=== PATIENT | male | born 1960 ===

== ENCOUNTER 2016-10-17 14:33 | Inpatient (IN) | payer MEDICAID, OTHER ==
--- NOTE | 2016-10-17 15:23 | C.PDOC ---
History Of Present Illness 56 y/o male with Hx of ETOH abuse and kidney stones presents to ED with complaints of x5 day of dizziness and bilateral flank pain that radiates to abdomen. Patient also reports x1 episode of vomit today. Patient denies urinary symptoms, Chest pain or Shortness of breath. Patient did not take any medications for symptoms. No other complaints at this time. Time Seen by Provider: 10/17/16 14:49 Chief Complaint (Nursing): Male Genitourinary History Per: Patient History/Exam Limitations: no limitations Onset/Duration Of Symptoms: Days Current Symptoms Are (Timing): Still Present Past Medical History Reviewed: Historical Data, Nursing Documentation, Vital Signs Vital Signs: Last Vital Signs Temp 97.7 F 10/17/16 14:38 Pulse 90 10/17/16 18:36 Resp 16 10/17/16 18:36 BP 141/90 10/17/16 18:36 Pulse Ox 100 10/17/16 18:36 - Medical History PMH: Arthritis, Asthma, Back Problems, HTN, Kidney Stones, Chronic Kidney Disease, Rheumatoid Arthritis Surgical History: Back Surgery Family History: States: Unknown Family Hx - Social History Hx Tobacco Use: Yes Hx Alcohol Use: Yes Hx Substance Use: No - Immunization History Hx Tetanus Toxoid Vaccination: No Hx Influenza Vaccination: Yes (04/11/2016) Hx Pneumococcal Vaccination: Yes (04/11/2016) Review Of Systems Constitutional: Negative for: Fever, Chills Cardiovascular: Negative for: Chest Pain Respiratory: Negative for: Shortness of Breath Gastrointestinal: Positive for: Vomiting. Negative for: Nausea, Diarrhea Musculoskeletal: Positive for: Back Pain Neurological: Negative for: Headache, Dizziness Physical Exam - Physical Exam Appears: Non-toxic, No Acute Distress Skin: Normal Color, Warm Head: Atraumatic, Normacephalic Eye(s): bilateral: Normal Inspection, PERRL, EOMI, Other (mild rotary nystagmus) Oral Mucosa: Dry (Slight dry mucosa) Cardiovascular: Rhythm Regular Respiratory: Normal Breath Sounds, No Rales, No Rhonchi, No Wheezing Gastrointestinal/Abdominal: Soft, No Tenderness, No Guarding, No Rebound Back: CVA Tenderness (Bilat CVA tenderness ), Other (Flank Tenderness) Neurological/Psych: Oriented x3, Normal Speech, Normal Cognition Gait: Other (Upper Gait Nystagmus) ED Course And Treatment - Laboratory Results Result Diagrams: 10/17/16 16:06 10/17/16 16:06 ECG Rhythm: Sinus Rhythm ECG Interpretation: Normal Rate From EC O2 Sat by Pulse Oximetry: 99 (Room air) Pulse Ox Interpretation: Normal - CT Scan/US Abd/pelvic CT/US Interpretation: FINDINGS: LOWER THORAX: 5 mm nodule in right middle lobe. No followup required as per Fleischner society criteria. Stable pleural- based scar in left lower. LIVER: Normal size and contour. Diffusely diminished attenuation consistent with fatty infiltration. No mass. No biliary ductal dilatation. GALLBLADDER AND BILE DUCTS: Unremarkable. PANCREAS: Unremarkable. No gross lesion or ductal dilatation. SPLEEN: Unremarkable. ADRENALS: Unremarkable. No mass. KIDNEYS AND URETERS: Unremarkable. No hydronephrosis. No solid mass. No renal or ureteral calculus. VASCULATURE: Unremarkable. No aortic aneurysm. BOWEL: Unremarkable. No obstruction. No gross mural thickening. APPENDIX: Unremarkable. Normal appendix. PERITONEUM: Unremarkable. No free fluid. No free air. LYMPH NODES: Unremarkable. No enlarged lymph nodes. BLADDER: Unremarkable. REPRODUCTIVE: Normal prostate. BONES: Stable asymmetric right lateral wedge compression deformity of T11 vertebral body. OTHER FINDINGS: None. IMPRESSION: No evidence of urinary calculus or urinary tract obstruction. Fatty infiltration of the liver. Minor findings as above. Stable wedge compression deformity T11 vertebral body. CT head CT/US Interpretation: FINDINGS: HEMORRHAGE: No intracranial hemorrhage. BRAIN : No mass effect or edema. Scattered periventricular and subcortical white matter hypodensities, which are nonspecific, but often seen with chronic microvascular ischemic disease. VENTRICLES: No hydrocephalus. CALVARIUM: Unremarkable. PARANASAL SINUSES: Unremarkable as visualized. No significant inflammatory changes. MASTOID AIR CELLS: Unremarkable as visualized. No inflammatory changes. OTHER FINDINGS: Mild opacification of the right external auditory canal, likely cerumen. IMPRESSION: Scattered nonspecific white matter changes as above. Please note that MRI with diffusion imaging is more sensitive in the detection of acute ischemic event. Medical Decision Making Medical Decision Making: discussed with Dr Lopez, requests admit to Dr Bui Disposition Discussed With : Clay Lopez Doctor Will See Patient In The: ED - Disposition Disposition Time: 18:17 Condition: STABLE - Clinical Impression Clinical Impression: Acute hyponatremia, Dizziness, Back pain - PA / GIS SPECIALIST / Resident Statement MD/DO has reviewed & agrees with the documentation as recorded. - Scribe Statement The provider has reviewed the documentation as recorded by the Scribe Santi Mccoy All medical record entries made by the Scribe were at my direction and personally dictated by me. I have reviewed the chart and agree that the record accurately reflects my personal performance of the history, physical exam, medical decision making, and the department course for this patient. I have also personally directed, reviewed, and agree with the discharge instructions and disposition. Decision To Admit - Pt Status Changed To: Hospital Disposition Of: Inpatient - Admit Certification Admit to Inpatient:: After my assessment, the patient will require hospitalization for at least two midnights. This is because of the severity of symptoms shown, intensity of services needed, and/or the medical risk in this patient being treated as an outpatient. - InPatient: Physician Admission Certification: I certify that this patient requires 2 or more midnights of care for the following reason:: for treatment of hyponatremia - . Bed Request Type: Regular Admitting Physician: Harjit Bui Patient Diagnosis: Acute hyponatremia, Dizziness, Back pain
[2016-10-17 16:14] LABS: BASO % 0.8 % (0.0-2.0); EOS % 1.3 % (0.0-4.0); HEMATOCRIT 40.3 % (35.0-51.0); LYMPH # 0.5 K/uL (1.0-4.3); LYMPH % 16.3 % (20.0-40.0); MEAN CORPUSCULAR HEMOGLOBIN 33.8 pg (27.0-31.0); MEAN CORPUSCULAR HGB CONC 34.1 g/dL (33.0-37.0); MEAN PLATELET VOLUME 9.2 fL (7.2-11.7); MONO # 0.3 K/uL (0.0-0.8); MONO % 11.2 % (0.0-10.0); NRBC % 0.1 % (0.0-2.0); RED CELL DISTRIBUTION WIDTH 14.7 % (11.5-14.5); WHITE BLOOD COUNT 3.1 K/uL (4.8-10.8)
[2016-10-17 16:20] LABS: CHLORIDE 79 mmol/L (98-107)
[2016-10-17 16:21] LABS: POTASSIUM 3.5 mmol/L (3.6-5.2)
[2016-10-17 16:23] LABS: BILIRUBIN,TOTAL 1.8 mg/dL (0.2-1.3); CARBON DIOXIDE 26 mmol/L (22-30); GFR AFRICAN-AMERICAN > 60
[2016-10-17 16:24] LABS: ALB/GLOB RATIO 1.2 (1.0-2.1); ALKALINE PHOSPHATASE 100 U/L (38-126); ALT/SGPT 72 U/L (21-72); AST/SGOT 302 U/L (17-59); BLOOD UREA NITROGEN 8 mg/dL (9-20); CALCIUM 8.9 mg/dl (8.6-10.4); GLUCOSE,RANDOM 93 mg/dL (75-110)
[2016-10-17 16:28] LABS: SODIUM 119 mmol/L (132-148)
--- NOTE | 2016-10-17 16:40 | CT ---
PROCEDURE: CT HEAD WITHOUT CONTRAST. HISTORY: [place] and dizzy x 5 days COMPARISON: None available. TECHNIQUE: Axial computed tomography images were obtained through the head/brain without intravenous contrast. Radiation dose: Total exam DLP = 726.33 mGy-cm. This CT exam was performed using one or more of the following dose reduction techniques: Automated exposure control, adjustment of the mA and/or kV according to patient size, and/or use of iterative reconstruction technique. FINDINGS: HEMORRHAGE: No intracranial hemorrhage. BRAIN: No mass effect or edema. Scattered periventricular and subcortical white matter hypodensities, which are nonspecific, but often seen with chronic microvascular ischemic disease. VENTRICLES: No hydrocephalus. CALVARIUM: Unremarkable. PARANASAL SINUSES: Unremarkable as visualized. No significant inflammatory changes. MASTOID AIR CELLS: Unremarkable as visualized. No inflammatory changes. OTHER FINDINGS: Mild opacification of the right external auditory canal, likely cerumen. IMPRESSION: Scattered nonspecific white matter changes as above. Please note that MRI with diffusion imaging is more sensitive in the detection of acute ischemic event.
[2016-10-17 16:43] LABS: RBC URINE 5 /hpf (0-3); URINE BILIRUBIN NEGATIVE (NEGATIVE); URINE BLOOD 1+ (NEGATIVE); URINE COLOR Yellow (YELLOW); URINE GLUCOSE (UA) NORMAL (Normal); URINE KETONE 1+ mg/dL (NEGATIVE); URINE LEUKOCYTE ESTERASE NEG Leu/uL (Negative); URINE PROTEIN 2+ mg/dL (NEGATIVE); URINE UROBILINOGEN NORMAL mg/dL (0.2-1.0); WBC URINE 1 /hpf (0-5)
--- NOTE | 2016-10-17 16:47 | CT ---
PROCEDURE: CT Abdomen and Pelvis without intravenous contrast HISTORY: bilateral flank pain , hx stones COMPARISON: 08/09/2016 TECHNIQUE: With and without contrast. . Contrast Dose: 0 Radiation dose: Total exam DLP = 205.19 mGy-cm. This CT exam was performed using one or more of the following dose reduction techniques: Automated exposure control, adjustment of the mA and/or kV according to patient size, and/or use of iterative reconstruction technique. FINDINGS: LOWER THORAX: 5 mm nodule in right middle lobe. No followup required as per Fleischner society criteria. Stable pleural-based scar in left lower LIVER: Normal size and contour. Diffusely diminished attenuation consistent with fatty infiltration. No mass. No biliary ductal dilatation. GALLBLADDER AND BILE DUCTS: Unremarkable. PANCREAS: Unremarkable. No gross lesion or ductal dilatation. SPLEEN: Unremarkable. ADRENALS: Unremarkable. No mass. KIDNEYS AND URETERS: Unremarkable. No hydronephrosis. No solid mass. No renal or ureteral calculus. VASCULATURE: Unremarkable. No aortic aneurysm. BOWEL: Unremarkable. No obstruction. No gross mural thickening. APPENDIX: Unremarkable. Normal appendix. PERITONEUM: Unremarkable. No free fluid. No free air. LYMPH NODES: Unremarkable. No enlarged lymph nodes. BLADDER: Unremarkable. REPRODUCTIVE: Normal prostate BONES: Stable asymmetric right lateral wedge compression deformity of T11 vertebral body. OTHER FINDINGS: None. IMPRESSION: No evidence of urinary calculus or urinary tract obstruction. Fatty infiltration of the liver. Minor findings as above. Stable wedge compression deformity T11 vertebral body.
[2016-10-17] MEDS ORDERED: Sodium Chloride 0.9% 1,000 ML IV SCH (18:30)
[2016-10-17] MEDS: Sodium Chloride 0.9% 1,000 ML IV SCH (22:28)
--- NOTE | 2016-10-18 00:54 | CP.PCM.HP ---
<Ed Soares - Last Filed: 10/18/16 00:49> History of Present Illness - History of Present Illness History of Present Illness: C: "back pain" HPI: 56 year old male with history of asthma, HTN, kidney stones, and TB presents with complaint of back pain for 5 days, diarrhea, and one episode of vomiting today. He says he had a kidney stone in the past and that this feels similar. He reports that he has had loose stool for a few days which he described as watery and green/black but no gross blood. He has diffuse aches in his feet, shoulders, and back. On previous admission he had similar complaints. He has some lower abdominal pain. He denies any numbness or tingling but has general weakness. Otherwise he denies any chest pain, cough, SOB, palpitations, dizziness, or recent falls. He reports a history of alcohol use and recently bought a bottle of lorin but denies any withdrawal symptoms. PMD: None PMHx: Htn, asthma, hx of kidney stones, hx TB PSHx: surgery for kidney stones and leg surgery Allergies: NKDA Fam hx: Mother- kidney ca, father- [place] at age 50 Social: smokes 8-10 cigarettes daily for past 30 years.Drinks about 2 beers per week in social events, for past 10 years. Denies illegal drug use. Lives alone. Present on Admission - Present on Admission Any Indicators Present on Admission: No Review of Systems - Constitutional Constitutional: Weakness. absent: Chills, Fever - EENT Eyes: absent: Change in Vision, Spots in Vision Ears: absent: Decreased Hearing Nose/Mouth/Throat: absent: Dysphagia, Sore Throat - Cardiovascular Cardiovascular: absent: Chest Pain, Dyspnea, Leg Edema - Respiratory Respiratory: absent: Cough, Dyspnea, Wheezing - Gastrointestinal Gastrointestinal: Abdominal Pain, Nausea, Vomiting - Genitourinary Genitourinary: absent: Dysuria - Integumentary Integumentary: absent: Lesions, Wounds - Neurological Neurological: Weakness. absent: Dizziness, Headaches - Psychiatric Psychiatric: absent: Anxiety, Depression - Endocrine Endocrine: Fatigue Past Patient History - Infectious Disease Hx of Infectious Diseases: None - Tetanus Immunizations Tetanus Immunization: Unknown - Past Medical History & Family History Past Medical History?: Yes - Past Social History Smoking Status: Light Smoker < 10 Cigarettes Daily Alcohol: Social Drugs: Denies Home Situation {Lives}: Alone - CARDIAC Hx Hypertension: Yes - PULMONARY Hx Asthma: Yes - NEUROLOGICAL Hx Neurological Disorder: No - HEENT Hx HEENT Problems: No - RENAL Hx Chronic Kidney Disease: Yes Hx Kidney Stones: Yes - ENDOCRINE/METABOLIC Hx Endocrine Disorders: No - HEMATOLOGICAL/ONCOLOGICAL Hx Blood Disorders: No - INTEGUMENTARY Hx Dermatological Problems: No - MUSCULOSKELETAL/RHEUMATOLOGICAL Hx Arthritis: Yes Hx Rheumatoid Arthritis: Yes - GASTROINTESTINAL Hx Gastrointestinal Disorders: Yes Hx Constipation: Yes - GENITOURINARY/GYNECOLOGICAL Hx Genitourinary Disorders: No - PSYCHIATRIC Hx Substance Use: No - SURGICAL HISTORY Hx Surgeries: Yes - ANESTHESIA Hx Anesthesia: No Hx Anesthesia Reactions: No Hx Malignant Hyperthermia: No Meds Allergies/Adverse Reactions: Allergies Allergy/AdvReac Type Severity Reaction Status Date / Time No Known Allergies Allergy Verified 10/17/16 14:50 Physical Exam - Constitutional Appears: Non-toxic, No Acute Distress - Head Exam Head Exam: ATRAUMATIC, NORMOCEPHALIC - Eye Exam Eye Exam: Conjunctival injection, EOMI, PERRL Pupil Exam: NORMAL ACCOMODATION, PERRL - ENT Exam ENT Exam: Mucous Membranes Dry. absent: Normal Oropharynx (poor dentition) - Neck Exam Neck exam: Negative for: Tenderness - Respiratory Exam Respiratory Exam: Clear to Auscultation Bilateral, NORMAL BREATHING PATTERN. absent: Rales, Rhonchi, Wheezes - Cardiovascular Exam Cardiovascular Exam: REGULAR RHYTHM, +S1, +S2. absent: Gallop, Rubs, Systolic Murmur - GI/Abdominal Exam GI & Abdominal Exam: Normal Bowel Sounds, Soft, Tenderness (LLQ) Additional comments: scar on left upper abdomen - Rectal Exam Rectal Exam: NORMAL INSPECTION. absent: Black Stool, Bloody Stool - Exam Exam: NORMAL INSPECTION. absent: Circumcision - Extremities Exam Extremities exam: Positive for: normal capillary refill, normal inspection, pedal pulses present. Negative for: pedal edema, tenderness - Back Exam Back exam: CVA tenderness (L), CVA tenderness (R), tenderness (lumbar between T10-:2). absent: paraspinal tenderness - Neurological Exam Neurological exam: Alert, CN II-XII Intact, Oriented x3 - Psychiatric Exam Psychiatric exam: Normal Affect, Normal Mood - Skin Skin Exam: Dry, Intact, Normal Color, Warm Results - Vital Signs Recent Vital Signs: Last Vital Signs Temp 97.6 F 10/17/16 22:25 Pulse 102 H 10/17/16 22:25 Resp 20 10/17/16 22:25 BP 150/87 10/17/16 22:25 Pulse Ox 100 10/17/16 22:25 - Labs Result Diagrams: 10/17/16 16:06 10/17/16 16:06 Labs: Laboratory Results - last 24 hr 10/17/16 21:18 Stool Occult Blood Negative Assessment & Plan - Assessment and Plan (Free Text) Plan: Electrolyte Imbalance * Head CT showed scattered non specific white matter changes [see full report] * EKG showed NSR @90bpm no ST changes * replenish with NS@100 * f/u repeat BMP * f/u urine electrolytes, creatinine Flank pain * No evidence of urinary calculus or urinary tract obstruction, fatty liver, compression deformity of T11 vertebral body [see full report] * afebrile w/o leukocytosis * UA positive for protein, ketones, and blood * pain control w/ motrin and morphine Diarrhea * not active at this time * hemoccult negative * Hgb and hct stable HTN * BP wnl * Continue home norvasc Hx of asthma * Asymptomatic at this time * continue home Ventolin Hx of ETOH abuse * Head CT showed scattered non specific white matter changes [see full report] * Educated on importance of cessation * CIWAA protocol * Ativan 2mg Q4 prn withdrawals Hx of tobacco use * educated on need for cessation * pt refused nicoderm patch ppx * protonix 40mg IV Q12H * Zofran 4mg Q4H * SCD's Assesment and plan discussed with attending physician. <Harjit Bui P - Last Filed: 10/19/16 20:01> Results - Vital Signs Recent Vital Signs: Last Vital Signs Temp 98.4 F 10/19/16 17:01 Pulse 101 H 10/19/16 17:01 Resp 20 10/19/16 17:01 BP 161/91 H 10/19/16 17:01 Pulse Ox 100 10/19/16 17:01 - Labs Result Diagrams: 10/19/16 07:31 10/19/16 07:31 Labs: Laboratory Results - last 24 hr 10/18/16 10/19/16 10/19/16 20:00 00:03 07:31 WBC 4.5 L RBC 3.92 L Hgb 13.4 Hct 39.7 MCV 101.2 H MCH 34.2 H MCHC 33.8 RDW 15.0 H Plt Count 127 L MPV 9.0 Neut % (Auto) 53.7 Lymph % (Auto) 24.5 Mckinley % (Auto) 13.7 H Eos % (Auto) 6.6 H Baso % (Auto) 1.5 Neut # 2.4 Lymph # 1.1 Mckinley # 0.6 Eos # 0.3 Baso # 0.1 Sodium 130 L Potassium 4.3 Chloride 93 L Carbon Dioxide 28 Anion Gap 13 BUN 8 L Creatinine 0.6 L Est GFR ( Amer) > 60 Est GFR (Non-Af Amer) > 60 Random Glucose 87 Calcium 8.9 Total Bilirubin AST ALT Alkaline Phosphatase Total Protein Albumin Globulin Albumin/Globulin Ratio Urine Color Yellow Urine Clarity Clear Urine pH 7.0 Ur Specific Britton 1.008 Urine Protein 1+ H Urine Glucose (UA) 1+ H Urine Ketones Negative Urine Blood Negative Urine Nitrate Negative Urine Bilirubin Negative Urine Urobilinogen Normal Ur Leukocyte Esterase Neg Urine WBC (Auto) < 1 Urine RBC (Auto) 1 10/19/16 07:31 WBC RBC Hgb Hct MCV MCH MCHC RDW Plt Count MPV Neut % (Auto) Lymph % (Auto) Mckinley % (Auto) Eos % (Auto) Baso % (Auto) Neut # Lymph # Mckinley # Eos # Baso # Sodium 129 L Potassium 3.9 Chloride 92 L Carbon Dioxide 25 Anion Gap 16 BUN 6 L Creatinine 0.6 L Est GFR ( Amer) > 60 Est GFR (Non-Af Amer) > 60 Random Glucose 94 Calcium 9.0 Total Bilirubin 1.0 AST 280 H ALT 75 H Alkaline Phosphatase 91 Total Protein 7.5 Albumin 4.1 Globulin 3.4 Albumin/Globulin Ratio 1.2 Urine Color Urine Clarity Urine pH Ur Specific Britton Urine Protein Urine Glucose (UA) Urine Ketones Urine Blood Urine Nitrate Urine Bilirubin Urine Urobilinogen Ur Leukocyte Esterase Urine WBC (Auto) Urine RBC (Auto) Attending/Attestation - Attestation I have personally seen and examined this patient.: Yes I have fully participated in the care of the patient.: Yes I have reviewed all pertinent clinical information: Yes
[2016-10-18] MEDS ORDERED: Albuterol HFA 90 mcg/actuation (8 g) IH PRN (04:00)
[2016-10-18] MEDS: Sodium Chloride 0.9% 1,000 ML IV SCH (04:10)
[2016-10-18 04:51] LABS: BASO % 1.2 % (0.0-2.0); EOS # 0.2 K/uL (0.0-0.7); EOS % 4.8 % (0.0-4.0); HEMATOCRIT 39.3 % (35.0-51.0); LYMPH % 25.6 % (20.0-40.0); MEAN CELL VOLUME 99.3 fL (80.0-94.0); MEAN CORPUSCULAR HEMOGLOBIN 33.9 pg (27.0-31.0); MEAN CORPUSCULAR HGB CONC 34.1 g/dL (33.0-37.0); MEAN PLATELET VOLUME 9.1 fL (7.2-11.7); MONO # 0.5 K/uL (0.0-0.8); MONO % 12.6 % (0.0-10.0); NRBC % 0.1 % (0.0-2.0)
[2016-10-18 05:07] LABS: CHLORIDE 87 mmol/L (98-107)
[2016-10-18 05:08] LABS: POTASSIUM 3.5 mmol/L (3.6-5.2); SODIUM 125 mmol/L (132-148)
[2016-10-18 05:10] LABS: ALB/GLOB RATIO 1.2 (1.0-2.1); AST/SGOT 265 U/L (17-59); BILIRUBIN,TOTAL 1.5 mg/dL (0.2-1.3); BLOOD UREA NITROGEN 10 mg/dL (9-20); CARBON DIOXIDE 29 mmol/L (22-30); GFR AFRICAN-AMERICAN > 60; TOTAL PROTEIN 7.1 g/dL (6.3-8.3)
[2016-10-18 05:11] LABS: ALKALINE PHOSPHATASE 114 U/L (38-126); ALT/SGPT 69 U/L (21-72); CALCIUM 8.8 mg/dl (8.6-10.4); GLUCOSE,RANDOM 96 mg/dL (75-110)
[2016-10-18] MEDS ORDERED: Potassium Chloride 20 mEq ER Tab PO ONE (06:18)
[2016-10-18 06:24] LABS: CREATININE, RANDOM URINE 26.3 mg/dL
[2016-10-18] MEDS ORDERED: Tramadol 25 mg PO PRN (12:39)
--- NOTE | 2016-10-18 15:56 | CP.PCM.PN ---
<Charles Sheldon - Last Filed: 10/18/16 15:50> Subjective - Date & Time of Evaluation Date of Evaluation: 10/18/16 Time of Evaluation: 09:00 - Subjective Subjective: PGY2 on medicine Dr. Cutler service: Pt seen and examined at bedside this morning. Pt reports lower abdominal pain and bilateral flank pain, but later states pain medicine controlled with the pain. Pt also complains bilateral feet pain as well. Objective - Vital Signs/Intake and Output Vital Signs (last 24 hours): Temp Pulse Resp BP Pulse Ox 98.2 F 87 20 132/88 97 10/18/16 08:49 10/18/16 08:49 10/18/16 08:49 10/18/16 08:49 10/18/16 08:49 Intake and Output: 10/18/16 10/18/16 06:59 18:59 Intake Total 800 Output Total 1000 Balance -200 - Medications Medications: Current Medications Albuterol (Ventolin Hfa 90 Mcg/Actuation (8 G)) 1 puff IH RQ4 PRN PRN Reason: Shortness of Breath Amlodipine Besylate (Norvasc) 10 mg PO DAILY [facility] Last Admin: 10/18/16 09:54 Dose: 10 mg Heparin Sodium (Porcine) (Heparin) 5,000 units SC Q8 [facility] Last Admin: 10/18/16 13:47 Dose: 5,000 units Ibuprofen (Motrin Tab) 600 mg PO Q6H PRN PRN Reason: Pain, moderate (4-7) Last Admin: 10/18/16 09:54 Dose: 600 mg Morphine Sulfate (Morphine) 2 mg IVP Q4 PRN PRN Reason: Pain, severe (8-10) Last Admin: 10/18/16 08:54 Dose: 2 mg Ondansetron HCl (Zofran Inj) 4 mg IVP Q6 PRN PRN Reason: Nausea/Vomiting Pantoprazole Sodium (Protonix Inj) 40 mg IVP Q12H [facility] Last Admin: 10/18/16 09:55 Dose: 40 mg Pneumococcal Polyvalent Vaccine (Pneumovax 23 Vaccine) 0.5 ml IM .ONCE ONE Stop: 10/19/16 10:01 Tramadol HCl (Ultram) 25 mg PO TID PRN PRN Reason: moderate pain - Labs Labs: 10/18/16 04:47 10/18/16 04:47 - Constitutional Appears: Non-toxic, No Acute Distress - Head Exam Head Exam: NORMAL INSPECTION, NORMOCEPHALIC - Eye Exam Eye Exam: Normal appearance Pupil Exam: NORMAL ACCOMODATION - Respiratory Exam Respiratory Exam: Clear to Ausculation Bilateral, NORMAL BREATHING PATTERN. absent: Rhonchi, Wheezes - Cardiovascular Exam Cardiovascular Exam: REGULAR RHYTHM, +S1, +S2. absent: Gallop, Rubs - GI/Abdominal Exam GI & Abdominal Exam: Soft, Tenderness (lower abdomen ), Normal Bowel Sounds - Extremities Exam Extremities Exam: Normal Capillary Refill. absent: Calf Tenderness, Joint Swelling, Pedal Edema Additional comments: +pedal pulse bilaterally, negative straight leg - Back Exam Additional comments: questionable bilateral CVA tenderness, likely musculoskeletal origin. No spinal tenderness on palpation - Neurological Exam Neurological Exam: Alert, Awake, Oriented x3 - Psychiatric Exam Psychiatric exam: Normal Mood - Skin Skin Exam: Intact Assessment and Plan - Assessment and Plan (Free Text) Assessment: Electrolyte Imbalance * Head CT showed scattered non specific white matter changes [see full report] * EKG showed NSR @90bpm no ST changes * replenish with NS@100 * Repeat Na 125 * Urine osmo 146 * Nephro Dr. Chanel consulted, help appreciated. Elevated LFT * AST 302, ALT 72 on admission * AST 265, ALT 69 today, improved * T bili trending down * Negative HIV and hepatitis panel * Continue monitoring, likely secondary to fatty liver vs ETOH Flank pain * No evidence of urinary calculus or urinary tract obstruction, fatty liver, compression deformity of T11 vertebral body [see full report] * Pt had chronic T11 compression deformity since 04/16/16 CT * afebrile w/o leukocytosis * UA positive for protein, ketones, and blood * pain control w/ motrin and morphine * F/U MRI lumbar with T10-T12 levels, consult IR if needed Diarrhea * not active at this time * hemoccult negative * Hgb and hct stable HTN * BP wnl * Continue home norvasc Hx of asthma * Asymptomatic at this time * continue home Ventolin Hx of ETOH abuse * Head CT showed scattered non specific white matter changes [see full report] * Educated on importance of cessation * CIWAA protocol * Ativan 2mg Q4 prn withdrawals Hx of tobacco use * educated on need for cessation * pt refused nicoderm patch ppx * protonix 40mg IV Q12H * Zofran 4mg Q4H * SCD's <Kate Cutlert - Last Filed: 11/23/16 11:51> Objective - Vital Signs/Intake and Output Vital Signs (last 24 hours): Temp Pulse Resp BP Pulse Ox 98.1 F 101 H 20 121/82 99 10/21/16 08:16 10/21/16 08:16 10/21/16 08:16 10/21/16 08:16 10/30/16 14:49 - Labs Labs: 10/21/16 07:09 10/21/16 07:09 PT 10.0 SECONDS (9.7-12.2) 10/20/16 07:22 INR 0.9 10/20/16 07:22 APTT 71 SECONDS (21-34) H D 10/20/16 07:22 Attending/Attestation - Attestation I have personally seen and examined this patient.: Yes I have fully participated in the care of the patient.: Yes I have reviewed all pertinent clinical information, including history, physical exam and plan: Yes Notes (Text): Patient seen and examined with the resident. Agree with the resident's evaluation, assessment and plan. Electrolyte Imbalance - Hyponatremia Elevated LFT -fatty liver and ETOH
[2016-10-18 17:46] LABS: INR 0.9
[2016-10-18 20:23] LABS: CHLORIDE 93 mmol/L (98-107); POTASSIUM 4.3 mmol/L (3.6-5.2); SODIUM 130 mmol/L (132-148)
[2016-10-18 20:26] LABS: BLOOD UREA NITROGEN 8 mg/dL (9-20); CARBON DIOXIDE 28 mmol/L (22-30); GFR AFRICAN-AMERICAN > 60; GLUCOSE,RANDOM 87 mg/dL (75-110)
[2016-10-18 20:27] LABS: CALCIUM 8.9 mg/dl (8.6-10.4)
[2016-10-19 00:08] LABS: RBC URINE 1 /hpf (0-3); URINE BILIRUBIN NEGATIVE (NEGATIVE); URINE BLOOD NEGATIVE (NEGATIVE); URINE COLOR Yellow (YELLOW); URINE GLUCOSE (UA) 1+ mg/dL (Normal); URINE KETONE NEGATIVE (NEGATIVE); URINE LEUKOCYTE ESTERASE NEG Leu/uL (Negative); URINE PROTEIN 1+ mg/dL (NEGATIVE); URINE UROBILINOGEN NORMAL mg/dL (0.2-1.0); WBC URINE < 1 /hpf (0-5)
[2016-10-19 07:38] LABS: BASO # 0.1 K/uL (0.0-0.2); BASO % 1.5 % (0.0-2.0); EOS # 0.3 K/uL (0.0-0.7); EOS % 6.6 % (0.0-4.0); HEMATOCRIT 39.7 % (35.0-51.0); LYMPH # 1.1 K/uL (1.0-4.3); LYMPH % 24.5 % (20.0-40.0); MEAN CELL VOLUME 101.2 fL (80.0-94.0); MEAN CORPUSCULAR HEMOGLOBIN 34.2 pg (27.0-31.0); MEAN CORPUSCULAR HGB CONC 33.8 g/dL (33.0-37.0); MONO # 0.6 K/uL (0.0-0.8); MONO % 13.7 % (0.0-10.0); NRBC % 0.1 % (0.0-2.0); WHITE BLOOD COUNT 4.5 K/uL (4.8-10.8)
[2016-10-19 08:03] LABS: CHLORIDE 92 mmol/L (98-107); SODIUM 129 mmol/L (132-148)
[2016-10-19 08:04] LABS: POTASSIUM 3.9 mmol/L (3.6-5.2)
[2016-10-19 08:06] LABS: ALB/GLOB RATIO 1.2 (1.0-2.1); ALKALINE PHOSPHATASE 91 U/L (38-126); ALT/SGPT 75 U/L (21-72); AST/SGOT 280 U/L (17-59); BLOOD UREA NITROGEN 6 mg/dL (9-20); CARBON DIOXIDE 25 mmol/L (22-30); GFR AFRICAN-AMERICAN > 60; GLUCOSE,RANDOM 94 mg/dL (75-110); TOTAL PROTEIN 7.5 g/dL (6.3-8.3)
[2016-10-19] MEDS ORDERED: Pneumococcal 23-Valent Vaccine IM ONE (10:00)
--- NOTE | 2016-10-19 15:04 | CP.PCM.PN ---
<Charles Sheldon - Last Filed: 10/19/16 15:02> Subjective - Date & Time of Evaluation Date of Evaluation: 10/19/16 Time of Evaluation: 09:00 - Subjective Subjective: PGY2 on medicine Dr. Cutler service: Pt seen and examined at bedside this morning. Pt reports lower abdominal pain and bilateral flank pain still but controlled with medicine. Pt also complains bilateral feet pain again. Objective - Vital Signs/Intake and Output Vital Signs (last 24 hours): Temp Pulse Resp BP Pulse Ox 97.8 F 88 17 120/81 99 10/19/16 08:15 10/19/16 08:15 10/19/16 08:15 10/19/16 08:15 10/19/16 08:15 Intake and Output: 10/19/16 10/19/16 06:59 18:59 Intake Total 1050 Output Total 700 Balance 350 - Medications Medications: Current Medications Albuterol (Ventolin Hfa 90 Mcg/Actuation (8 G)) 1 puff IH RQ4 PRN PRN Reason: Shortness of Breath Amlodipine Besylate (Norvasc) 10 mg PO DAILY [facility] Last Admin: 10/19/16 09:36 Dose: 10 mg Heparin Sodium (Porcine) (Heparin) 5,000 units SC Q8 [facility] Last Admin: 10/19/16 13:09 Dose: 5,000 units Ibuprofen (Motrin Tab) 600 mg PO Q6H PRN PRN Reason: Pain, moderate (4-7) Last Admin: 10/18/16 18:10 Dose: 600 mg Morphine Sulfate (Morphine) 2 mg IVP Q4 PRN PRN Reason: Pain, severe (8-10) Last Admin: 10/19/16 08:36 Dose: 2 mg Ondansetron HCl (Zofran Inj) 4 mg IVP Q6 PRN PRN Reason: Nausea/Vomiting Pantoprazole Sodium (Protonix Inj) 40 mg IVP Q12H [facility] Last Admin: 10/19/16 09:36 Dose: 40 mg - Labs Labs: 10/19/16 07:31 10/19/16 07:31 PT 10.5 SECONDS (9.7-12.2) 10/18/16 17:16 INR 0.9 10/18/16 17:16 APTT 51 SECONDS (21-34) H 05/20/17 17:16 - Constitutional Appears: Non-toxic, No Acute Distress - Head Exam Head Exam: NORMOCEPHALIC - Eye Exam Eye Exam: Normal appearance Pupil Exam: NORMAL ACCOMODATION - ENT Exam ENT Exam: Mucous Membranes Moist - Respiratory Exam Respiratory Exam: Clear to Ausculation Bilateral, NORMAL BREATHING PATTERN. absent: Rhonchi, Wheezes - Cardiovascular Exam Cardiovascular Exam: REGULAR RHYTHM, +S1, +S2. absent: Gallop, Rubs - GI/Abdominal Exam GI & Abdominal Exam: Soft, Normal Bowel Sounds - Extremities Exam Extremities Exam: absent: Pedal Edema - Back Exam Back Exam: tenderness - Neurological Exam Neurological Exam: Alert, Awake, Oriented x3 - Psychiatric Exam Psychiatric exam: Normal Mood Assessment and Plan - Assessment and Plan (Free Text) Assessment: Flank pain * No evidence of urinary calculus or urinary tract obstruction, fatty liver, compression deformity of T11 vertebral body [see full report] * Pt had chronic T11 compression deformity since 04/16/16 CT * afebrile w/o leukocytosis * UA positive for protein, ketones, and blood * pain control w/ motrin and morphine * F/U MRI lumbar with T10-T12 levels, consult IR if needed Electrolyte Imbalance * Head CT showed scattered non specific white matter changes [see full report] * EKG showed NSR @90bpm no ST changes * replenish with NS@100 * Na improving * Urine osmo 146 * Nephro Dr. Chanel consulted, help appreciated. Elevated LFT * AST 302, ALT 72 on admission * AST 265, ALT 69 today, improved * T bili trending down * Negative HIV and hepatitis panel * Continue monitoring, likely secondary to fatty liver vs ETOH Diarrhea * not active at this time * hemoccult negative * Hgb and hct stable HTN * BP wnl * Continue home norvasc Hx of asthma * Asymptomatic at this time * continue home Ventolin Hx of ETOH abuse * Head CT showed scattered non specific white matter changes [see full report] * Educated on importance of cessation * CIWAA protocol * Ativan 2mg Q4 prn withdrawals Hx of tobacco use * educated on need for cessation * pt refused nicoderm patch ppx * protonix 40mg IV Q12H * Zofran 4mg Q4H * SCD's <Michael Cutler - Last Filed: 11/23/16 11:59> Objective - Vital Signs/Intake and Output Vital Signs (last 24 hours): Temp Pulse Resp BP Pulse Ox 98.1 F 101 H 20 121/82 99 10/21/16 08:16 10/21/16 08:16 10/21/16 08:16 10/21/16 08:16 10/30/16 14:49 - Labs Labs: 10/21/16 07:09 10/21/16 07:09 PT 10.0 SECONDS (9.7-12.2) 10/20/16 07:22 INR 0.9 10/20/16 07:22 APTT 71 SECONDS (21-34) H D 10/20/16 07:22 Attending/Attestation - Attestation I have personally seen and examined this patient.: Yes I have fully participated in the care of the patient.: Yes I have reviewed all pertinent clinical information, including history, physical exam and plan: Yes Notes (Text): Patient seen and examined with the resident. Agree with the resident's assessment, evaluation and plan. Flank pain Electrolyte Imbalance Elevated LFT Diarrhea HTN
[2016-10-19] MEDS ORDERED: Sodium Chloride 0.9% 1,000 ML IV ONE (21:37)
--- NOTE | 2016-10-19 22:36 | CP.PCM.PN ---
Subjective - Date & Time of Evaluation Date of Evaluation: 10/19/16 Time of Evaluation: 12:45 - Subjective Subjective: Patient reports back pain improved; Objective - Vital Signs/Intake and Output Vital Signs (last 24 hours): Temp Pulse Resp BP Pulse Ox 98.4 F 101 H 20 161/91 H 100 10/19/16 17:01 10/19/16 17:01 10/19/16 17:01 10/19/16 17:01 10/19/16 17:01 - Medications Medications: Current Medications Albuterol (Ventolin Hfa 90 Mcg/Actuation (8 G)) 1 puff IH RQ4 PRN PRN Reason: Shortness of Breath Amlodipine Besylate (Norvasc) 10 mg PO DAILY [facility] Last Admin: 10/19/16 09:36 Dose: 10 mg Heparin Sodium (Porcine) (Heparin) 5,000 units SC Q8 [facility] [place] Last Admin: 10/19/16 22:28 Dose: 5,000 units Ibuprofen (Motrin Tab) 600 mg PO Q6H PRN PRN Reason: Pain, moderate (4-7) Last Admin: 10/18/16 18:10 Dose: 600 mg Morphine Sulfate (Morphine) 2 mg IVP Q4 PRN PRN Reason: Pain, severe (8-10) Last Admin: 10/19/16 19:36 Dose: 2 mg Ondansetron HCl (Zofran Inj) 4 mg IVP Q6 PRN PRN Reason: Nausea/Vomiting Pantoprazole Sodium (Protonix Inj) 40 mg IVP Q12H [facility] [place] Last Admin: 10/19/16 22:28 Dose: 40 mg - Labs Labs: 10/19/16 07:31 10/19/16 07:31 PT 10.5 SECONDS (9.7-12.2) 10/18/16 17:16 INR 0.9 10/18/16 17:16 APTT 51 SECONDS (21-34) H 10/18/16 17:16 - Constitutional Appears: Well, No Acute Distress - Head Exam Head Exam: NORMAL INSPECTION - Eye Exam Eye Exam: Normal appearance - ENT Exam ENT Exam: Mucous Membranes Moist - Neck Exam Neck Exam: Normal Inspection - Respiratory Exam Respiratory Exam: Clear to Ausculation Bilateral, NORMAL BREATHING PATTERN. absent: Respiratory Distress - Cardiovascular Exam Cardiovascular Exam: REGULAR RHYTHM, +S1, +S2 - GI/Abdominal Exam GI & Abdominal Exam: Soft. absent: Distended, Tenderness - Extremities Exam Extremities Exam: Normal Inspection - Neurological Exam Neurological Exam: Alert, Awake - Psychiatric Exam Psychiatric exam: Normal Affect Additional comments: somewhat depressed mood - Skin Skin Exam: Warm. absent: Cyanosis Assessment and Plan (1) Acute hyponatremia Assessment & Plan: Resolving, likely secondary to volume depletion and possibly component of SIADH in the setting of pain; had to give 1L D5W over 4 hrs due to rapid correction of hyponatremia (goal was 6-8 meq/L over 24 hrs but dale by 11 meq/L); Na today of 129 acceptable; should improve further on its own as patient continues to have better PO intake; Status: Acute (2) HTN (hypertension), benign Assessment & Plan: Controlled, continue norvasc 10 mg daily; Status: Acute (3) Back pain Assessment & Plan: T11 compression deformity; for MRI; pain adequately controlled, ok to give NSAIDS; Status: Acute (4) Proteinuria Assessment & Plan: Etiology unclear; no overt renal insufficiency; still haven't gotten quantified value yet; will check C3, C4 and CARL; Status: Acute
[2016-10-20 07:35] LABS: BASO # 0.1 K/uL (0.0-0.2); BASO % 0.9 % (0.0-2.0); EOS # 0.2 K/uL (0.0-0.7); EOS % 3.8 % (0.0-4.0); HEMATOCRIT 37.8 % (35.0-51.0); LYMPH # 1.3 K/uL (1.0-4.3); LYMPH % 21.9 % (20.0-40.0); MEAN CELL VOLUME 101.5 fL (80.0-94.0); MEAN CORPUSCULAR HEMOGLOBIN 34.2 pg (27.0-31.0); MEAN CORPUSCULAR HGB CONC 33.7 g/dL (33.0-37.0); MEAN PLATELET VOLUME 8.8 fL (7.2-11.7); MONO # 0.7 K/uL (0.0-0.8); MONO % 11.5 % (0.0-10.0); RED CELL DISTRIBUTION WIDTH 15.2 % (11.5-14.5); WHITE BLOOD COUNT 6.1 K/uL (4.8-10.8)
[2016-10-20 07:39] LABS: CHLORIDE 89 mmol/L (98-107); INR 0.9; SODIUM 126 mmol/L (132-148)
[2016-10-20 07:40] LABS: POTASSIUM 3.8 mmol/L (3.6-5.2)
[2016-10-20 07:42] LABS: ALB/GLOB RATIO 1.3 (1.0-2.1); ALKALINE PHOSPHATASE 81 U/L (38-126); ALT/SGPT 72 U/L (21-72); AST/SGOT 200 U/L (17-59); BLOOD UREA NITROGEN 6 mg/dL (9-20); CALCIUM 9.4 mg/dl (8.6-10.4); CARBON DIOXIDE 25 mmol/L (22-30); GFR AFRICAN-AMERICAN > 60; GLUCOSE,RANDOM 127 mg/dL (75-110); TOTAL PROTEIN 7.5 g/dL (6.3-8.3)
--- NOTE | 2016-10-20 09:12 | CON ---
DATE: 10/18/2016 The patient is a 56-year-old male with a past medical history of hypertension, nephrolithiasis, asthm a and history of treated tuberculosis, presented with complaint of low back pain for the last 1 week, found to have severe hyponatremia. Nephrology, therefore, being consulted. The patient reports developing this back pain over the past 1 week to 10 days, which progressively go t worse, located bilaterally lower back. Was taking Advil twice a day with incomplete relief. The p atkarmen has had decreased p.o. fluid intake during this time period and reports that he started drinki ng more milk, up to 3 glasses a day, and was drinking about 3 glasses a day of water. On the day of presentation, the patient reports having vomited and feeling dizzy, which is why he called an ambulan ce to come here. PAST MEDICAL HISTORY: As mentioned above, reports some sort of procedure done for bilateral kidney s tones about [address] [facility], cannot say exactly what type of procedure, but does indicate that tub es were placed to drain fluid, possibly nephrostomy tubes. SOCIAL HISTORY: Smokes 8-10 cigarettes per day, reports not having smoked for the last few days. Dr singh only at parties. FAMILY HISTORY: Mother with kidney cancer. Father with LA at age 50. REVIEW OF SYSTEMS: CONSTITUTIONAL: Reports associated fevers with his pain recently. Otherwise, his appetite had previ ously been very good. HEENT: Reports some blurry vision yesterday, but has improved today. Denies any sore throat or diff iculty swallowing. Denies any decreased hearing. RESPIRATORY: Reports some cough. CARDIOVASCULAR: Denies any leg swelling or shortness of breath. GASTROINTESTINAL: As mentioned in HPI. Also, reporting lower abdominal pain over the past several d ays. GENITOURINARY: Denies any dysuria or difficulty urinating, no hematuria. SKIN: Denies itching or rashes. NEUROLOGIC: Reports some dizziness yesterday; otherwise, no headaches. PSYCHIATRIC: Denies any depression. PHYSICAL EXAMINATION: VITAL SIGNS: This morning, blood pressure 132/88, heart rate 87, respirations 20, temperature 98.2, O2 sat 97% on room air. GENERAL: No distress, lying flat comfortably, able to converse coherently in full sentences. HEENT: Moist mucous membranes, nonicteric. NECK: No elevated JVD. RESPIRATORY: Lungs are clear to auscultation bilaterally, no rales, no rhonchi, no wheezes. CARDIOVASCULAR: S1, S2, heart sounds normal, no murmurs, no gallops, no rubs. GASTROINTESTINAL: Abdomen tender in lower quadrants, nondistended, soft. GENITOURINARY: No bladder distention. EXTREMITIES: No leg edema. SKIN: Warm, no cyanosis. Normal capillary refill. NEUROLOGIC: Alert and oriented, following commands. PSYCHIATRIC: Normal mood, normal affect. LABORATORY DATA: Labs this morning CBC: WBC 4.0, hemoglobin 13.4, hematocrit 39.3, platelets 110. Chemistry panel: Sodium 125, increased from 119; potassium 3.5, chloride 87, bicarbonate 29, BUN 10, creatinine 0.6. T-bili 1.5, AST 265, ALT 69. UA from yesterday on presentation: Specific gravity 1.010, protein 2+, ketones 1+, blood 1+, urine osmolality this morning 146, urine sodium 22. Abdomin al and pelvis CT done on admission, no evidence of nephrolithiasis currently. ASSESSMENT: 1. Hyponatremia, improving, may be multifactorial. The patient gives a history of decreased p.o. fl uid intake and just consuming milk and water, which would indicate a decreased intake with incr eased free water intake. At the same time, the patient may have gotten volume depleted as well and i n that setting would have had elevated ADH levels that would further cause hyponatremia to worsen. T hirdly, the patient reports being in pain and so cannot rule out a component of syndrome of inappropr iate antidiuretic hormone. Urine osmolality and urine sodium checked about 10 hours after presentati on after the patient had already received a significant amount of volume repletion and it is quite po ssible that urine osmolality on presentation, if checked, may have been very high and decreased drama tically after the patient was volume replenishment. The patient's rise in serum sodium also correlat es with volume replenishment as well as pain control, which would also diminish the stimulus for SIAD H. Nevertheless, the goal right now should be to ensure that serum sodium does not increase further today in order to avoid osmotic demyelination from rapid increase in serum sodium as the patient has risk factors including serum sodium less than 120 and possible liver disease as evidenced by elevated transaminases. Obtaining a stat BMP. If serum sodium is further increased, will give D5W in order to lower it as our goal for correction over 24 hours should be no more than 8 mEq per liter. 2. Electrolyte abnormalities on presentation. The patient with increased anion gap indicative of an underlying gap acidosis, which with a normal bicarbonate is indicative of a superimposed metabolic a lkalosis. Gap acidosis likely from ketosis as seen with urinalysis showing 1+ ketones and metabolic alkalosis may be due to volume contraction or possibly as compensation for respiratory acidosis. Nev ertheless, this gap acidosis has resolved. Monitor electrolytes. Replenish potassium as needed. 3. Proteinuria/hematuria. May just be a sporadic finding. Will repeat UA and obtain urine protein and creatinine to assess for degree of proteinuria. 4. Low back pain secondary to T11 vertebral body compression deformity. The patient is on ibuprofen p.r.n. and morphine p.r.n. for pain. No contraindications from renal point of view. 5. Hypertension. The patient is on Norvasc 10 mg daily. Continue the same. Currently is normotens ana maria. Seferino Chanel MD cc: [id number] TT: 10/18/2016 19:52:08 Confirmation # [id number] Dictation # [id number] veronica
--- NOTE | 2016-10-20 10:27 | CARD ---
APPROVED REPORT EKG Measurement Heart [id number] MD [id number] <Conclusion> Normal sinus rhythm Normal ECG
--- NOTE | 2016-10-20 14:29 | CARD ---
APPROVED REPORT EKG Measurement Heart [id number] ME [id number] <Conclusion> Sinus tachycardia Otherwise normal ECG
--- NOTE | 2016-10-20 16:43 | CP.PCM.PN ---
<LexaCintia - Last Filed: 10/20/16 16:41> Subjective - Date & Time of Evaluation Date of Evaluation: 10/20/16 Time of Evaluation: 07:50 - Subjective Subjective: Pt seen and examined at bedside this morning. Pt reports lower abdominal pain and bilateral flank pain still but controlled with medicine. Pt also complains bilateral feet pain again. He states the pain is improving, however. He has no other complaints, He is tolerating diet, having BMs, and is ambulating. Objective - Vital Signs/Intake and Output Vital Signs (last 24 hours): Temp Pulse Resp BP Pulse Ox 97.4 F L 82 18 151/89 H 99 10/20/16 07:35 10/20/16 15:30 10/20/16 07:35 10/20/16 07:35 10/20/16 07:35 Intake and Output: 10/20/16 10/20/16 06:59 18:59 Output Total 350 Balance -350 - Medications Medications: Current Medications Albuterol (Ventolin Hfa 90 Mcg/Actuation (8 G)) 1 puff IH RQ4 PRN PRN Reason: Shortness of Breath Amlodipine Besylate (Norvasc) 10 mg PO DAILY [facility] Last Admin: 10/20/16 09:47 Dose: 10 mg Heparin Sodium (Porcine) (Heparin) 5,000 units SC Q8 [facility] Last Admin: 10/20/16 14:47 Dose: 5,000 units Ibuprofen (Motrin Tab) 600 mg PO Q6H PRN PRN Reason: Pain, moderate (4-7) Last Admin: 10/20/16 13:42 Dose: 600 mg Morphine Sulfate (Morphine) 2 mg IVP Q4 PRN PRN Reason: Pain, severe (8-10) Last Admin: 10/20/16 05:22 Dose: 2 mg Ondansetron HCl (Zofran Inj) 4 mg IVP Q6 PRN PRN Reason: Nausea/Vomiting Pantoprazole Sodium (Protonix Inj) 40 mg IVP Q12H [facility] Last Admin: 10/20/16 09:47 Dose: 40 mg - Labs Labs: 10/20/16 07:22 10/20/16 07:22 PT 10.0 SECONDS (9.7-12.2) 10/20/16 07:22 INR 0.9 10/20/16 07:22 APTT 71 SECONDS (21-34) H D 10/20/16 07:22 - Constitutional Appears: Non-toxic, No Acute Distress - Head Exam Head Exam: ATRAUMATIC, NORMAL INSPECTION - Eye Exam Eye Exam: EOMI, Normal appearance, PERRL Pupil Exam: NORMAL ACCOMODATION - ENT Exam ENT Exam: Mucous Membranes Moist - Respiratory Exam Respiratory Exam: Clear to Ausculation Bilateral, NORMAL BREATHING PATTERN. absent: Accessory Muscle Use, Respiratory Distress - Cardiovascular Exam Cardiovascular Exam: REGULAR RHYTHM, +S1, +S2 - GI/Abdominal Exam GI & Abdominal Exam: Soft, Normal Bowel Sounds. absent: Distended, Firm, Guarding, Tenderness - Extremities Exam Extremities Exam: Normal Inspection. absent: Calf Tenderness - Back Exam Back Exam: NORMAL INSPECTION, paraspinal tenderness. absent: CVA tenderness (L) , CVA tenderness (R) - Neurological Exam Neurological Exam: Alert, Awake, CN II-XII Intact, Oriented x3 - Psychiatric Exam Psychiatric exam: Normal Affect, Normal Mood - Skin Skin Exam: Dry, Intact, Normal Color, Warm Assessment and Plan - Assessment and Plan (Free Text) Assessment: Flank pain * Resolving * F/U MRI lumbar with T10-T12 levels, consult IR if needed * No evidence of urinary calculus or urinary tract obstruction, fatty liver, compression deformity of T11 vertebral body [see full report] * Pt had chronic T11 compression deformity since 04/16/16 CT * afebrile w/o leukocytosis * UA positive for protein, ketones, and blood * pain control w/ motrin and morphine Electrolyte Imbalance * Head CT showed scattered non specific white matter changes [see full report] * EKG showed NSR @90bpm no ST changes * replenish with NS@100 * Na 126 * Urine osmo 146 * Nephro Dr. Chanel consulted, help appreciated. Elevated LFT * AST 302, ALT 72 on admission * AST 265, ALT 69 today, improved * T bili trending down * Negative HIV and hepatitis panel * Continue monitoring, likely secondary to fatty liver vs ETOH Diarrhea * not active at this time * hemoccult negative * Hgb and hct stable HTN * BP wnl * Continue home norvasc Hx of asthma * Asymptomatic at this time * continue home Ventolin Hx of ETOH abuse * Head CT showed scattered non specific white matter changes [see full report] * Educated on importance of cessation * NIKKI protocol * Ativan 2mg Q4 prn withdrawals Hx of tobacco use * educated on need for cessation * pt refused nicoderm patch ppx * protonix 40mg IV Q12H * Zofran 4mg Q4H * SCD's <Sohan Richards M - Last Filed: 10/20/16 17:20> Objective - Vital Signs/Intake and Output Vital Signs (last 24 hours): Temp Pulse Resp BP Pulse Ox 97.7 F 110 H 20 132/87 100 10/20/16 16:46 10/20/16 16:46 10/20/16 16:46 10/20/16 16:46 10/20/16 16:46 Intake and Output: 10/20/16 10/20/16 06:59 18:59 Output Total 350 Balance -350 - Medications Medications: Current Medications Albuterol (Ventolin Hfa 90 Mcg/Actuation (8 G)) 1 puff IH RQ4 PRN PRN Reason: Shortness of Breath Amlodipine Besylate (Norvasc) 10 mg PO DAILY [facility] Last Admin: 10/20/16 09:47 Dose: 10 mg Heparin Sodium (Porcine) (Heparin) 5,000 units SC Q8 [facility] Last Admin: 10/20/16 14:47 Dose: 5,000 units Ibuprofen (Motrin Tab) 600 mg PO Q6H PRN PRN Reason: Pain, moderate (4-7) Last Admin: 10/20/16 13:42 Dose: 600 mg Morphine Sulfate (Morphine) 2 mg IVP Q4 PRN PRN Reason: Pain, severe (8-10) Last Admin: 10/20/16 05:22 Dose: 2 mg Ondansetron HCl (Zofran Inj) 4 mg IVP Q6 PRN PRN Reason: Nausea/Vomiting Pantoprazole Sodium (Protonix Inj) 40 mg IVP Q12H [facility] Last Admin: 10/20/16 09:47 Dose: 40 mg - Labs Labs: 10/20/16 07:22 10/20/16 07:22 PT 10.0 SECONDS (9.7-12.2) 10/20/16 07:22 INR 0.9 10/20/16 07:22 APTT 71 SECONDS (21-34) H D 10/20/16 07:22 Attending/Attestation - Attestation I have personally seen and examined this patient.: Yes I have fully participated in the care of the patient.: Yes I have reviewed all pertinent clinical information, including history, physical exam and plan: Yes Notes (Text): 10/20/16 17:19 Patient was seen and examined at bedside with the resident today. Doesn't complain of back pain at this time. Patient is ambulating. Follow-up remote of the MRI of the lumbar spine. Hyponatremia noted. Management as per nephrology. Discharge planning after the result of the MRI report is available. I discussed the plan of care with the resident and agree with the above history and physical and assessment/plan by the resident
[2016-10-20 16:47] VITALS: RESP 20
--- NOTE | 2016-10-20 18:00 | MRI ---
PROCEDURE: MR LUMBAR SPINE WITHOUT CONTRAST HISTORY: T11 compression fracture COMPARISON: Comparison is made to the previous CT study dated 04/16/2016 TECHNIQUE: Multiecho multiplanar sequences were performed through the lumbar spine without the use of intravenous contrast. FINDINGS: Again seen is moderate compression deformity of T11 vertebral body. There is severe narrowing of the intervertebral disc is space and almost complete fusion of the T10-T11. No evidence of bone marrow edema to suggest acute pathology. No evidence of destructive bony lesion. No evidence of spinal or neural foraminal narrowing at T11 level. Normal lumbar lordosis. Vertebral body heights are preserved. Marrow signal unremarkable. Conus medullaris unremarkable at the level of T12-L1 Paraspinal soft tissues are unremarkable. T12-L1: No disc herniation, spinal canal stenosis or neural foraminal narrowing. L1-2: No disc herniation, spinal canal stenosis or neural foraminal narrowing. L2-3: No disc herniation, spinal canal stenosis or neural foraminal narrowing. L3-4: No disc herniation, spinal canal stenosis or neural foraminal narrowing. L4-5: No disc herniation, spinal canal stenosis or neural foraminal narrowing. L5-S1: No disc herniation, spinal canal stenosis or neural foraminal narrowing. OTHER FINDINGS: None. IMPRESSION: Moderate compression deformity of T11 likely old without evidence of bone marrow edema or destructive bony lesion. Severe narrowing of the T10-T11 disc space. Findings have not significantly change comparing to the previous CT dated 04/16/2016. No evidence of acute pathology at the lumbar spine. No evidence of spinal or neural foraminal narrowing.
--- NOTE | 2016-10-20 23:42 | CP.PCM.PN ---
Subjective - Date & Time of Evaluation Date of Evaluation: 10/20/16 Time of Evaluation: 18:00 - Subjective Subjective: Patient reports feeling well, awaiting result of MRI of spine done today; Objective - Vital Signs/Intake and Output Vital Signs (last 24 hours): Temp Pulse Resp BP Pulse Ox 97.7 F 110 H 20 132/87 100 10/20/16 16:46 10/20/16 16:46 10/20/16 16:46 10/20/16 16:46 10/20/16 16:46 - Medications Medications: Current Medications Albuterol (Ventolin Hfa 90 Mcg/Actuation (8 G)) 1 puff IH RQ4 PRN PRN Reason: Shortness of Breath Amlodipine Besylate (Norvasc) 10 mg PO DAILY [facility] Last Admin: 10/20/16 09:47 Dose: 10 mg Heparin Sodium (Porcine) (Heparin) 5,000 units SC Q8 [facility] Last Admin: 10/20/16 21:35 Dose: 5,000 units Ibuprofen (Motrin Tab) 600 mg PO Q6H PRN PRN Reason: Pain, moderate (4-7) Last Admin: 10/20/16 13:42 Dose: 600 mg Morphine Sulfate (Morphine) 2 mg IVP Q4 PRN PRN Reason: Pain, severe (8-10) Last Admin: 10/20/16 05:22 Dose: 2 mg Ondansetron HCl (Zofran Inj) 4 mg IVP Q6 PRN PRN Reason: Nausea/Vomiting Pantoprazole Sodium (Protonix Inj) 40 mg IVP Q12H [facility] Last Admin: 10/20/16 21:36 Dose: 40 mg - Labs Labs: 10/20/16 07:22 10/20/16 07:22 PT 10.0 SECONDS (9.7-12.2) 10/20/16 07:22 INR 0.9 10/20/16 07:22 APTT 71 SECONDS (21-34) H D 10/20/16 07:22 - Constitutional Appears: Well, No Acute Distress - Head Exam Head Exam: NORMAL INSPECTION - Eye Exam Eye Exam: Normal appearance. absent: Scleral icterus - ENT Exam ENT Exam: Mucous Membranes Moist - Respiratory Exam Respiratory Exam: Clear to Ausculation Bilateral, NORMAL BREATHING PATTERN - Cardiovascular Exam Cardiovascular Exam: REGULAR RHYTHM, +S1, +S2 - GI/Abdominal Exam GI & Abdominal Exam: Soft. absent: Distended - Extremities Exam Additional comments: no leg edema; - Neurological Exam Neurological Exam: Alert, Awake - Psychiatric Exam Psychiatric exam: Normal Affect, Normal Mood - Skin Skin Exam: Warm. absent: Cyanosis Assessment and Plan (1) Acute hyponatremia Assessment & Plan: Initially due to volume depletion and inadequate solute intake; overall improved ; urine osm from today is relatively low (although should ideally be under 100 in a state of hyponatremia) and so serum Na should increase further as long as patient is fluid restricted (to < 1500 cc/day); Status: Acute (2) HTN (hypertension), benign Assessment & Plan: Controlled, continue norvasc 10 mg daily; Status: Acute (3) Back pain Assessment & Plan: On morphine and ibuprofen prn, no contraindication from renal perspective; Status: Acute (4) Proteinuria Assessment & Plan: ~1g per urine protein/creat ratio; etiology unclear; sending [facility] for further evaluation; Status: Acute
[2016-10-21 07:36] LABS: BASO % 0.8 % (0.0-2.0); EOS # 0.4 K/uL (0.0-0.7); EOS % 7.4 % (0.0-4.0); HEMATOCRIT 35.7 % (35.0-51.0); LYMPH # 1.5 K/uL (1.0-4.3); MEAN CORPUSCULAR HEMOGLOBIN 34.7 pg (27.0-31.0); MEAN CORPUSCULAR HGB CONC 34.3 g/dL (33.0-37.0); MEAN PLATELET VOLUME 8.7 fL (7.2-11.7); MONO # 0.8 K/uL (0.0-0.8); MONO % 15.2 % (0.0-10.0); NRBC % 0.1 % (0.0-2.0); RED CELL DISTRIBUTION WIDTH 15.2 % (11.5-14.5); WHITE BLOOD COUNT 5.1 K/uL (4.8-10.8)
[2016-10-21 07:43] LABS: CHLORIDE 91 mmol/L (98-107)
[2016-10-21 07:44] LABS: POTASSIUM 3.5 mmol/L (3.6-5.2); SODIUM 127 mmol/L (132-148)
[2016-10-21 07:46] LABS: ALB/GLOB RATIO 1.2 (1.0-2.1); ALKALINE PHOSPHATASE 82 U/L (38-126); AST/SGOT 159 U/L (17-59); CARBON DIOXIDE 26 mmol/L (22-30); GFR AFRICAN-AMERICAN > 60
[2016-10-21 07:47] LABS: ALT/SGPT 64 U/L (21-72); BLOOD UREA NITROGEN 7 mg/dL (9-20); GLUCOSE,RANDOM 131 mg/dL (75-110)
[2016-10-21] MEDS ORDERED: Potassium Chloride 20 mEq ER Tab PO STA (07:52)
[2016-10-21 08:17] VITALS: BP 121/82; PULSE 101; TEMP 98.1
[2016-10-21 10:24] LABS: CHLORIDE URINE 41 mmol/L (32-290)
--- NOTE | 2016-10-21 17:34 | CP.PCM.DIS ---
<LexaCintia - Last Filed: 10/27/16 15:38> Provider - Provider Date of Admission: 10/17/16 18:15 Attending physician: Harjit Bui MD Primary care physician: none. Patient would like to follow up with Dr. Janell Solomon Consults: Dr. Chanel - Nephrology Time Spent in preparation of Discharge (in minutes): 35 Diagnosis - Discharge Diagnosis (1) Compression fracture Status: Acute Comment: f/u primary care within one week of discharge. Tylenol OTC prn pain (2) Hyponatremia Status: Acute Comment: f/u Dr. Chanel within one week of discharge (3) HTN (hypertension), benign Status: Acute Comment: Norvasc 10 mg PO daily Hospital Course - Lab Results Lab Results: Micro Results 10/17/16 Unknown Urine Urine Culture - Final No Growth (<1,000 CFU/ML) Most Recent Lab Values WBC 5.1 K/uL (4.8-10.8) 10/21/16 07:09 RBC 3.53 Mil/uL (4.40-5.90) L 10/21/16 07:09 Hgb 12.3 g/dL (12.0-18.0) 10/21/16 07:09 Hct 35.7 % (35.0-51.0) 10/21/16 07:09 MCV 101.0 fL (80.0-94.0) H 10/21/16 07:09 MCH 34.7 pg (27.0-31.0) H 10/21/16 07:09 MCHC 34.3 g/dL (33.0-37.0) 10/21/16 07:09 RDW 15.2 % (11.5-14.5) H 10/21/16 07:09 Plt Count 166 K/uL (130-400) 10/21/16 07:09 MPV 8.7 fL (7.2-11.7) 10/21/16 07:09 Neut % (Auto) 46.6 % (50.0-75.0) L 10/21/16 07:09 Lymph % (Auto) 30.0 % (20.0-40.0) 10/21/16 07:09 [place] % (Auto) 15.2 % (0.0-10.0) H 10/21/16 07:09 Eos % (Auto) 7.4 % (0.0-4.0) H 10/21/16 07:09 Baso % (Auto) 0.8 % (0.0-2.0) 10/21/16 07:09 Neut # 2.4 K/uL (1.8-7.0) 10/21/16 07:09 Lymph # 1.5 K/uL (1.0-4.3) 10/21/16 07:09 [place] # 0.8 K/uL (0.0-0.8) 10/21/16 07:09 Eos # 0.4 K/uL (0.0-0.7) 10/21/16 07:09 Baso # 0.0 K/uL (0.0-0.2) 10/21/16 07:09 Differential Comment 10/17/16 16:06 PT 10.0 SECONDS (9.7-12.2) 10/20/16 07:22 INR 0.9 10/20/16 07:22 APTT 71 SECONDS (21-34) H D 10/20/16 07:22 Sodium 127 mmol/L (132-148) L 10/21/16 07:09 Potassium 3.5 mmol/L (3.6-5.2) L 10/21/16 07:09 Chloride 91 mmol/L (98-107) L 10/21/16 07:09 Carbon Dioxide 26 mmol/L (22-30) 10/21/16 07:09 Anion Gap 14 (10-20) 10/21/16 07:09 BUN 7 mg/dL (9-20) L 10/21/16 07:09 Creatinine 0.7 MG/DL (0.8-1.5) L 10/21/16 07:09 Est GFR ( Amer) > 60 10/21/16 07:09 Est GFR (Non-Af Amer) > 60 10/21/16 07:09 Random Glucose 131 mg/dL (75-110) H 10/21/16 07:09 Hemoglobin A1c 5.4 % (4.2-6.5) 10/19/16 07:31 Calcium 9.0 mg/dl (8.6-10.4) 10/21/16 07:09 Total Bilirubin 1.0 mg/dL (0.2-1.3) 10/21/16 07:09 AST 159 U/L (17-59) H D 10/21/16 07:09 ALT 64 U/L (21-72) 10/21/16 07:09 Alkaline Phosphatase 82 U/L (38-126) 10/21/16 07:09 Total Creatine Kinase 66 U/L (55-170) 10/19/16 22:18 CK-MB (Mass) 0.56 ng/mL (0.0-3.38) 10/19/16 22:18 Troponin I, Quant < 0.0120 ng/mL (0.00-0.120) 10/19/16 22:18 Total Protein 7.0 g/dL (6.3-8.3) 10/21/16 07:09 Albumin 3.8 g/dL (3.5-5.0) 10/21/16 07:09 Globulin 3.2 gm/dL (2.2-3.9) 10/21/16 07:09 Albumin/Globulin Ratio 1.2 (1.0-2.1) 10/21/16 07:09 Lipase 143 U/L (23-300) 10/17/16 16:06 Urine Color Yellow (YELLOW) 10/19/16 00:03 Urine Clarity Clear (Clear) 10/19/16 00:03 Urine pH 7.0 (5.0-8.0) 10/19/16 00:03 Ur Specific [place] 1.008 (1.003-1.030) 10/19/16 00:03 Urine Protein 1+ mg/dL (NEGATIVE) H 10/19/16 00:03 Urine Glucose (UA) 1+ mg/dL (Normal) H 10/19/16 00:03 Urine Ketones Negative mg/dL (NEGATIVE) 10/19/16 00:03 Urine Blood Negative (NEGATIVE) 10/19/16 00:03 Urine Nitrate Negative (NEGATIVE) 10/19/16 00:03 Urine Bilirubin Negative (NEGATIVE) 10/19/16 00:03 Urine Urobilinogen Normal mg/dL (0.2-1.0) 10/19/16 00:03 Ur Leukocyte Esterase Neg Kandi/uL (Negative) 10/19/16 00:03 Urine WBC (Auto) < 1 /hpf (0-5) 10/19/16 00:03 Urine RBC (Auto) 1 /hpf (0-3) 10/19/16 00:03 Ur Squamous Epith Cells < 1 /hpf (0-5) 10/17/16 16:06 Urine Osmolality 166 mosm/kg (300-1000) L 10/20/16 11:55 Ur Random Creatinine 37.7 mg/dL 10/20/16 11:31 U Random Total Protein Cancelled 10/20/16 11:31 Ur Random Sodium 39 mmol/L 10/20/16 11:55 Urine Chloride 41 mmol/L (32-290) 10/20/16 11:31 Stool Occult Blood Negative (NEGATIVE) 10/17/16 21:18 Complement C3 87.0 mg/dL (88.0-165.0) L 10/20/16 07:22 Complement C4 25.8 mg/dL (14.0-44.0) 10/20/16 07:22 Hepatitis A IgM Ab Negative (NEGATIVE) 10/18/16 11:23 Hep Bs Antigen Negative (NEGATIVE) 10/18/16 11:23 Hep B Core IgM Ab Negative (NEGATIVE) 10/18/16 11:23 Hepatitis C Antibody Negative (NEGATIVE) 10/18/16 11:23 HIV 1&2 Antibody Screen Negative (NEGATIVE) 10/18/16 11:23 - Hospital Course Hospital Course: On admission: 56 year old male with history of asthma, HTN, kidney stones, and TB presents with complaint of back pain for 5 days, diarrhea, and one episode of vomiting today. He says he had a kidney stone in the past and that this feels similar. He reports that he has had loose stool for a few days which he described as watery and green/black but no gross blood. He has diffuse aches in his feet, shoulders, and back. On previous admission he had similar complaints. He has some lower abdominal pain. He denies any numbness or tingling but has general weakness. Otherwise he denies any chest pain, cough, SOB, palpitations, dizziness, or recent falls. He reports a history of alcohol use and recently bought a bottle of lorin but denies any withdrawal symptoms. During hospital Stay: CT scan showed No evidence of urinary calculus or urinary tract obstruction, fatty liver, compression deformity of T11 vertebral body [ see full report]. MRI revealed old compression fx T11, no acute pathology. Pt had chronic T11 compression deformity since 04/16/16 CT. His pain was controlled with medication. Patient was found to be hyponatremic. Nephrology was consulted. He was given fluids. Head CT was normal. Patient was noted to have elevated liver enzymes which trended down. Hepatits and HIV were negative. This is likely due to alcohol use vs. fatty liver. Patient was counselled to stop drinking alcohol and stop smoking. Patient is stable for discharge home. Patient is to follow up with a primary care doctor of his choice within 1-2 weeks of discharge. He is to follow up in the [facility] at [facility] [place] and apply for [facility] care if he can't find a primary doctor. He is also to follow up with Dr. Chanel ( nephrology) within one week of discharge. He is to take Amlodipine 10mg once by mouth daily to control his blood pressure. Patient is to return to the emergency room if symptoms return. All instructions explained to the patient and he agrees. This is a summary of the hospital stay.Please refer to the EMR for full details. Discharge Exam - Head Exam Head Exam: NORMAL INSPECTION - Eye Exam Eye Exam: EOMI, Normal appearance, PERRL Pupil Exam: NORMAL ACCOMODATION - Respiratory Exam Respiratory Exam: Clear to PA & Lateral, NORMAL BREATHING PATTERN. absent: Accessory Muscle Use, Respiratory Distress - Cardiovascular Exam Cardiovascular Exam: REGULAR RHYTHM, +S1, +S2 - GI/Abdominal Exam GI & Abdominal Exam: Normal Bowel Sounds, Soft. absent: Distended, Firm, Guarding, Tenderness - Extremities Exam Extremities exam: normal inspection - Back Exam Back exam: NORMAL INSPECTION, paraspinal tenderness (mild). absent: CVA tenderness (L), CVA tenderness (R) - Neurological Exam Neurological exam: Alert, CN II-XII Intact, Normal Gait, Oriented x3, Reflexes Normal - Psychiatric Exam Psychiatric exam: Normal Affect, Normal Mood - Skin Skin Exam: Dry, Intact, Normal Color, Warm Discharge Plan - Discharge Medications Prescriptions: amLODIPine [Norvasc] 10 mg PO DAILY #30 - Follow Up Plan Condition: STABLE Disposition: HOME/ ROUTINE Instructions: Amlodipine (By mouth), Heart Healthy Diet (DC), Hyponatremia (DC) , Hypertension (DC) Additional Instructions: Patient is stable for discharge home. Patient is to follow up with a primary care doctor of his choice within 1-2 weeks of discharge. He is to follow up in the [facility] at [facility] [place] and apply for [facility] care if he can't find a primary doctor. He is also to follow up with Dr. Chanel ( nephrology) within one week of discharge. He is to take Amlodipine 10mg once by mouth daily to control his blood pressure. Patient is to return to the emergency room if symptoms return. All instructions explained to the patient and he agrees. Referrals: [facility] at [facility] [Outside] Seferino Chanel MD [Staff Provider] - Mónica Solomon MD [Staff Provider] - <MauriceSohan M - Last Filed: 11/03/16 16:12> Provider - Provider Date of Admission: 10/17/16 18:15 Attending physician: Harjit Bui MD Hospital Course - Lab Results Lab Results: Micro Results 10/17/16 Unknown Urine Urine Culture - Final No Growth (<1,000 CFU/ML) Most Recent Lab Values WBC 5.1 K/uL (4.8-10.8) 10/21/16 07:09 RBC 3.53 Mil/uL (4.40-5.90) L 10/21/16 07:09 Hgb 12.3 g/dL (12.0-18.0) 10/21/16 07:09 Hct 35.7 % (35.0-51.0) 10/21/16 07:09 MCV 101.0 fL (80.0-94.0) H 10/21/16 07:09 MCH 34.7 pg (27.0-31.0) H 10/21/16 07:09 MCHC 34.3 g/dL (33.0-37.0) 10/21/16 07:09 RDW 15.2 % (11.5-14.5) H 10/21/16 07:09 Plt Count 166 K/uL (130-400) 10/21/16 07:09 MPV 8.7 fL (7.2-11.7) 10/21/16 07:09 Neut % (Auto) 46.6 % (50.0-75.0) L 10/21/16 07:09 Lymph % (Auto) 30.0 % (20.0-40.0) 10/21/16 07:09 [place] % (Auto) 15.2 % (0.0-10.0) H 10/21/16 07:09 Eos % (Auto) 7.4 % (0.0-4.0) H 10/21/16 07:09 Baso % (Auto) 0.8 % (0.0-2.0) 10/21/16 07:09 Neut # 2.4 K/uL (1.8-7.0) 10/21/16 07:09 Lymph # 1.5 K/uL (1.0-4.3) 10/21/16 07:09 [place] # 0.8 K/uL (0.0-0.8) 10/21/16 07:09 Eos # 0.4 K/uL (0.0-0.7) 10/21/16 07:09 Baso # 0.0 K/uL (0.0-0.2) 10/21/16 07:09 Differential Comment 10/17/16 16:06 PT 10.0 SECONDS (9.7-12.2) 10/20/16 07:22 INR 0.9 10/20/16 07:22 APTT 71 SECONDS (21-34) H D 10/20/16 07:22 Sodium 127 mmol/L (132-148) L 10/21/16 07:09 Potassium 3.5 mmol/L (3.6-5.2) L 10/21/16 07:09 Chloride 91 mmol/L (98-107) L 10/21/16 07:09 Carbon Dioxide 26 mmol/L (22-30) 10/21/16 07:09 Anion Gap 14 (10-20) 10/21/16 07:09 BUN 7 mg/dL (9-20) L 10/21/16 07:09 Creatinine 0.7 MG/DL (0.8-1.5) L 10/21/16 07:09 Est GFR ( Amer) > 60 10/21/16 07:09 Est GFR (Non-Af Amer) > 60 10/21/16 07:09 Random Glucose 131 mg/dL (75-110) H 10/21/16 07:09 Hemoglobin A1c 5.4 % (4.2-6.5) 10/19/16 07:31 Calcium 9.0 mg/dl (8.6-10.4) 10/21/16 07:09 Total Bilirubin 1.0 mg/dL (0.2-1.3) 10/21/16 07:09 AST 159 U/L (17-59) H D 10/21/16 07:09 ALT 64 U/L (21-72) 10/21/16 07:09 Alkaline Phosphatase 82 U/L (38-126) 10/21/16 07:09 Total Creatine Kinase 66 U/L (55-170) 10/19/16 22:18 CK-MB (Mass) 0.56 ng/mL (0.0-3.38) 10/19/16 22:18 Troponin I, Quant < 0.0120 ng/mL (0.00-0.120) 10/19/16 22:18 Total Protein 7.0 g/dL (6.3-8.3) 10/21/16 07:09 Albumin 3.8 g/dL (3.5-5.0) 10/21/16 07:09 Globulin 3.2 gm/dL (2.2-3.9) 10/21/16 07:09 Albumin/Globulin Ratio 1.2 (1.0-2.1) 10/21/16 07:09 Lipase 143 U/L (23-300) 10/17/16 16:06 Urine Color Yellow (YELLOW) 10/19/16 00:03 Urine Clarity Clear (Clear) 10/19/16 00:03 Urine pH 7.0 (5.0-8.0) 10/19/16 00:03 Ur Specific [place] 1.008 (1.003-1.030) 10/19/16 00:03 Urine Protein 1+ mg/dL (NEGATIVE) H 10/19/16 00:03 Urine Glucose (UA) 1+ mg/dL (Normal) H 10/19/16 00:03 Urine Ketones Negative mg/dL (NEGATIVE) 10/19/16 00:03 Urine Blood Negative (NEGATIVE) 10/19/16 00:03 Urine Nitrate Negative (NEGATIVE) 10/19/16 00:03 Urine Bilirubin Negative (NEGATIVE) 10/19/16 00:03 Urine Urobilinogen Normal mg/dL (0.2-1.0) 10/19/16 00:03 Ur Leukocyte Esterase Neg Kandi/uL (Negative) 10/19/16 00:03 Urine WBC (Auto) < 1 /hpf (0-5) 10/19/16 00:03 Urine RBC (Auto) 1 /hpf (0-3) 10/19/16 00:03 Ur Squamous Epith Cells < 1 /hpf (0-5) 10/17/16 16:06 Urine Osmolality 166 mosm/kg (300-1000) L 10/20/16 11:55 Ur Random Creatinine 37.7 mg/dL 10/20/16 11:31 U Random Total Protein Cancelled 10/20/16 11:31 Ur Random Sodium 39 mmol/L 10/20/16 11:55 Urine Chloride 41 mmol/L (32-290) 10/20/16 11:31 Stool Occult Blood Negative (NEGATIVE) 10/17/16 21:18 CARL 6 Profile Positive (NEGATIVE) H 10/20/16 07:22 CARL Titer 1:80 H 10/20/16 07:22 CARL Pattern Nucleolar H 10/20/16 07:22 Complement C3 87.0 mg/dL (88.0-165.0) L 10/20/16 07:22 Complement C4 25.8 mg/dL (14.0-44.0) 10/20/16 07:22 Hepatitis A IgM Ab Negative (NEGATIVE) 10/18/16 11:23 Hep Bs Antigen Negative (NEGATIVE) 10/18/16 11:23 Hep B Core IgM Ab Negative (NEGATIVE) 10/18/16 11:23 Hepatitis C Antibody Negative (NEGATIVE) 10/18/16 11:23 HIV 1&2 Antibody Screen Negative (NEGATIVE) 10/18/16 11:23 Attending/Attestation - Attestation I have personally seen and examined this patient.: Yes I have fully participated in the care of the patient.: Yes I have reviewed all pertinent clinical information, including history, physical exam and plan: Yes Notes (Text): 11/03/16 16:11 Patient was seen and examined at bedside with the resident Patient is ambulating in the hallway without any pain This a late computer entry. I agree with the above discharge note by the resident.
--- NOTE | 2016-10-22 18:32 | CARD ---
APPROVED REPORT EKG Measurement Heart [id number] <Conclusion> Normal sinus rhythm Normal ECG
[2016-10-30 14:50] VITALS: O2SAT 99
== END 2016-10-21 14:41 | disposition home or self-care (01) | DRG 300 ==
LOC: C.ER 14:33 → C.9E 18:15 → C.3T 19:59 → C.9E 21:01 → C.6T 21:25
PROVIDERS: ADMIT Internal Medicine; ATTEND Internal Medicine
DX: E22.2 Syndrome of inappropriate secretion of antidiuretic hormone (principal); E87.8 Other disorders of electrolyte and fluid balance, not elsewhere classified; E87.4 Mixed disorder of acid-base balance; I10 Essential (primary) hypertension; F17.210 Nicotine dependence, cigarettes, uncomplicated; R19.7 Diarrhea, unspecified; R31.9 Hematuria, unspecified; J45.909 Unspecified asthma, uncomplicated; M54.5 Low back pain; F10.10 Alcohol abuse, uncomplicated; Z87.442 Personal history of urinary calculi; Z86.11 Personal history of tuberculosis; Z80.51 Family history of malignant neoplasm of kidney; Z82.49 Family history of ischemic heart disease and other diseases of the circulatory system

== ENCOUNTER 2016-12-08 22:09 | Observation (INO) | payer SELFPAY ==
[2016-12-08 22:28] VITALS: O2SAT 100
[2016-12-08 23:09] LABS: BASO % 0.4 % (0.0-2.0); EOS % 0.9 % (0.0-4.0); HEMOGLOBIN 13.6 g/dL (12.0-18.0); LYMPH # 1.6 K/uL (1.0-4.3); MEAN CORPUSCULAR HEMOGLOBIN 33.8 pg (27.0-31.0); MEAN CORPUSCULAR HGB CONC 34.3 g/dL (33.0-37.0); MEAN PLATELET VOLUME 8.4 fL (7.2-11.7); MONO # 0.7 K/uL (0.0-0.8); MONO % 11.4 % (0.0-10.0); NEUT # 3.4 K/uL (1.8-7.0); NEUT % 59.3 % (50.0-75.0); NRBC % 0.1 % (0.0-2.0); RBC 4.02 Mil/uL (4.40-5.90); RED CELL DISTRIBUTION WIDTH 14.2 % (11.5-14.5); WHITE BLOOD COUNT 5.7 K/uL (4.8-10.8)
[2016-12-08 23:13] LABS: MEAN CELL VOLUME 98.7 fL (80.0-94.0)
[2016-12-08 23:17] LABS: ALBUMIN 4.2 g/dL (3.5-5.0)
[2016-12-08 23:19] LABS: GFR AFRICAN-AMERICAN > 60; GFR NON-AFRICAN AMERICAN > 60
[2016-12-08 23:20] LABS: ALB/GLOB RATIO 1.1 (1.0-2.1); ALT/SGPT 26 U/L (21-72); AST/SGOT 72 U/L (17-59); BLOOD UREA NITROGEN 10 mg/dL (9-20); CALCIUM 9.8 mg/dl (8.6-10.4); LIPASE 195 U/L (23-300)
[2016-12-08] MEDS ORDERED: Sodium Chloride 0.9% 1,000 ML IV ONE (23:27)
--- NOTE | 2016-12-08 23:27 | C.PDOC ---
History Of Present Illness The patient presents to the ED for evaluation of abdominal pain and vomiting which began earlier today. He indicates his pain is located around his mid- epigastric region. Patient states he is trying to detox from alcohol and admits his last drink was this morning. He denies fever, chills, back pain. Time Seen by Provider: 12/08/16 23:25 Chief Complaint (Nursing): Abdominal Pain History Per: Patient History/Exam Limitations: no limitations Onset/Duration Of Symptoms: Hrs Current Symptoms Are (Timing): Still Present Severity: Mild Pain Scale Rating Of: 3 Location Of Pain/Discomfort: Epigastric (mid ) Radiation Of Pain To:: None Quality Of Discomfort: "Pain" Associated Symptoms: Vomiting. denies: Fever, Chills, Back Pain Exacerbating Factors: None Alleviating Factors: None Last Bowel Movement: Today Recent travel outside of the [place]: No Additional History Per: Patient Past Medical History Reviewed: Historical Data, Nursing Documentation, Vital Signs Vital Signs: Last Vital Signs Temp 97.4 F L 12/08/16 22:26 Pulse 100 H 12/08/16 22:26 Resp 16 12/08/16 22:26 BP 153/93 H 12/08/16 22:26 Pulse Ox 100 12/09/16 03:14 - Medical History PMH: Arthritis, Asthma, Back Problems, HTN, Kidney Stones, Chronic Kidney Disease, Rheumatoid Arthritis Surgical History: Back Surgery Family History: States: Unknown Family Hx - Social History Hx Tobacco Use: Yes Hx Alcohol Use: Yes Hx Substance Use: No - Immunization History Hx Tetanus Toxoid Vaccination: No Hx Influenza Vaccination: Yes (04/11/2016) Hx Pneumococcal Vaccination: Yes (04/11/2016) Review Of Systems Constitutional: Negative for: Fever, Chills Cardiovascular: Negative for: Chest Pain Respiratory: Negative for: Cough, Shortness of Breath Gastrointestinal: Positive for: Vomiting, Abdominal Pain (mid-epigastric ). Negative for: Diarrhea, Constipation Genitourinary: Negative for: Dysuria, Hematuria Musculoskeletal: Negative for: Back Pain Skin: Negative for: Rash, Lesions, Jaundice, Bruising Neurological: Negative for: Weakness, Numbness Psych: Positive for: Withdrawal (alcohol ) Physical Exam - Physical Exam Appears: Non-toxic, No Acute Distress Skin: Warm, Dry Head: Normacephalic Eye(s): bilateral: Normal Inspection Oral Mucosa: Dry Neck: Supple Chest: Symmetrical, No Deformity, No Tenderness Cardiovascular: Rhythm Regular, No Murmur Respiratory: No Rales, No Rhonchi, No Wheezing Gastrointestinal/Abdominal: Soft, Tenderness (to mid-epigastric region on palpation ), No Guarding, No Rebound Back: No Vertebral Tenderness Extremity: Normal ROM, Capillary Refill (less than 2 seconds ) Neurological/Psych: Oriented x3 Gait: Steady ED Course And Treatment - Laboratory Results Result Diagrams: 12/08/16 23:06 12/08/16 23:06 O2 Sat by Pulse Oximetry: 100 (on RA) Pulse Ox Interpretation: Normal Progress Note: labs ordered and reviewed. Patient received Pepcid IV, Toradol IV , Zofran IV, and IV Fluids. Reevaluation Time: 05:24 Reassessment Condition: Improved Disposition Counseled Patient/Family Regarding: Studies Performed, Diagnosis, Need For Followup - Disposition Disposition: HOME/ ROUTINE Disposition Time: 23:27 Condition: FAIR - Clinical Impression Clinical Impression: Chronic back pain, Alcohol abuse - Scribe Statement The provider has reviewed the documentation as recorded by the Scribe (Macie Solomon) Provider Attestation: All medical record entries made by the Scribe were at my direction and personally dictated by me. I have reviewed the chart and agree that the record accurately reflects my personal performance of the history, physical exam, medical decision making, and the department course for this patient. I have also personally directed, reviewed, and agree with the discharge instructions and disposition.
[2016-12-08] MEDS ORDERED: Sodium Chloride 0.9% 1,000 ML ONE (23:35)
[2016-12-08 23:49] LABS: LIPASE 201 U/L (23-300)
[2016-12-09 01:44] LABS: URINE BILIRUBIN NEGATIVE (NEGATIVE); URINE BLOOD NEGATIVE (NEGATIVE); URINE CLARITY Clear (Clear); URINE COLOR Straw (YELLOW); URINE GLUCOSE (UA) NORMAL (Normal); URINE LEUKOCYTE ESTERASE NEG Leu/uL (Negative); URINE NITRATE NEGATIVE (NEGATIVE); URINE PROTEIN NEGATIVE (NEGATIVE); URINE UROBILINOGEN NORMAL mg/dL (0.2-1.0)
[2016-12-09 05:35] VITALS: BP 130/80; PULSE 70; RESP 14; TEMP 97.5
== END 2016-12-09 05:31 | disposition home or self-care (01) ==
LOC: C.ER 22:09 → C.9OBSV 12-09 03:13
PROVIDERS: ADMIT Emergency Medicine; ATTEND Emergency Medicine
DX: G89.29 Other chronic pain (principal); F10.10 Alcohol abuse, uncomplicated; Z87.891 Personal history of nicotine dependence; Z87.442 Personal history of urinary calculi
CPT/HCPCS: 80053; 83690; 85025; G0480

== ENCOUNTER 2017-03-05 13:20 | Inpatient (IN) | payer OTHER, SELFPAY ==
[2017-03-05 14:07] LABS: BASO % 0.9 % (0.0-2.0); EOS % 0.5 % (0.0-4.0); HEMATOCRIT 39.2 % (35.0-51.0); LYMPH # 0.6 K/uL (1.0-4.3); MEAN CORPUSCULAR HEMOGLOBIN 35.4 pg (27.0-31.0); MEAN CORPUSCULAR HGB CONC 35.1 g/dL (33.0-37.0); MEAN PLATELET VOLUME 7.7 fL (7.2-11.7); MONO # 0.4 K/uL (0.0-0.8); MONO % 8.8 % (0.0-10.0); RED CELL DISTRIBUTION WIDTH 14.3 % (11.5-14.5); WHITE BLOOD COUNT 4.8 K/uL (4.8-10.8)
[2017-03-05 14:15] LABS: CHLORIDE 91 mmol/L (98-107); INR 0.9; MEAN CELL VOLUME 100.8 fL (80.0-94.0)
[2017-03-05 14:16] LABS: POTASSIUM 3.9 mmol/L (3.6-5.2); SODIUM 126 mmol/L (132-148)
[2017-03-05 14:18] LABS: AST/SGOT 185 U/L (17-59); CARBON DIOXIDE 24 mmol/L (22-30); GFR AFRICAN-AMERICAN > 60; TOTAL PROTEIN 8.6 g/dL (6.3-8.3)
[2017-03-05 14:19] LABS: ALKALINE PHOSPHATASE 77 U/L (38-126); ALT/SGPT 61 U/L (21-72); BLOOD UREA NITROGEN 5 mg/dL (9-20); CALCIUM 9.5 mg/dl (8.6-10.4); GLUCOSE,RANDOM 134 mg/dL (75-110)
[2017-03-05 14:20] LABS: ALCOHOL SERUM < 10 mg/dl (0-10)
--- NOTE | 2017-03-05 15:01 | C.PDOC ---
History Of Present Illness 56 yo male w/PMHx of alcohol abuse, hx of kidney stone, BIBA come in for evaluation of periumbilical pain intermittent for past 3 days. Pt also c/o diffuse lower back pain. Patient appears slightly confused to time. Last alcohol intake few days ago. Pt poor historian. AT the time of evaluation, awake , comfortable, not in any apparent distress. Time Seen by Provider: 03/05/17 13:34 Chief Complaint (Nursing): Abdominal Pain History Per: Patient History/Exam Limitations: no limitations Onset/Duration Of Symptoms: Days, Intermittent Episodes Current Symptoms Are (Timing): Still Present Location Of Pain/Discomfort: Epigastric Radiation Of Pain To:: None, Back Quality Of Discomfort: "Pain" Associated Symptoms: Back Pain. denies: Fever, Chills, Nausea, Vomiting, Diarrhea, Urinary Symptoms Recent travel outside of the [place]: No Past Medical History Reviewed: Historical Data, Nursing Documentation, Vital Signs Vital Signs: Last Vital Signs Temp 97.7 F 03/05/17 13:47 Pulse 123 H 03/05/17 13:47 Resp 20 03/05/17 13:47 BP 145/97 H 03/05/17 13:47 Pulse Ox 99 03/05/17 17:44 - Medical History PMH: Arthritis, Asthma, Back Problems, HTN, Kidney Stones, Chronic Kidney Disease, Rheumatoid Arthritis Surgical History: Back Surgery Family History: States: Unknown Family Hx - Social History Hx Tobacco Use: Yes Hx Alcohol Use: Yes Hx Substance Use: No - Immunization History Hx Tetanus Toxoid Vaccination: No Hx Influenza Vaccination: Yes (04/11/2016) Hx Pneumococcal Vaccination: Yes (04/11/2016) Review Of Systems Except As Marked, All Systems Reviewed And Found Negative. Constitutional: Negative for: Fever, Chills Cardiovascular: Negative for: Chest Pain Respiratory: Negative for: Cough, Shortness of Breath, Wheezing Gastrointestinal: Positive for: Abdominal Pain. Negative for: Nausea, Vomiting , Diarrhea Genitourinary: Negative for: Dysuria Musculoskeletal: Positive for: Back Pain Skin: Negative for: Rash Neurological: Positive for: Confusion. Negative for: Weakness, Numbness, Headache, Dizziness Physical Exam - Physical Exam Appears: Well, Non-toxic, No Acute Distress Skin: Normal Color, Warm, Dry, No Rash, No Ecchymosis Head: Normacephalic Eye(s): bilateral: PERRL Nose: No Discharge Oral Mucosa: Moist, No Drooling Tongue: Normal Appearing Lips: Normal Appearing Throat: No Drooling Neck: Supple Cardiovascular: Rhythm Regular Respiratory: No Decreased Breath Sounds, No Accessory Muscle Use, No Stridor, No Wheezing Gastrointestinal/Abdominal: Soft, Tenderness (mild epigastric tenderness), No Distention, No Guarding, No Rebound Back: No CVA Tenderness, No Vertebral Tenderness, Paraspinal Tenderness ( diffuse lumbar, no midline tenderness, no skin changes.) Extremity: Normal ROM, No Pedal Edema, No Deformity Neurological/Psych: No Oriented x3 (confused to time), Normal Motor, Normal Sensation, Normal Reflexes ED Course And Treatment - Laboratory Results Result Diagrams: 03/05/17 14:04 03/05/17 14:04 Lab Interpretation: Abnormal ECG: Interpreted By Me, Viewed By Me ECG Rhythm: Sinus Tachycardia Interpretation Of ECG: Sinus tachy@118/min, NAD, no acute T wave or ST-T changes. O2 Sat by Pulse Oximetry: 99 Pulse Ox Interpretation: Normal - Other Rad CXR X-Ray: Read By Radiologist Interpretation: IMPRESSION: Mild venous congestion. Right hilar prominence. Biapical pleural thickening with upper lobe granulomatous changes. Small nodular density at the left costophrenic angle may represent confluence of shadows with ribs and vessels. Two small nodular densities in the lateral aspect of the right midlung zone which may represent nodules and or granulomas. Correlation with chest CT may be helpful if clinically indicated. - CT Scan/US CT head Other Rad Studies (CT/US): Radiology Report Reviewed CT/US Interpretation: IMPRESSION: Generalized atrophy. Chronic appearing bilateral basal ganglia lacunar infarcts. Nonspecific white matter changes. CT abd/pelvis Other Rad Studies (CT/US): Radiology Report Reviewed CT/US Interpretation: IMPRESSION: 1. Potential segmental acute enteritis involving the proximal small bowel. Lack oral contrast limits evaluation the true thickness of the suspected segment of small bowel. No ascites or mesenteric reaction. No free intraperitoneal gas or abscess. 2. Marked diffuse fatty infiltration liver is chronic or recurrent. 3. Enlarged prostate gland. 4. Stable right middle lobe nodule. Follow-up chest is advised in a year distended demonstrate stability. Lung rads 2. 5. Nodular fibrosis or atelectasis again noted at the left lower lobe base. Progress Note: On re-evaluation, pt remained unchanged, still c/o abdominal pain. Blood work review and appears abnormal: hyponatremia, hyperglycemia, high amylase. Pt has clinical findings c/w epigastric pain, vomiting, hyponatremia, AMS. Case discussed with hospitalist and admission to s/ o recommend. Disposition - Disposition Disposition Time: 16:10 Condition: STABLE Forms: [facility] (Croatian) - Clinical Impression Clinical Impression: Hyponatremia, Confusion, Alcohol abuse
[2017-03-05] MEDS ORDERED: Sodium Chloride 0.9% 1,000 ML IV ONE (15:02)
--- NOTE | 2017-03-05 15:15 | RAD ---
PROCEDURE: CHEST RADIOGRAPH, 1 VIEW HISTORY: Abdominal pain COMPARISON: 05/26/2016 FINDINGS: LUNGS: Mild venous congestion. Right hilar prominence. Biapical pleural thickening with upper lobe granulomatous changes. Small nodular density at the left costophrenic angle may represent confluence of shadows with ribs and vessels. Two small nodular densities in the lateral aspect of the right midlung zone which may represent nodules and or granulomas. Correlation with chest CT may be helpful if clinically indicated. PLEURA: No pneumothorax or pleural fluid seen. CARDIOVASCULAR: Tortuous aorta. OSSEOUS STRUCTURES: No significant abnormalities. VISUALIZED UPPER ABDOMEN: Normal. OTHER FINDINGS: None. IMPRESSION: Mild venous congestion. Right hilar prominence. Biapical pleural thickening with upper lobe granulomatous changes. Small nodular density at the left costophrenic angle may represent confluence of shadows with ribs and vessels. Two small nodular densities in the lateral aspect of the right midlung zone which may represent nodules and or granulomas. Correlation with chest CT may be helpful if clinically indicated.
[2017-03-05 15:19] LABS: RBC URINE 3 /hpf (0-3); URINE BILIRUBIN NEGATIVE (NEGATIVE); URINE BLOOD NEGATIVE (NEGATIVE); URINE COLOR Yellow (YELLOW); URINE GLUCOSE (UA) 1+ mg/dL (Normal); URINE KETONE NEGATIVE (NEGATIVE); URINE LEUKOCYTE ESTERASE NEG Leu/uL (Negative); URINE PROTEIN 2+ mg/dL (NEGATIVE); URINE UROBILINOGEN NORMAL mg/dL (0.2-1.0); WBC URINE 2 /hpf (0-5)
[2017-03-05] MEDS ORDERED: Sodium Chloride 0.9% 1,000 ML ONE (15:40)
[2017-03-05] MEDS ORDERED: Iodixanol 320 MG/ML 100 ML BOTTLE IV ONE (16:12)
--- NOTE | 2017-03-05 16:36 | CT ---
PROCEDURE: CT HEAD WITHOUT CONTRAST. HISTORY: AMS COMPARISON: Noncontrast head CT performed 10/17/16 TECHNIQUE: Axial computed tomography images were obtained through the head/brain without intravenous contrast. Radiation dose: Total exam DLP = 814.13 mGy-cm. This CT exam was performed using one or more of the following dose reduction techniques: Automated exposure control, adjustment of the mA and/or kV according to patient size, and/or use of iterative reconstruction technique. FINDINGS: HEMORRHAGE: No intracranial hemorrhage. BRAIN: Diffuse atrophy with prominence of the ventricles and sulci noted. No mass effect or edema. Scattered bilateral probable chronic basal ganglia lacunar infarcts. Scattered periventricular and subcortical white matter hypodensities, which are nonspecific, but often seen with chronic microvascular ischemic disease. Please note that MRI with diffusion imaging is more sensitive in the detection of acute ischemic event. VENTRICLES: Unremarkable. CALVARIUM: Unremarkable. PARANASAL SINUSES: Unremarkable as visualized. No significant inflammatory changes. MASTOID AIR CELLS: Unremarkable as visualized. No inflammatory changes. OTHER FINDINGS: None. IMPRESSION: Generalized atrophy. Chronic appearing bilateral basal ganglia lacunar infarcts. Nonspecific white matter changes.
--- NOTE | 2017-03-05 16:50 | CT ---
PROCEDURE: CT Abdomen and Pelvis with contrast HISTORY: abd pain COMPARISON: Unenhanced and pelvis CT examination of 10/17/2016. TECHNIQUE: Following the intravenous administration of iodinated contrast material, a CT examination of the abdomen and pelvis performed from the domes of the diaphragms to the symphysis pubis with reformatted datasets provided not only axial but also sagittal and coronal planes. Oral contrast was not administered as per referring physician request. Contrast dose: Visipaque 320, 100 cc Radiation dose: Total exam DLP = 284.16 mGy-cm. This CT exam was performed using one or more of the following dose reduction techniques: Automated exposure control, adjustment of the mA and/or kV according to patient size, and/or use of iterative reconstruction technique. FINDINGS: LOWER THORAX: A 10 mm nodule or pleural-based scar is appreciated at the left lower lobe posteriorly once again which has not changed in overall size dating back to prior chest CT 04/12/2016. Additional smaller nodules also noncalcified measuring 5mm at the right middle lobe and image 4 series 3. Trace bilateral basilar dependent atelectasis appreciate bilaterally. LIVER: Diffuse fatty infiltration of the liver is again appreciated without focal mass. GALLBLADDER AND BILE DUCTS: Unremarkable. PANCREAS: Unremarkable. No gross lesion or ductal dilatation. SPLEEN: Unremarkable. ADRENALS: Unremarkable. No mass. KIDNEYS AND URETERS: Unremarkable. No hydronephrosis. No solid mass. VASCULATURE: Unremarkable. No aortic aneurysm. BOWEL: There is prominent fecal loading throughout the ascending and proximal to mid transverse colon as well as rectosigmoid segment. No definite bowel obstruction identified this time. Mural thickening of proximal left sided small-bowel loops is not excluded and although there is no mesenteric reaction, segmental enteritis is not completely excluded. APPENDIX: Normal appendix. PERITONEUM: Unremarkable. No free fluid. No free air. LYMPH NODES: Unremarkable. No enlarged lymph nodes. BLADDER: Unremarkable. REPRODUCTIVE: Enlarged prostate gland noted. BONES: Stable wedge chronic compression fracture T11 again evident. OTHER FINDINGS: None. IMPRESSION: 1. Potential segmental acute enteritis involving the proximal small bowel. Lack oral contrast limits evaluation the true thickness of the suspected segment of small bowel. No ascites or mesenteric reaction. No free intraperitoneal gas or abscess. 2. Marked diffuse fatty infiltration liver is chronic or recurrent. 3. Enlarged prostate gland. 4. Stable right middle lobe nodule. Follow-up chest is advised in a year distended demonstrate stability. Lung rads 2. 5. Nodular fibrosis or atelectasis again noted at the left lower lobe base.
[2017-03-05] MEDS ORDERED: Morphine 4 MG/ML VIAL ONE (18:32)
--- NOTE | 2017-03-05 20:47 | CP.PCM.HP ---
History of Present Illness - History of Present Illness History of Present Illness: 56 yo M with a PMHx of HTN, hx of kidney stones, hx of tuberculosis, compression deformity of T11 vertebral body, presented to the ED c/o of worsening intermittent periumbilical abdominal pain rated 10/10 that started 5 days ago. He describes it as a stabbing quality with radiation to his lumbar back. He took miralax and advil without relief. Associated symptoms include loss of appetite for past 2 weeks, 1 episode of non-bloody diarrhea yesterday, 1 episode of non-bloody non-bilious emesis today, and headache. He also complains of chronic body aches in his legs, feet, and shoulders ongoing for the past 2 years. He denied all other prompts on review of systems. 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 absent: Chills, Fever, Night Sweats - EENT Eyes: absent: Change in Vision Ears: absent: Ear Pain Nose/Mouth/Throat: absent: Nasal Discharge - Cardiovascular Cardiovascular: absent: Chest Pain, Diaphoresis, Irregular Heart Rhythm, Leg Edema - Respiratory Respiratory: absent: Cough, Dyspnea, Dyspnea on Exertion, Wheezing - Gastrointestinal Gastrointestinal: Abdominal Pain, Diarrhea, Nausea, Vomiting. absent: Constipation, Hematemesis, Hematochezia - Genitourinary Genitourinary: absent: Dysuria - Musculoskeletal Musculoskeletal: Back Pain, Muscle Cramps, Myalgias - Integumentary Integumentary: absent: Dry Skin, Lesions - Neurological Neurological: absent: Confusion, Convulsions, Disequilibrium, Dizziness Past Patient History - Infectious Disease Hx of Infectious Diseases: None - Tetanus Immunizations Tetanus Immunization: Unknown - Past Medical History & Family History Past Medical History?: Yes - Past Social History Smoking Status: Light Smoker < 10 Cigarettes Daily - CARDIAC Hx Hypertension: Yes - PULMONARY Hx Asthma: Yes - NEUROLOGICAL Hx Neurological Disorder: No - HEENT Hx HEENT Problems: No - RENAL Hx Chronic Kidney Disease: Yes Hx Kidney Stones: Yes - ENDOCRINE/METABOLIC Hx Endocrine Disorders: No - HEMATOLOGICAL/ONCOLOGICAL Hx Blood Disorders: No - INTEGUMENTARY Hx Dermatological Problems: No - MUSCULOSKELETAL/RHEUMATOLOGICAL Hx Arthritis: Yes Hx Rheumatoid Arthritis: Yes - GASTROINTESTINAL Hx Gastrointestinal Disorders: Yes Hx Constipation: Yes - GENITOURINARY/GYNECOLOGICAL Hx Genitourinary Disorders: No - PSYCHIATRIC Hx Substance Use: No - SURGICAL HISTORY Hx Surgeries: Yes - ANESTHESIA Hx Anesthesia: No Hx Anesthesia Reactions: No Hx Malignant Hyperthermia: No Meds Allergies/Adverse Reactions: Allergies Allergy/AdvReac Type Severity Reaction Status Date / Time No Known Allergies Allergy Verified 03/05/17 13:52 Physical Exam - Constitutional Appears: Well, No Acute Distress - Head Exam Head Exam: ATRAUMATIC, NORMAL INSPECTION - Eye Exam Eye Exam: EOMI Pupil Exam: PERRL - ENT Exam ENT Exam: Mucous Membranes Moist Additional comments: teeth severely discolored, yellow, due to extensive history of eating Paan made of betel leaf, areca nut, and tobacco - Neck Exam Neck exam: Positive for: Normal Inspection. Negative for: Lymphadenopathy, Tenderness - Respiratory Exam Respiratory Exam: Rales Additional comments: inspiratory bibasalar rales - Cardiovascular Exam Cardiovascular Exam: Tachycardia, REGULAR RHYTHM, RRR, +S1, +S2. absent: Irregular Rhythm, Systolic Murmur - GI/Abdominal Exam GI & Abdominal Exam: Normal Bowel Sounds, Soft, Tenderness. absent: Distended, Guarding, Rebound, Rigid Additional comments: tender to palpation in periumbilical area - Rectal Exam Rectal Exam: Deferred - Extremities Exam Extremities exam: Positive for: normal capillary refill, normal inspection, pedal pulses present. Negative for: pedal edema - Neurological Exam Neurological exam: Alert, CN II-XII Intact, Normal Gait, Oriented x3 - Psychiatric Exam Psychiatric exam: Normal Affect, Normal Mood - Skin Skin Exam: Dry, Intact, Normal Color, Warm Results - Vital Signs Recent Vital Signs: Last Vital Signs Temp 97.7 F 03/05/17 19:44 Pulse 88 03/05/17 19:44 Resp 18 03/05/17 19:44 BP 153/93 H 03/05/17 19:44 Pulse Ox 99 03/05/17 19:44 - Labs Result Diagrams: 03/05/17 14:04 03/05/17 14:04 Labs: Laboratory Results - last 24 hr 03/05/17 03/05/17 03/05/17 14:04 14:04 14:04 WBC 4.8 RBC 3.89 L Hgb 13.8 Hct 39.2 MCV 100.8 H D MCH 35.4 H MCHC 35.1 RDW 14.3 Plt Count 169 MPV 7.7 Neut % (Auto) 77.8 H Lymph % (Auto) 12.0 L Swift % (Auto) 8.8 Eos % (Auto) 0.5 Baso % (Auto) 0.9 Neut # 3.7 Lymph # 0.6 L Swift # 0.4 Eos # 0.0 Baso # 0.0 PT 10.0 INR 0.9 APTT 29 Sodium 126 L Potassium 3.9 Chloride 91 L Carbon Dioxide 24 Anion Gap 15 BUN 5 L Creatinine 0.4 L Est GFR ( Amer) > 60 Est GFR (Non-Af Amer) > 60 Random Glucose 134 H Calcium 9.5 Total Bilirubin 1.0 AST 185 H ALT 61 Alkaline Phosphatase 77 Ammonia Troponin I < 0.0120 Total Protein 8.6 H Albumin 4.3 Globulin 4.3 H Albumin/Globulin Ratio 1.0 Amylase Lipase 146 Urine Color Urine Clarity Urine pH Ur Specific [place] Urine Protein Urine Glucose (UA) Urine Ketones Urine Blood Urine Nitrate Urine Bilirubin Urine Urobilinogen Ur Leukocyte Esterase Urine WBC (Auto) Urine RBC (Auto) Ur Squamous Epith Cells Urine Opiates Screen Urine Methadone Screen Ur Barbiturates Screen Ur Phencyclidine Scrn Ur Amphetamines Screen U Benzodiazepines Scrn U Oth Cocaine Metabols U Cannabinoids Screen Alcohol, Quantitative < 10 03/05/17 03/05/17 03/05/17 14:04 15:00 15:00 WBC RBC Hgb Hct MCV MCH MCHC RDW Plt Count MPV Neut % (Auto) Lymph % (Auto) Swift % (Auto) Eos % (Auto) Baso % (Auto) Neut # Lymph # Swift # Eos # Baso # PT INR APTT Sodium Potassium Chloride Carbon Dioxide Anion Gap BUN Creatinine Est GFR ( Amer) Est GFR (Non-Af Amer) Random Glucose Calcium Total Bilirubin AST ALT Alkaline Phosphatase Ammonia 24 Troponin I Total Protein Albumin Globulin Albumin/Globulin Ratio Amylase Lipase Urine Color Yellow Urine Clarity Clear Urine pH 7.0 Ur Specific [place] 1.012 Urine Protein 2+ H Urine Glucose (UA) 1+ H Urine Ketones Negative Urine Blood Negative Urine Nitrate Negative Urine Bilirubin Negative Urine Urobilinogen Normal Ur Leukocyte Esterase Neg Urine WBC (Auto) 2 Urine RBC (Auto) 3 Ur Squamous Epith Cells < 1 Urine Opiates Screen Negative Urine Methadone Screen Negative Ur Barbiturates Screen Negative Ur Phencyclidine Scrn Negative Ur Amphetamines Screen Negative U Benzodiazepines Scrn Negative U Oth Cocaine Metabols Negative U Cannabinoids Screen Negative Alcohol, Quantitative 03/05/17 15:42 WBC RBC Hgb Hct MCV MCH MCHC RDW Plt Count MPV Neut % (Auto) Lymph % (Auto) Swift % (Auto) Eos % (Auto) Baso % (Auto) Neut # Lymph # Swift # Eos # Baso # PT INR APTT Sodium Potassium Chloride Carbon Dioxide Anion Gap BUN Creatinine Est GFR ( Amer) Est GFR (Non-Af Amer) Random Glucose Calcium Total Bilirubin AST ALT Alkaline Phosphatase Ammonia Troponin I Total Protein Albumin Globulin Albumin/Globulin Ratio Amylase 122 H Lipase Urine Color Urine Clarity Urine pH Ur Specific [place] Urine Protein Urine Glucose (UA) Urine Ketones Urine Blood Urine Nitrate Urine Bilirubin Urine Urobilinogen Ur Leukocyte Esterase Urine WBC (Auto) Urine RBC (Auto) Ur Squamous Epith Cells Urine Opiates Screen Urine Methadone Screen Ur Barbiturates Screen Ur Phencyclidine Scrn Ur Amphetamines Screen U Benzodiazepines Scrn U Oth Cocaine Metabols U Cannabinoids Screen Alcohol, Quantitative Assessment & Plan (1) Enteritis Assessment and Plan: On admission: afebrile, normal wbc, tender to palpation in lower abd quadrants; UA negative CT abd/pelvis w/ IV contrast shows potential segmental acute enteritis involving proximal small bowel Cipro 400 ivp q12h Flagyl 500mg ivp q8h NPO for bowel rest except meds Status: Acute (2) Acute hyponatremia Assessment and Plan: Na 126 on admission; possibly due to volume depletion and inadequate solute intake; hx of hyponatremia on prior 2 admissions; (+) for n/v, headache, loss of appetite EKG showed NSR, no ST changes Normal saline at 100 cc/hr Status: Acute (3) Alcohol withdrawal Assessment and Plan: On admission: alcohol quantitative negative; AST/ALT > 2; amylase 122H, lipase 146N; BP and HR elevated on admission Pt with resting tremor however pt says tremors chronic; Pt denies alcohol abuse , admits to drinking socially only w/ last drink 2 days ago; Was seen by psych in 06/2015 for alcohol use disorder CIWA score 10 (tremor, headache, vomiting) CT abd/pelvis w/ IV contrast shows diffuse fatty infiltration liver Librium 50 po bid Ativan 1mg ivp q6h prn for agitation Fall and seizure precautions on telemetry Status: Acute (4) Hypertension Assessment and Plan: BP and HR well controlled on latest vital check con't home med amlodopine 10mg po qd Status: Chronic (5) Prophylactic measure Assessment and Plan: GI: protonix 40mg ivp qd DVT: heparin 5000u sc q12 Diet: NPO for now Prior studies: from 04/2016 Quantiferon positive due to prior history of Tb exposure; Sputum for AFB negative x 3; evidence of granulomatous disease involving lungs Mycoplasma IgG positive (likely due to prior exposure); Mycoplasma IgM negative Hep panel negative CARL positive with speckled pattern ANCA negative Status: Acute
[2017-03-05] MEDS: metroNIDAZOLE IV 500 mg/100 ml 500 MG/100 ML BAG IVPB SCH (23:20)
[2017-03-06] MEDS: Ciprofloxacin 400mg/200ml D5W 400 MG/200 ML BAG IVPB SCH ×3 (00:41→20:09)
[2017-03-06 01:34] VITALS: RESP 20
[2017-03-06] MEDS: metroNIDAZOLE IV 500 mg/100 ml 500 MG/100 ML BAG IVPB SCH ×3 (06:16→21:48)
[2017-03-06 07:22] LABS: CHLORIDE 94 mmol/L (98-107); POTASSIUM 3.9 mmol/L (3.6-5.2); SODIUM 132 mmol/L (132-148)
[2017-03-06 07:24] LABS: BILIRUBIN,TOTAL 1.2 mg/dL (0.2-1.3); GFR AFRICAN-AMERICAN > 60
[2017-03-06 07:25] LABS: ALB/GLOB RATIO 1.1 (1.0-2.1); ALKALINE PHOSPHATASE 68 U/L (38-126); ALT/SGPT 64 U/L (21-72); AST/SGOT 185 U/L (17-59); BLOOD UREA NITROGEN 4 mg/dL (9-20); CALCIUM 9.3 mg/dl (8.6-10.4); CARBON DIOXIDE 26 mmol/L (22-30); GLUCOSE,RANDOM 81 mg/dL (75-110); PHOSPHOROUS 2.7 mg/dL (2.5-4.5); TOTAL PROTEIN 8.1 g/dL (6.3-8.3)
[2017-03-06 07:26] LABS: BASO % 0.7 % (0.0-2.0); EOS # 0.3 K/uL (0.0-0.7); EOS % 6.1 % (0.0-4.0); HEMATOCRIT 40.1 % (35.0-51.0); MAGNESIUM 1.3 mg/dL (1.6-2.3); MEAN CELL VOLUME 101.4 fL (80.0-94.0); MEAN CORPUSCULAR HEMOGLOBIN 34.6 pg (27.0-31.0); MEAN CORPUSCULAR HGB CONC 34.1 g/dL (33.0-37.0); MEAN PLATELET VOLUME 8.2 fL (7.2-11.7); MONO # 0.5 K/uL (0.0-0.8); NRBC % 0.2 % (0.0-2.0); RED CELL DISTRIBUTION WIDTH 14.5 % (11.5-14.5); WHITE BLOOD COUNT 4.6 K/uL (4.8-10.8)
[2017-03-06] MEDS: Sodium Chloride 0.9% 1,000 ML IV SCH (16:57)
--- NOTE | 2017-03-06 17:23 | CP.PCM.PN ---
<Marjan Rosales - Last Filed: 03/06/17 17:20> Subjective - Date & Time of Evaluation Date of Evaluation: 03/06/17 Time of Evaluation: 17:20 - Subjective Subjective: Internal Medicine Note for Dr. Lopez Patient seen and examined at bedside. Patient states he had one BM after CT scan with contrast. Patient states he has difficulty with bowel movement. waste baler used at bedside. Patient admits to abdominal pain. Patient denies nausea or vomiting. Patient told he was going to be given an oral stool softener and fleet enema today. Patient had a bowel movement after treatment. Patient was placed on clear liquid diet and tolerated the diet throughout the day. Objective - Vital Signs/Intake and Output Vital Signs (last 24 hours): Temp Pulse Resp BP Pulse Ox 97.7 F 100 H 20 133/77 97 03/06/17 07:00 03/06/17 07:30 03/06/17 07:00 03/06/17 07:00 03/06/17 07:00 Intake and Output: 03/06/17 03/06/17 06:59 18:59 Intake Total 740 Balance 740 - Medications Medications: Current Medications Chlordiazepoxide (Librium) 50 mg PO BID [facility] Last Admin: 03/06/17 16:58 Dose: 50 mg Heparin Sodium (Porcine) (Heparin) 5,000 units SC Q12 [facility] Last Admin: 03/06/17 10:51 Dose: 5,000 units Ciprofloxacin (Cipro 400mg/200ml Dsw) 400 mg in 200 mls @ 133 mls/hr IVPB Q12H [facility] Last Admin: 03/06/17 08:40 Dose: 133 mls/hr Metronidazole (Flagyl) 500 mg in 100 mls @ 100 mls/hr IVPB Q8 [facility] Last Admin: 03/06/17 14:55 Dose: 100 mls/hr Sodium Chloride (Sodium Chloride 0.9%) 1,000 mls @ 100 mls/hr IV .Q10H [facility] Last Admin: 03/06/17 16:57 Dose: 100 mls/hr Lorazepam (Ativan) 1 mg IVP Q6H PRN PRN Reason: Agitation Pantoprazole Sodium (Protonix Inj) 40 mg IVP DAILY [facility] Last Admin: 03/06/17 10:50 Dose: 40 mg - Labs Labs: 03/06/17 06:54 03/06/17 06:54 PT 10.0 SECONDS (9.7-12.2) 03/05/17 14:04 INR 0.9 03/05/17 14:04 APTT 29 SECONDS (21-34) 03/05/17 14:04 - Constitutional Appears: Non-toxic - Head Exam Head Exam: NORMAL INSPECTION - Eye Exam Eye Exam: EOMI, Normal appearance - Neck Exam Neck Exam: Full ROM - Respiratory Exam Respiratory Exam: NORMAL BREATHING PATTERN. absent: Accessory Muscle Use, Chest Wall Tenderness, Respiratory Distress - Cardiovascular Exam Cardiovascular Exam: REGULAR RHYTHM, +S1, +S2. absent: Bradycardia, Tachycardia - GI/Abdominal Exam GI & Abdominal Exam: Soft, Tenderness. absent: Distended, Guarding, Rigid - Extremities Exam Extremities Exam: Full ROM, Normal Inspection. absent: Pedal Edema - Neurological Exam Neurological Exam: Alert, Awake, Oriented x3 - Psychiatric Exam Psychiatric exam: Normal Affect, Normal Mood - Skin Skin Exam: Dry, Pallor Additional comments: linn hue to skin tone Assessment and Plan - Assessment and Plan (Free Text) Assessment: Enteritis On admission: afebrile, normal wbc, tender to palpation in lower abd quadrants; UA negative CT abd/pelvis w/ IV contrast shows potential segmental acute enteritis involving proximal small bowel Cipro 400 IVP Q12H Flagyl 500mg IVP Q8H Diet advanced to Clear liquid diet today Status: Acute Constipation patient had BM after colace and fleet enema Acute hyponatremia Assessment and Plan: monitor BMP EKG showed NSR, no ST changes Normal saline at 100 cc/hr Status: Acute Alcohol withdrawal Assessment and Plan: On admission: alcohol quantitative negative; AST/ALT > 2; amylase 122H, lipase 146N; BP and HR elevated on admission Pt with resting tremor however pt says tremors chronic; Pt denies alcohol abuse , admits to drinking socially only w/ last drink 2 days ago; Was seen by psych in 06/2015 for alcohol use disorder CIWA score 10 (tremor, headache, vomiting) Patient is not having severe tremors at the time of visit 03/[address] abd/pelvis w/ IV contrast shows diffuse fatty infiltration liver Librium 50 POBID Ativan 1mg IVP A6H PRN for agitation Fall and seizure precautions follow telemetry Status: Acute Hypertension Assessment and Plan: BP and HR well controlled on latest vital check con't home med amlodopine 10mg POQD Status: Chronic Prophylactic measure Assessment and Plan: GI: protonix 40mg ivp qd DVT: heparin 5000u sc q12 Diet: clear liquid diet <Clay Lopez H - Last Filed: 03/07/17 07:10> Objective - Vital Signs/Intake and Output Vital Signs (last 24 hours): Temp Pulse Resp BP Pulse Ox 98 F 93 H 20 114/73 97 03/06/17 23:45 03/07/17 00:00 03/06/17 23:45 03/06/17 23:45 03/06/17 23:45 Intake and Output: 03/07/17 03/07/17 06:59 18:59 Intake Total 1650 Output Total 400 Balance 1250 - Medications Medications: Current Medications Chlordiazepoxide (Librium) 50 mg PO BID [facility] Last Admin: 03/06/17 16:58 Dose: 50 mg Heparin Sodium (Porcine) (Heparin) 5,000 units SC Q12 [facility] Last Admin: 03/06/17 21:55 Dose: 5,000 units Ciprofloxacin (Cipro 400mg/200ml Dsw) 400 mg in 200 mls @ 133 mls/hr IVPB Q12H [facility] Last Admin: 03/06/17 20:09 Dose: 133 mls/hr Metronidazole (Flagyl) 500 mg in 100 mls @ 100 mls/hr IVPB Q8 [facility] Last Admin: 03/07/17 05:21 Dose: 100 mls/hr Sodium Chloride (Sodium Chloride 0.9%) 1,000 mls @ 100 mls/hr IV .Q10H [facility] Last Admin: 03/07/17 05:22 Dose: 100 mls/hr Lorazepam (Ativan) 1 mg IVP Q6H PRN PRN Reason: Agitation Pantoprazole Sodium (Protonix Inj) 40 mg IVP DAILY [facility] Last Admin: 03/06/17 10:50 Dose: 40 mg - Labs Labs: 03/06/17 06:54 03/06/17 06:54 PT 10.0 SECONDS (9.7-12.2) 03/05/17 14:04 INR 0.9 03/05/17 14:04 APTT 29 SECONDS (21-34) 03/05/17 14:04 Attending/Attestation - Attestation I have personally seen and examined this patient.: Yes I have fully participated in the care of the patient.: Yes I have reviewed all pertinent clinical information, including history, physical exam and plan: Yes Notes (Text): 03/07/17 07:08 Medical Attending: Patient was seen and examined by me. agree with the above note by the resident. 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 We reviewed the CT imaging of the abdomen and there was a lot of constipation. Also there is a history of questionable alcohol. It is not clear via the translation if the patient is telling us the truth with reguards to how much he drinks thank you Clay Lopez
[2017-03-07] MEDS: Sodium Chloride 0.9% 1,000 ML IV SCH ×3 (02:45→12:45)
[2017-03-07] MEDS: metroNIDAZOLE IV 500 mg/100 ml 500 MG/100 ML BAG IVPB SCH ×2 (05:21→14:00)
[2017-03-07 08:11] LABS: BASO # 0.1 K/uL (0.0-0.2); BASO % 1.5 % (0.0-2.0); EOS # 0.5 K/uL (0.0-0.7); EOS % 11.4 % (0.0-4.0); HEMATOCRIT 38.8 % (35.0-51.0); LYMPH # 1.2 K/uL (1.0-4.3); LYMPH % 29.2 % (20.0-40.0); MEAN CELL VOLUME 102.8 fL (80.0-94.0); MEAN CORPUSCULAR HEMOGLOBIN 35.6 pg (27.0-31.0); MEAN CORPUSCULAR HGB CONC 34.6 g/dL (33.0-37.0); MONO # 0.6 K/uL (0.0-0.8); MONO % 13.2 % (0.0-10.0); NRBC % 0.3 % (0.0-2.0); RED CELL DISTRIBUTION WIDTH 14.1 % (11.5-14.5); WHITE BLOOD COUNT 4.2 K/uL (4.8-10.8)
[2017-03-07 08:28] LABS: CHLORIDE 101 mmol/L (98-107)
[2017-03-07 08:29] LABS: POTASSIUM 3.3 mmol/L (3.6-5.2); SODIUM 132 mmol/L (132-148)
[2017-03-07 08:31] LABS: ALB/GLOB RATIO 1.1 (1.0-2.1); ALKALINE PHOSPHATASE 78 U/L (38-126); AST/SGOT 175 U/L (17-59); BILIRUBIN,TOTAL 0.6 mg/dL (0.2-1.3); BLOOD UREA NITROGEN 6 mg/dL (9-20); CARBON DIOXIDE 21 mmol/L (22-30); GFR AFRICAN-AMERICAN > 60; GLUCOSE,RANDOM 91 mg/dL (75-110); TOTAL PROTEIN 7.1 g/dL (6.3-8.3)
[2017-03-07 08:32] LABS: ALT/SGPT 63 U/L (21-72); CALCIUM 8.7 mg/dl (8.6-10.4); MAGNESIUM 1.3 mg/dL (1.6-2.3); PHOSPHOROUS 2.8 mg/dL (2.5-4.5)
[2017-03-07 08:37] VITALS: BP 134/84; PULSE 72; TEMP 97.6; O2SAT 99
[2017-03-07] MEDS: Ciprofloxacin 400mg/200ml D5W 400 MG/200 ML BAG IVPB SCH (09:00)
[2017-03-07] MEDS ORDERED: Influenza Vaccine 60 mcg/0.5 mL SYR (4YR UP) IM ONE ×2 (10:00→16:45)
[2017-03-07] MEDS ORDERED: Potassium Chloride 20 mEq ER Tab PO ONE (10:20)
--- NOTE | 2017-03-07 10:50 | CARD ---
APPROVED REPORT EKG Measurement Heart [id number] SD [id number] <Conclusion> Sinus tachycardia Otherwise normal ECG
--- NOTE | 2017-03-07 11:19 | CP.PCM.DIS ---
<Marjan Rosales - Last Filed: 03/07/17 21:03> Provider - Provider Date of Admission: 03/05/17 18:08 Attending physician: Harjit Bui MD Primary care physician: Dr. Lopez Time Spent in preparation of Discharge (in minutes): 35 Diagnosis - Discharge Diagnosis (1) Constipation Status: Resolved Comment: resolved. patient is having bowel movements Hospital Course - Lab Results Lab Results: Most Recent Lab Values WBC 4.2 K/uL (4.8-10.8) L 03/07/17 07:55 RBC 3.77 Mil/uL (4.40-5.90) L 03/07/17 07:55 Hgb 13.4 g/dL (12.0-18.0) 03/07/17 07:55 Hct 38.8 % (35.0-51.0) 03/07/17 07:55 MCV 102.8 fL (80.0-94.0) H 03/07/17 07:55 MCH 35.6 pg (27.0-31.0) H 03/07/17 07:55 MCHC 34.6 g/dL (33.0-37.0) 03/07/17 07:55 RDW 14.1 % (11.5-14.5) 03/07/17 07:55 Plt Count 149 K/uL (130-400) 03/07/17 07:55 MPV 9.0 fL (7.2-11.7) 03/07/17 07:55 Neut % (Auto) 44.7 % (50.0-75.0) L 03/07/17 07:55 Lymph % (Auto) 29.2 % (20.0-40.0) 03/07/17 07:55 [place] % (Auto) 13.2 % (0.0-10.0) H 03/07/17 07:55 Eos % (Auto) 11.4 % (0.0-4.0) H 03/07/17 07:55 Baso % (Auto) 1.5 % (0.0-2.0) 03/07/17 07:55 Neut # 1.9 K/uL (1.8-7.0) 03/07/17 07:55 Lymph # 1.2 K/uL (1.0-4.3) 03/07/17 07:55 [place] # 0.6 K/uL (0.0-0.8) 03/07/17 07:55 Eos # 0.5 K/uL (0.0-0.7) 03/07/17 07:55 Baso # 0.1 K/uL (0.0-0.2) 03/07/17 07:55 PT 10.0 SECONDS (9.7-12.2) 03/05/17 14:04 INR 0.9 03/05/17 14:04 APTT 29 SECONDS (21-34) 03/05/17 14:04 Sodium 132 mmol/L (132-148) 03/07/17 07:55 Potassium 3.3 mmol/L (3.6-5.2) L 03/07/17 07:55 Chloride 101 mmol/L (98-107) 03/07/17 07:55 Carbon Dioxide 21 mmol/L (22-30) L 03/07/17 07:55 Anion Gap 13 (10-20) 03/07/17 07:55 BUN 6 mg/dL (9-20) L 03/07/17 07:55 Creatinine 0.6 mg/dL (0.8-1.5) L 03/07/17 07:55 Est GFR ( Amer) > 60 03/07/17 07:55 Est GFR (Non-Af Amer) > 60 03/07/17 07:55 POC Glucose (mg/dL) 135 mg/dL (65-110) H 03/06/17 21:41 Random Glucose 91 mg/dL (75-110) 03/07/17 07:55 Calcium 8.7 mg/dl (8.6-10.4) 03/07/17 07:55 Phosphorus 2.8 mg/dL (2.5-4.5) 03/07/17 07:55 Magnesium 1.3 mg/dL (1.6-2.3) L 03/07/17 07:55 Total Bilirubin 0.6 mg/dL (0.2-1.3) 03/07/17 07:55 AST 175 U/L (17-59) H 03/07/17 07:55 ALT 63 U/L (21-72) 03/07/17 07:55 Alkaline Phosphatase 78 U/L (38-126) 03/07/17 07:55 Ammonia 24 umol/L (9-33) 03/05/17 14:04 Troponin I < 0.0120 ng/mL (0.00-0.120) 03/05/17 14:04 Total Protein 7.1 g/dL (6.3-8.3) 03/07/17 07:55 Albumin 3.7 g/dL (3.5-5.0) 03/07/17 07:55 Globulin 3.3 gm/dL (2.2-3.9) 03/07/17 07:55 Albumin/Globulin Ratio 1.1 (1.0-2.1) 03/07/17 07:55 Amylase 122 U/L (30-110) H 03/05/17 15:42 Lipase 146 U/L (23-300) 03/05/17 14:04 Urine Color Yellow (YELLOW) 03/05/17 15:00 Urine Clarity Clear (Clear) 03/05/17 15:00 Urine pH 7.0 (5.0-8.0) 03/05/17 15:00 Ur Specific [place] 1.012 (1.003-1.030) 03/05/17 15:00 Urine Protein 2+ mg/dL (NEGATIVE) H 03/05/17 15:00 Urine Glucose (UA) 1+ mg/dL (Normal) H 03/05/17 15:00 Urine Ketones Negative mg/dL (NEGATIVE) 03/05/17 15:00 Urine Blood Negative (NEGATIVE) 03/05/17 15:00 Urine Nitrate Negative (NEGATIVE) 03/05/17 15:00 Urine Bilirubin Negative (NEGATIVE) 03/05/17 15:00 Urine Urobilinogen Normal mg/dL (0.2-1.0) 03/05/17 15:00 Ur Leukocyte Esterase Neg [place]/uL (Negative) 03/05/17 15:00 Urine WBC (Auto) 2 /hpf (0-5) 03/05/17 15:00 Urine RBC (Auto) 3 /hpf (0-3) 03/05/17 15:00 Ur Squamous Epith Cells < 1 /hpf (0-5) 03/05/17 15:00 Urine Opiates Screen Negative (NEGATIVE) 03/05/17 15:00 Urine Methadone Screen Negative (NEGATIVE) 03/05/17 15:00 Ur Barbiturates Screen Negative (NEGATIVE) 03/05/17 15:00 Ur Phencyclidine Scrn Negative (NEGATIVE) 03/05/17 15:00 Ur Amphetamines Screen Negative (NEGATIVE) 03/05/17 15:00 U Benzodiazepines Scrn Negative (NEGATIVE) 03/05/17 15:00 U Oth Cocaine Metabols Negative (NEGATIVE) 03/05/17 15:00 U Cannabinoids Screen Negative (NEGATIVE) 03/05/17 15:00 Alcohol, Quantitative < 10 mg/dl (0-10) 03/05/17 14:04 - Hospital Course Hospital Course: 56 yo M with a PMHx of HTN, hx of kidney stones, hx of tuberculosis, compression deformity of T11 vertebral body, presented to the ED c/o of worsening intermittent periumbilical abdominal pain rated 10/10 that started 5 days ago. He describes it as a stabbing quality with radiation to his lumbar back. He took miralax and advil without relief. Associated symptoms include loss of appetite for past 2 weeks, 1 episode of non-bloody diarrhea yesterday, 1 episode of non-bloody non-bilious emesis today, and headache. He also complains of chronic body aches in his legs, feet, and shoulders ongoing for the past 2 years. He denied all other prompts on review of systems. On admission: CT abd/pelvis w/ IV contrast shows potential segmental acute enteritis involving proximal small bowel Patient placed on Cipro 400 IVP Q12H and Flagyl 500mg IVP Q8H for possible enteritis Patient was put on librium 50mg POBID with a CIWA score of 10 03/[address] yesterday and had a small bowel movement after treatment. Patient was given colace, then fleet enema and had 2 large bowel movements after 03/07 Patient states he had 2 large bowel movements after the enema, feels fine and would like to go home. His cousin is getting on Thursday. Patient discharged on Colace, to continue home medication as directed Enteritis On admission: afebrile, normal wbc, tender to palpation in lower abd quadrants; UA negative CT abd/pelvis w/ IV contrast shows potential segmental acute enteritis involving proximal small bowel Cipro 400 IVP Q12H Flagyl 500mg IVP Q8H Diet advanced to Clear liquid diet today Patient dicharged on Cipro 250 mg PO BID for five days Constipation patient had 2 large BM after colace and fleet enema Patient dicharged on Colace and instructed to eat bananas and other food that encourages good bowel movement Acute hyponatremia, resolved Assessment and Plan: monitor BMP EKG showed NSR, no ST changes Normal saline at 100 cc/hr Alcohol withdrawal, patient does not have any tremors on visit 03/07, patient appears to be defensive when asked about it Assessment and Plan: On admission: alcohol quantitative negative; AST/ALT > 2; amylase 122H, lipase 146N; BP and HR elevated on admission Pt with resting tremor however pt says tremors chronic; Pt denies alcohol abuse , admits to drinking socially only w/ last drink 2 days ago; Was seen by psych in 06/2015 for alcohol use disorder CIWA score 10 (tremor, headache, vomiting) on admission, Patient not showing signs of alcohol withdrawal during stay, patient was put on librium 50mg POBID Patient is not having severe tremors at the time of visit 03/[address] abd/pelvis w/ IV contrast shows diffuse fatty infiltration liver Librium 50 POBID, discontinued with discharge Ativan 1mg IVP A6H PRN for agitation, discontinued with discharge Fall and seizure precautions and follow telemetry during hospital stay Hypertension, controlled on benito medication Assessment and Plan: BP and HR well controlled on latest vital check con't home med amlodopine 10mg POQD Prophylactic measure Assessment and Plan: GI: protonix 40mg ivp qd during hospital stay DVT: heparin 5000u sc q12 during hospital stay Diet: clear liquid diet, tolerated during hospital stay. can resume normal diet at home - Date & Time of H&P Date of H&P: 03/07/17 Time of H&P: 15:50 Discharge Exam - Head Exam Head Exam: NORMAL INSPECTION - Eye Exam Eye Exam: EOMI - ENT Exam ENT Exam: Mucous Membranes Moist - Neck Exam Neck exam: Full Rom, Tenderness - Respiratory Exam Respiratory Exam: NORMAL BREATHING PATTERN. absent: Accessory Muscle Use - Cardiovascular Exam Cardiovascular Exam: REGULAR RHYTHM, +S1, +S2 - GI/Abdominal Exam GI & Abdominal Exam: Soft. absent: Firm, Guarding, Tenderness - Extremities Exam Extremities exam: full ROM Additional comments: patient admits to left knee pain, which is chronic for him - Neurological Exam Neurological exam: Alert, Reflexes Normal - Psychiatric Exam Psychiatric exam: Normal Affect, Normal Mood - Skin Skin Exam: Dry, Intact, Normal Color, Warm Discharge Plan - Discharge Medications Prescriptions: Ciprofloxacin [Cipro] 250 mg PO BID #10 tab Docusate [Colace] 100 mg PO STAT 30 Days cap - Follow Up Plan Condition: STABLE Disposition: HOME/ ROUTINE Instructions: Ciprofloxacin (By mouth), Laxative, Stool Softeners (By mouth), Constipation (DC), Constipation (GEN) Additional Instructions: follow up with a primary care doctor in one week or establish care in clinic take colace, eat bananas as needed for bowel movements Ciprofloxacin 250 mg PO BID for 5 days return to Emergency department if symptoms worsen, no bowel movement, extreme abdominal pain, nausea and vomiting. <Clay Lopez - Last Filed: 03/08/17 07:18> Provider - Provider Date of Admission: 03/05/17 18:08 Attending physician: Harjit Bui MD Hospital Course - Lab Results Lab Results: Most Recent Lab Values WBC 4.2 K/uL (4.8-10.8) L 03/07/17 07:55 RBC 3.77 Mil/uL (4.40-5.90) L 03/07/17 07:55 Hgb 13.4 g/dL (12.0-18.0) 03/07/17 07:55 Hct 38.8 % (35.0-51.0) 03/07/17 07:55 MCV 102.8 fL (80.0-94.0) H 03/07/17 07:55 MCH 35.6 pg (27.0-31.0) H 03/07/17 07:55 MCHC 34.6 g/dL (33.0-37.0) 03/07/17 07:55 RDW 14.1 % (11.5-14.5) 03/07/17 07:55 Plt Count 149 K/uL (130-400) 03/07/17 07:55 MPV 9.0 fL (7.2-11.7) 03/07/17 07:55 Neut % (Auto) 44.7 % (50.0-75.0) L 03/07/17 07:55 Lymph % (Auto) 29.2 % (20.0-40.0) 03/07/17 07:55 [place] % (Auto) 13.2 % (0.0-10.0) H 03/07/17 07:55 Eos % (Auto) 11.4 % (0.0-4.0) H 03/07/17 07:55 Baso % (Auto) 1.5 % (0.0-2.0) 03/07/17 07:55 Neut # 1.9 K/uL (1.8-7.0) 03/07/17 07:55 Lymph # 1.2 K/uL (1.0-4.3) 03/07/17 07:55 [place] # 0.6 K/uL (0.0-0.8) 03/07/17 07:55 Eos # 0.5 K/uL (0.0-0.7) 03/07/17 07:55 Baso # 0.1 K/uL (0.0-0.2) 03/07/17 07:55 PT 10.0 SECONDS (9.7-12.2) 03/05/17 14:04 INR 0.9 03/05/17 14:04 APTT 29 SECONDS (21-34) 03/05/17 14:04 Sodium 132 mmol/L (132-148) 03/07/17 07:55 Potassium 3.3 mmol/L (3.6-5.2) L 03/07/17 07:55 Chloride 101 mmol/L (98-107) 03/07/17 07:55 Carbon Dioxide 21 mmol/L (22-30) L 03/07/17 07:55 Anion Gap 13 (10-20) 03/07/17 07:55 BUN 6 mg/dL (9-20) L 03/07/17 07:55 Creatinine 0.6 mg/dL (0.8-1.5) L 03/07/17 07:55 Est GFR ( Amer) > 60 03/07/17 07:55 Est GFR (Non-Af Amer) > 60 03/07/17 07:55 POC Glucose (mg/dL) 95 mg/dL (65-110) 03/07/17 17:00 Random Glucose 91 mg/dL (75-110) 03/07/17 07:55 Calcium 8.7 mg/dl (8.6-10.4) 03/07/17 07:55 Phosphorus 2.8 mg/dL (2.5-4.5) 03/07/17 07:55 Magnesium 1.3 mg/dL (1.6-2.3) L 03/07/17 07:55 Total Bilirubin 0.6 mg/dL (0.2-1.3) 03/07/17 07:55 AST 175 U/L (17-59) H 03/07/17 07:55 ALT 63 U/L (21-72) 03/07/17 07:55 Alkaline Phosphatase 78 U/L (38-126) 03/07/17 07:55 Ammonia 24 umol/L (9-33) 03/05/17 14:04 Troponin I < 0.0120 ng/mL (0.00-0.120) 03/05/17 14:04 Total Protein 7.1 g/dL (6.3-8.3) 03/07/17 07:55 Albumin 3.7 g/dL (3.5-5.0) 03/07/17 07:55 Globulin 3.3 gm/dL (2.2-3.9) 03/07/17 07:55 Albumin/Globulin Ratio 1.1 (1.0-2.1) 03/07/17 07:55 Amylase 122 U/L (30-110) H 03/05/17 15:42 Lipase 146 U/L (23-300) 03/05/17 14:04 Urine Color Yellow (YELLOW) 03/05/17 15:00 Urine Clarity Clear (Clear) 03/05/17 15:00 Urine pH 7.0 (5.0-8.0) 03/05/17 15:00 Ur Specific [place] 1.012 (1.003-1.030) 03/05/17 15:00 Urine Protein 2+ mg/dL (NEGATIVE) H 03/05/17 15:00 Urine Glucose (UA) 1+ mg/dL (Normal) H 03/05/17 15:00 Urine Ketones Negative mg/dL (NEGATIVE) 03/05/17 15:00 Urine Blood Negative (NEGATIVE) 03/05/17 15:00 Urine Nitrate Negative (NEGATIVE) 03/05/17 15:00 Urine Bilirubin Negative (NEGATIVE) 03/05/17 15:00 Urine Urobilinogen Normal mg/dL (0.2-1.0) 03/05/17 15:00 Ur Leukocyte Esterase Neg [place]/uL (Negative) 03/05/17 15:00 Urine WBC (Auto) 2 /hpf (0-5) 03/05/17 15:00 Urine RBC (Auto) 3 /hpf (0-3) 03/05/17 15:00 Ur Squamous Epith Cells < 1 /hpf (0-5) 03/05/17 15:00 Urine Opiates Screen Negative (NEGATIVE) 03/05/17 15:00 Urine Methadone Screen Negative (NEGATIVE) 03/05/17 15:00 Ur Barbiturates Screen Negative (NEGATIVE) 03/05/17 15:00 Ur Phencyclidine Scrn Negative (NEGATIVE) 03/05/17 15:00 Ur Amphetamines Screen Negative (NEGATIVE) 03/05/17 15:00 U Benzodiazepines Scrn Negative (NEGATIVE) 03/05/17 15:00 U Oth Cocaine Metabols Negative (NEGATIVE) 03/05/17 15:00 U Cannabinoids Screen Negative (NEGATIVE) 03/05/17 15:00 Alcohol, Quantitative < 10 mg/dl (0-10) 03/05/17 14:04 Attending/Attestation - Attestation I have personally seen and examined this patient.: Yes I have fully participated in the care of the patient.: Yes I have reviewed all pertinent clinical information, including history, physical exam and plan: Yes Notes (Text): Medical Attending: Patient was seen and examined by me. Agree with the above note by the resident The patient previous day had an enema and he then had two very large BMs after this. He reports feeling much better than before. He was able to tolerate diet without problems. Also he was not having any shaking or tremors on exam. We had to have a fuel cell battery technician computer service provide translation. His Na was better, lab work stable. We choose to send with small dose of oral cipro as well however this might not have been neccessary. Problely the main reason he came in was the large amount of constipation he was having - especially when looking at the CT scan thank you Clay Lopez
== END 2017-03-07 19:00 | disposition home or self-care (01) | DRG 813 ==
LOC: C.ER 13:20 → C.9E 18:08 → C.6T 19:23
PROVIDERS: ADMIT Internal Medicine; ATTEND Internal Medicine
DX: K52.9 Noninfective gastroenteritis and colitis, unspecified (principal); E87.1 Hypo-osmolality and hyponatremia; I12.9 Hypertensive chronic kidney disease with stage 1 through stage 4 chronic kidney disease, or unspecified chronic kidney disease; F10.239 Alcohol dependence with withdrawal, unspecified; N18.9 Chronic kidney disease, unspecified; K70.0 Alcoholic fatty liver; J45.909 Unspecified asthma, uncomplicated; K59.00 Constipation, unspecified; M06.9 Rheumatoid arthritis, unspecified; R76.8 Other specified abnormal immunological findings in serum; F17.210 Nicotine dependence, cigarettes, uncomplicated; Z80.51 Family history of malignant neoplasm of kidney; Z86.11 Personal history of tuberculosis; Z87.442 Personal history of urinary calculi

== ENCOUNTER 2017-04-16 20:01 | Inpatient (IN) | payer OTHER, SELFPAY ==
--- NOTE | 2017-04-16 20:03 | C.PDOC ---
History Of Present Illness Patient presents to ED with complaints of dull and aching abdominal pain 4/10 and difficulty urinating. Patient states he had similar episodes 10 days and was treated for bad Enteritis. Patient denies fever, chills, back pain, hematuria, blood in stool or any other complaints at this time. Time Seen by Provider: 04/16/17 20:03 History Per: Patient History/Exam Limitations: no limitations Onset/Duration Of Symptoms: Days Current Symptoms Are (Timing): Still Present Severity: Mild Pain Scale Rating Of: 2 Location Of Pain/Discomfort: Diffuse Radiation Of Pain To:: None Quality Of Discomfort: Dull, Aching Associated Symptoms: denies: Fever, Chills Exacerbating Factors: None Alleviating Factors: None Last Bowel Movement: Today Recent travel outside of the [place]: No Additional History Per: Patient Past Medical History Reviewed: Historical Data, Nursing Documentation, Vital Signs Vital Signs: Last Vital Signs Temp 98 F 04/16/17 20:20 Pulse 95 H 04/16/17 22:56 Resp 19 04/16/17 22:56 BP 137/87 04/16/17 22:56 Pulse Ox 100 04/16/17 22:56 - Medical History PMH: Arthritis, Asthma, Back Problems, HTN, Kidney Stones, Chronic Kidney Disease, Rheumatoid Arthritis Surgical History: Back Surgery Family History: States: No Known Family Hx - Social History Hx Tobacco Use: Yes Hx Alcohol Use: Yes Hx Substance Use: No - Immunization History Hx Tetanus Toxoid Vaccination: No Hx Influenza Vaccination: Yes (04/11/2016) Hx Pneumococcal Vaccination: Yes (04/11/2016) Review Of Systems Constitutional: Negative for: Fever, Chills ENT: Negative for: Throat Pain Cardiovascular: Negative for: Chest Pain Respiratory: Negative for: Shortness of Breath Gastrointestinal: Positive for: Abdominal Pain. Negative for: Nausea, Vomiting Genitourinary: Positive for: Other (difficulty urinating). Negative for: Hematuria Musculoskeletal: Negative for: Back Pain Skin: Negative for: Rash Neurological: Negative for: Weakness Psych: Negative for: Anxiety Physical Exam - Physical Exam Appears: Non-toxic, No Acute Distress Skin: Warm, Dry, No Rash Head: Normacephalic Eye(s): bilateral: Normal Inspection Oral Mucosa: Moist Neck: Supple Chest: Symmetrical Cardiovascular: Rhythm Regular Respiratory: No Rales, No Rhonchi, No Wheezing Gastrointestinal/Abdominal: Soft, Tenderness (Mild diffuse ), No Guarding, No Rebound Back: No CVA Tenderness Neurological/Psych: Oriented x3 ED Course And Treatment - Laboratory Results Result Diagrams: 04/16/17 20:25 04/16/17 20:25 O2 Sat by Pulse Oximetry: 100 (RA) Pulse Ox Interpretation: Normal Disposition Discussed With : Harjit Bui Comment: accepted the p ton his service and took over the care at 12:42 AM Doctor Will See Patient In The: ED Counseled Patient/Family Regarding: Studies Performed, Diagnosis - Disposition Referrals: Non [facility] Provider, [Primary Care Provider] - Disposition: HOSPITALIZED Disposition Time: 20:03 Condition: FAIR - POA Present On Arrival: None - Clinical Impression Clinical Impression: Abdominal pain, Pulmonary nodule, Hyponatremia - Scribe Statement The provider has reviewed the documentation as recorded by the Scribe Santi Mccoy All medical record entries made by the Scribe were at my direction and personally dictated by me. I have reviewed the chart and agree that the record accurately reflects my personal performance of the history, physical exam, medical decision making, and the department course for this patient. I have also personally directed, reviewed, and agree with the discharge instructions and disposition. Decision To Admit - Pt Status Changed To: Hospital Disposition Of: Inpatient - Admit Certification Admit to Inpatient:: After my assessment, the patient will require hospitalization for at least two midnights. This is because of the severity of symptoms shown, intensity of services needed, and/or the medical risk in this patient being treated as an outpatient. - InPatient: Physician Admission Certification:: After my assessment, the patient will require hospitalization for at least two midnights. This is because of the severity of symptoms shown, intensity of services needed, and/or the medical risk in this patient being treated as an outpatient. - . Bed Request Type: Regular Admitting Physician: Harjit Bui Patient Diagnosis: Abdominal pain, Pulmonary nodule, Hyponatremia
[2017-04-16 20:08] VITALS: BMI 23.8
[2017-04-16 20:34] LABS: BASO # 0.1 K/uL (0.0-0.2); BASO % 0.7 % (0.0-2.0); EOS # 0.1 K/uL (0.0-0.7); EOS % 1.4 % (0.0-4.0); HEMATOCRIT 42.6 % (35.0-51.0); LYMPH % 11.5 % (20.0-40.0); MEAN CELL VOLUME 99.7 fL (80.0-94.0); MEAN CORPUSCULAR HEMOGLOBIN 34.4 pg (27.0-31.0); MEAN CORPUSCULAR HGB CONC 34.5 g/dL (33.0-37.0); MEAN PLATELET VOLUME 7.9 fL (7.2-11.7); MONO % 11.4 % (0.0-10.0); RED CELL DISTRIBUTION WIDTH 15.1 % (11.5-14.5); WHITE BLOOD COUNT 8.6 K/uL (4.8-10.8)
[2017-04-16 20:42] LABS: INR 0.9
[2017-04-16 20:43] LABS: RBC URINE < 1 /hpf (0-3); URINE BACTERIA RARE (<OCC); URINE BILIRUBIN NEGATIVE (NEGATIVE); URINE BLOOD NEGATIVE (NEGATIVE); URINE COLOR Straw (YELLOW); URINE GLUCOSE (UA) 1+ mg/dL (Normal); URINE KETONE NEGATIVE (NEGATIVE); URINE LEUKOCYTE ESTERASE NEG Leu/uL (Negative); URINE PROTEIN 2+ mg/dL (NEGATIVE); URINE UROBILINOGEN NORMAL mg/dL (0.2-1.0); WBC URINE < 1 /hpf (0-5)
[2017-04-16 20:47] LABS: ALCOHOL SERUM < 10 mg/dl (0-10); ALKALINE PHOSPHATASE 85 U/L (38-126); ALT/SGPT 30 U/L (21-72); AST/SGOT 54 U/L (17-59); BILIRUBIN,TOTAL 1.3 mg/dL (0.2-1.3); BLOOD UREA NITROGEN 3 mg/dL (9-20); CALCIUM 9.2 mg/dl (8.6-10.4); CARBON DIOXIDE 25 mmol/L (22-30); CHLORIDE 91 mmol/L (98-107); GFR AFRICAN-AMERICAN > 60; GLUCOSE,RANDOM 107 mg/dL (75-110); POTASSIUM 3.6 mmol/L (3.6-5.2); SODIUM 129 mmol/L (132-148); TOTAL PROTEIN 9.3 g/dL (6.3-8.3)
[2017-04-16 20:49] LABS: ALB/GLOB RATIO 1.2 (1.0-2.1)
[2017-04-16] MEDS ORDERED: Iohexol 240 (50 ml) PO ONE (21:34)
[2017-04-16] MEDS ORDERED: Iohexol 240 (50 ml) ONE (21:56)
[2017-04-16] MEDS ORDERED: Iohexol 300 100 ML IJ ONE (22:13)
[2017-04-16] MEDS ORDERED: Sodium Chloride 0.9% 1,000 ML IV ONE (22:50)
--- NOTE | 2017-04-16 22:50 | CP.PCM.HP ---
<Aguilar Hodgson - Last Filed: 04/17/17 07:58> History of Present Illness - History of Present Illness History of Present Illness: CC: "My belly hurts" Patient is a 56 year old male, with a PMHx of HTN, nephrolithiasis, hx of tuberculosis, compression deformity of T11 vertebral body, and ETOH abuse, as well as recent admission to [facility], [place] in March 2017, for enteritis, presented to the ED c/o of worsening intermittent periumbilical abdominal pain rated 10/10 that started 2 days ago. Patient describes the pain as "aching and stabbing that radiates to his sides" bilaterally. The pain has been constant for 2 days and has not tried taking over the counter medications for the pain. Patient notes non-bloody diarrhea (5-6x per day) for the past 2 days and vomiting yesterday, and this morning. Patient also states he is constantly feeling cold and has been drinking 3 glasses of lorin each day for the past 2 days thinking it would alleviate his chills. He states he experienced a similar episode half a month ago which he admitted to the hospital for and given antibiotics. Patient admits decreased appetite, and states he does not feel hungry, and feels he has lost weight recently though he cannot quantify the amount. Patient denies fever, vision changes, chest pain, palpitations, shortness of breath, hematemsis, hematochezia, dysuria, recent travel, and sick contacts. 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 absent: Fever - EENT Eyes: absent: Change in Vision Ears: absent: Decreased Hearing Nose/Mouth/Throat: absent: Nasal Congestion, Nasal Discharge - Cardiovascular Cardiovascular: absent: Chest Pain, Chest Pain with Activity - Respiratory Respiratory: absent: Cough, Dyspnea, Wheezing - Gastrointestinal Gastrointestinal: Abdominal Pain (worst on left). absent: Change in Stool Character, Cramping, Hematemesis, Hematochezia, Nausea, Vomiting - Genitourinary Genitourinary: absent: Dysuria, Urinary Frequency - Musculoskeletal Musculoskeletal: Back Pain (flank pain). absent: Numbness, Tingling - Integumentary Integumentary: absent: Dry Skin, Wounds - Neurological Neurological: absent: Confusion, Weakness - Psychiatric Psychiatric: absent: Anxiety - Endocrine Endocrine: absent: Palpitations, Polydipsia, Polyphagia - Hematologic/Lymphatic Hematologic: absent: Easy Bleeding, Easy Bruising Past Patient History - Infectious Disease Hx of Infectious Diseases: None - Tetanus Immunizations Tetanus Immunization: Unknown - Past Medical History & Family History Past Medical History?: Yes - Past Social History Smoking Status: Light Smoker < 10 Cigarettes Daily - CARDIAC Hx Hypertension: Yes - PULMONARY Hx Asthma: Yes - NEUROLOGICAL Hx Neurological Disorder: No - HEENT Hx HEENT Problems: No - RENAL Hx Chronic Kidney Disease: Yes Hx Kidney Stones: Yes - ENDOCRINE/METABOLIC Hx Endocrine Disorders: No - HEMATOLOGICAL/ONCOLOGICAL Hx Blood Disorders: No - INTEGUMENTARY Hx Dermatological Problems: No - MUSCULOSKELETAL/RHEUMATOLOGICAL Hx Arthritis: Yes Hx Rheumatoid Arthritis: Yes - GASTROINTESTINAL Hx Gastrointestinal Disorders: Yes Hx Constipation: Yes - GENITOURINARY/GYNECOLOGICAL Hx Genitourinary Disorders: No - PSYCHIATRIC Hx Substance Use: No - SURGICAL HISTORY Hx Surgeries: Yes - ANESTHESIA Hx Anesthesia: Yes Hx Anesthesia Reactions: No Hx Malignant Hyperthermia: No Meds Allergies/Adverse Reactions: Allergies Allergy/AdvReac Type Severity Reaction Status Date / Time No Known Allergies Allergy Verified 04/16/17 20:19 Physical Exam - Constitutional Appears: Non-toxic, No Acute Distress - Head Exam Head Exam: ATRAUMATIC, NORMOCEPHALIC - Eye Exam Eye Exam: EOMI, Normal appearance - ENT Exam ENT Exam: Mucous Membranes Dry - Neck Exam Neck exam: Positive for: Normal Inspection - Respiratory Exam Respiratory Exam: Clear to Auscultation Bilateral, NORMAL BREATHING PATTERN. absent: Respiratory Distress - Cardiovascular Exam Cardiovascular Exam: Tachycardia, +S1, +S2 - GI/Abdominal Exam GI & Abdominal Exam: Soft, Tenderness (diffuse; worst epigastric). absent: Distended, Guarding, Rigid - Extremities Exam Extremities exam: Positive for: normal inspection. Negative for: pedal edema, tenderness Additional comments: Slight upper extremity tremor - Back Exam Back exam: absent: CVA tenderness (L), CVA tenderness (R) - Neurological Exam Neurological exam: Alert, Oriented x3 - Psychiatric Exam Psychiatric exam: Normal Affect, Normal Mood - Skin Skin Exam: Dry, Normal Color, Warm Results - Vital Signs Recent Vital Signs: Last Vital Signs Temp 98 F 04/16/17 20:20 Pulse 103 H 04/16/17 22:21 Resp 19 04/16/17 22:21 BP 145/98 H 04/16/17 20:20 Pulse Ox 100 04/16/17 22:21 - Labs Result Diagrams: 04/17/17 04:05 04/17/17 04:05 Labs: Laboratory Results - last 24 hr 04/16/17 04/16/17 04/16/17 20:25 20:25 20:25 WBC 8.6 D RBC 4.28 L Hgb 14.7 Hct 42.6 MCV 99.7 H D MCH 34.4 H MCHC 34.5 RDW 15.1 H Plt Count 260 D MPV 7.9 Neut % (Auto) 75.0 Lymph % (Auto) 11.5 L [place] % (Auto) 11.4 H Eos % (Auto) 1.4 Baso % (Auto) 0.7 Neut # 6.4 Lymph # 1.0 [place] # 1.0 H Eos # 0.1 Baso # 0.1 PT 10.0 INR 0.9 APTT 32 Sodium Potassium Chloride Carbon Dioxide Anion Gap BUN Creatinine Est GFR ( Amer) Est GFR (Non-Af Amer) Random Glucose Calcium Total Bilirubin AST ALT Alkaline Phosphatase Total Protein Albumin Globulin Albumin/Globulin Ratio Lipase Urine Color Straw Urine Clarity Clear Urine pH 7.0 Ur Specific Walker 1.004 Urine Protein 2+ H Urine Glucose (UA) 1+ H Urine Ketones Negative Urine Blood Negative Urine Nitrate Negative Urine Bilirubin Negative Urine Urobilinogen Normal Ur Leukocyte Esterase Neg Urine WBC (Auto) < 1 Urine RBC (Auto) < 1 Urine Bacteria Rare Alcohol, Quantitative 04/16/17 20:25 WBC RBC Hgb Hct MCV MCH MCHC RDW Plt Count MPV Neut % (Auto) Lymph % (Auto) [place] % (Auto) Eos % (Auto) Baso % (Auto) Neut # Lymph # [place] # Eos # Baso # PT INR APTT Sodium 129 L Potassium 3.6 Chloride 91 L Carbon Dioxide 25 Anion Gap 17 BUN 3 L Creatinine 0.5 L Est GFR ( Amer) > 60 Est GFR (Non-Af Amer) > 60 Random Glucose 107 Calcium 9.2 Total Bilirubin 1.3 AST 54 ALT 30 Alkaline Phosphatase 85 Total Protein 9.3 H Albumin 5.0 D Globulin 4.2 H Albumin/Globulin Ratio 1.2 Lipase 153 Urine Color Urine Clarity Urine pH Ur Specific Walker Urine Protein Urine Glucose (UA) Urine Ketones Urine Blood Urine Nitrate Urine Bilirubin Urine Urobilinogen Ur Leukocyte Esterase Urine WBC (Auto) Urine RBC (Auto) Urine Bacteria Alcohol, Quantitative < 10 Assessment & Plan - Assessment and Plan (Free Text) Plan: Chronic Small Bowel Wall Thickening Admit to med/surg Pt with admission in 03/2017 for similar symptoms - given PO antibiotics at discharge which patient completed On admission: afebrile, normal wbc, tender to palpation in lower abd quadrants; UA negative CT abd/pelvis w/ IV contrast (04/17/17): Small bowel wall thickening w/o surrounding inflammation or fluid to confirm enteritis. 10.5 mm noncalcified nodule increased in size from 05/17/2016. Consider follow up based on risk. ( see full report) - CT A/P from prior admission (03/17): Segmental acute enteritis involving proximal small bowel. No ascites or mesenteric reaction. No free air/abscess. Lipase 153 [employer] Consult: Dr. 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 - f/u reccs NS @ 100cc/hr - 1 liter given in ED f/u Tissue transamglutinase f/u b12/folate/vitamin D f/u TIBC/Iron studies Acute hyponatremia Na 129 on admission - pt admits diarrhea EKG: showed NSR, no ST changes NS @ 100 cc/hr monitor BMP Diarrhea Admits 5-6 episodes daily for last 2 days f/u stool studies Lung nodule CT abd/pelvis w/ IV contrast:10.5 mm noncalcified nodule within left lung base, increased in size from 05/17/2016, yet unchanged from most recent examination in 03/2017. Consider [address] Chest at 3 months (see full report) Hx of alcohol abuse Patient admits last drink yesterday On admission: alcohol quantitative negative; AST/ALT WNL, Lipase 153 WNL; BP and HR elevated on admission Fall precautions/Seizure precautions CIWA scoring Q4H Ativan 1mg PO Q4H PRN Thiamine 100mg IV Once in ED FA/Thiamine/MV PO Daily Hypertension BP and HR well controlled on latest vital check continue home med amlodopine 10mg PO QD Proteinuria UA 2+ protein - seen as well in last admission Consider repeat UA, if persistent add OLGA/ARB Macrocytic Anemia MCV ~100 believed secondary to chronic alcohol use f/u TIBC/Iron studies Prophylactic measure GI: protonix 40mg ivp qd DVT: heparin 5000u sc q8H SCDs Aguilar Hodgson PGY-2 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 Bui <Harjit Bui - Last Filed: 04/18/17 22:03> Results - Vital Signs Recent Vital Signs: Last Vital Signs Temp 98.2 F 04/18/17 16:39 Pulse 78 04/18/17 16:39 Resp 20 04/18/17 16:39 BP 132/85 04/18/17 16:39 Pulse Ox 99 04/18/17 16:39 - Labs Result Diagrams: 04/18/17 08:28 04/18/17 08:28 Labs: Laboratory Results - last 24 hr 04/18/17 04/18/17 04/18/17 08:28 08:28 08:28 WBC 6.6 RBC 3.82 L Hgb 13.3 Hct 39.1 MCV 102.5 H D MCH 34.8 H MCHC 33.9 RDW 14.8 H Plt Count 233 MPV 8.0 Neut % (Auto) 48.9 L Lymph % (Auto) 25.7 [place] % (Auto) 10.7 H Eos % (Auto) 13.5 H Baso % (Auto) 1.2 Neut # 3.2 Lymph # 1.7 [place] # 0.7 Eos # 0.9 H Baso # 0.1 ESR 25 H Sodium 131 L Potassium 4.2 Chloride 95 L Carbon Dioxide 28 Anion Gap 12 BUN 6 L Creatinine 0.6 L Est GFR ( Amer) > 60 Est GFR (Non-Af Amer) > 60 Random Glucose 154 H Calcium 8.7 Magnesium 1.5 L Total Bilirubin 0.7 AST 67 H D ALT 31 Alkaline Phosphatase 88 C-React Prot High Sens 10.43 H Total Protein 8.2 Albumin 4.0 Globulin 4.2 H Albumin/Globulin Ratio 1.0 Attending/Attestation - Attestation I have personally seen and examined this patient.: Yes I have fully participated in the care of the patient.: Yes I have reviewed all pertinent clinical information: Yes Notes (Text): See note on day of admission.
[2017-04-16] MEDS ORDERED: Thiamine 100 mg/ml Inj IV ONE (22:51)
[2017-04-16] MEDS ORDERED: Sodium Chloride 0.9% 1,000 ML ONE (23:10)
--- NOTE | 2017-04-16 23:13 | CT ---
EXAM: CT Abdomen and Pelvis With Intravenous Contrast CLINICAL HISTORY: 56 years old, male; Pain; Abdominal pain; Generalized; Additional info: Abd pain TECHNIQUE: Axial computed tomography images of the abdomen and pelvis with intravenous contrast. All CT scans at this facility use one or more dose reduction techniques, viz.: automated exposure control; ma/kV adjustment per patient size (including targeted exams where dose is matched to indication; i.e. head); or iterative reconstruction technique. Coronal and sagittal reformatted images were created and reviewed. CONTRAST: 100 mL of omnipaque 300 administered intravenously. COMPARISON: CT - ABD PELVIS IV CONTRAST ONLY 2017-03-05 16:19 FINDINGS: Lower thorax: 10.5 mm noncalcified nodule within the left lung base, unchanged from the most recent examination performed 03/05/2017 and enlarged (as described) from 05/17/2016. ABDOMEN: Liver: No acute findings. Gallbladder and bile ducts: The gallbladder is decompressed. No calcified stones. No significant intra- or extrahepatic biliary ductal dilation. Pancreas: Enhances homogeneously. No ductal dilation. No discrete mass. Spleen: No acute findings. Adrenals: No acute findings. Kidneys and ureters: No acute findings. No hydronephrosis or renal calculi. No discrete solid mass. PELVIS: Bladder: The bladder is distended, but otherwise unremarkable. Reproductive: No acute findings. Appendix: The appendix is not definitively visualized, however no pericecal inflammatory change is identified to suggest the presence of acute appendicitis. ABDOMEN and PELVIS: Stomach and bowel: No obstruction. Small bowel wall thickening but no surrounding inflammation or fluid to confirm an acute enteritis. Peritoneum: No significant fluid collection. No free air. Lymph nodes: No pathologically enlarged lymph nodes. Vasculature: Unremarkable. Bones: No acute fracture. IMPRESSION: Small bowel wall thickening without surrounding inflammation or fluid to confirm an acute enteritis. 10.5 mm noncalcified nodule increased in size from 05/17/2016. For low-risk or high-risk patients consider a follow-up chest CT at 3 months. If unchanged consider an additional follow-up CT at 18-24 months. Alternatively (or additionally) PET/CT or tissue sampling could be performed.
[2017-04-16] MEDS ORDERED: Thiamine 100 mg/ml Inj ONE (23:14)
[2017-04-17] MEDS: Sodium Chloride 0.9% 1,000 ML IV SCH ×3 (01:51→21:16)
[2017-04-17 04:40] LABS: IRON 92 ug/dL (49-181)
[2017-04-17 04:43] LABS: BASO % 0.6 % (0.0-2.0); EOS # 0.5 K/uL (0.0-0.7); HEMATOCRIT 37.3 % (35.0-51.0); LYMPH # 1.2 K/uL (1.0-4.3); MEAN CELL VOLUME 100.3 fL (80.0-94.0); MEAN CORPUSCULAR HEMOGLOBIN 34.4 pg (27.0-31.0); MEAN CORPUSCULAR HGB CONC 34.3 g/dL (33.0-37.0); MEAN PLATELET VOLUME 8.1 fL (7.2-11.7); MONO # 0.7 K/uL (0.0-0.8); MONO % 10.4 % (0.0-10.0); NRBC % 0.1 % (0.0-2.0); RED CELL DISTRIBUTION WIDTH 14.8 % (11.5-14.5); WHITE BLOOD COUNT 6.7 K/uL (4.8-10.8)
[2017-04-17 05:26] LABS: VITAMIN D 25 OH TOTAL < 12.8 NG/ML (30.0-100.0)
[2017-04-17 05:31] LABS: ALB/GLOB RATIO 0.9 (1.0-2.1); ALKALINE PHOSPHATASE 82 U/L (38-126); ALT/SGPT 31 U/L (21-72); AST/SGOT 41 U/L (17-59); BILIRUBIN,TOTAL 0.9 mg/dL (0.2-1.3); BLOOD UREA NITROGEN 5 mg/dL (9-20); CALCIUM 8.1 mg/dl (8.6-10.4); CARBON DIOXIDE 24 mmol/L (22-30); CHLORIDE 96 mmol/L (98-107); GFR AFRICAN-AMERICAN > 60; GLUCOSE,RANDOM 103 mg/dL (75-110); MAGNESIUM 1.3 mg/dL (1.6-2.3); PHOSPHOROUS 2.9 mg/dL (2.5-4.5); SODIUM 131 mmol/L (132-148); TOTAL PROTEIN 7.7 g/dL (6.3-8.3)
[2017-04-17 06:02] LABS: FOLATE 8.7 ng/mL
--- NOTE | 2017-04-17 06:48 | CP.PCM.PN ---
Subjective - Date & Time of Evaluation Date of Evaluation: 04/16/17 Time of Evaluation: 21:00 - Subjective Subjective: Assessment * Recurrent abd pain, intermittent vomiting, diarrhea, poor appettite, with CT findings of small bowel mucosal thickening * Clinical dehydration * Alcoholism says intermittent 1-2 drinks either beer or lorin, but could be higher amount, at time of assessment not in withdrawal * Symptoms of tremors, bodyaches, chills, diarrhea, decreased appetite dd of viral illness, systemic symptoms of automimmune disease, alcohol withdrawal Plan * Supportive symptomatic care * GI w/u with ova, parasites, giardiasis, celiac, flu, * levels of vitd, b12, fa, to check for poor absorption * GI consult possible endoscopy as out patient * Thiamine, fa, prn ativan, watch for DTs. * see orders for detail. Objective - Vital Signs/Intake and Output Vital Signs (last 24 hours): Temp Pulse Resp BP Pulse Ox 98 F 87 17 135/80 98 04/17/17 04:32 04/17/17 04:31 04/17/17 04:31 04/17/17 04:31 04/17/17 04:31 - Medications Medications: Current Medications Amlodipine Besylate (Norvasc) 10 mg PO DAILY [facility] Folic Acid (Folic Acid) 1 mg PO DAILY [facility] Heparin Sodium (Porcine) (Heparin) 5,000 units SC Q8 [facility] Last Admin: 04/17/17 05:53 Dose: 5,000 units Sodium Chloride (Sodium Chloride 0.9%) 1,000 mls @ 100 mls/hr IV .Q10H [facility] Last Admin: 04/17/17 01:51 Dose: 100 mls/hr Lorazepam (Ativan) 1 mg PO Q4H PRN PRN Reason: Symptoms of alcohol withdrawl Multivitamins (Hexavitamin) 1 tab PO DAILY [facility] Ondansetron HCl (Zofran Inj) 4 mg IVP Q6H [facility] Last Admin: 04/17/17 01:52 Dose: 4 mg Pantoprazole Sodium (Protonix Inj) 40 mg IVP DAILY [facility] Thiamine HCl (Vitamin B1 Tab) 100 mg PO DAILY [facility] - Labs Labs: 04/17/17 04:05 04/17/17 04:05 PT 10.0 SECONDS (9.7-12.2) 04/16/17 20:25 INR 0.9 04/16/17 20:25 APTT 32 SECONDS (21-34) 04/16/17 20:25
[2017-04-17] MEDS: Multiple Vitamins Tab PO SCH (10:39)
[2017-04-17] MEDS ORDERED: Magnesium Sulfate 1 gm in D5W 1 GM/100 ML BAG IVPB ONE ×2 (11:09→12:00)
[2017-04-17] MEDS: Magnesium Sulfate 1 gm in D5W 1 GM/100 ML BAG IVPB SCH ×2 (11:09→12:00)
[2017-04-17] MEDS ORDERED: Sodium Chloride 0.9% 1,000 ML ONE (12:00)
--- NOTE | 2017-04-17 16:33 | CP.PCM.PN ---
<Stefan Moraes - Last Filed: 04/17/17 16:34> Subjective - Date & Time of Evaluation Date of Evaluation: 04/17/17 Time of Evaluation: 11:30 - Subjective Subjective: PGY-[address] Dominguez. No acute events noted overnight. Patient was seen and examined in the ED. He complained of right shoulder pain. He complained of abdominal tenderness. He also stated he was still having diarrhea. He denied chest pain, vomiting, fever , shortness of breath, hemoptysis. Objective - Vital Signs/Intake and Output Vital Signs (last 24 hours): Temp Pulse Resp BP Pulse Ox 98 F 82 18 134/82 99 04/17/17 04:32 04/17/17 08:39 04/17/17 08:39 04/17/17 08:39 04/17/17 08:39 - Medications Medications: Current Medications Amlodipine Besylate (Norvasc) 10 mg PO DAILY [facility] Last Admin: 04/17/17 10:39 Dose: 10 mg Cyanocobalamin (Vitamin B12 1000 Mcg/Ml Inj) 1,000 mcg IM ONCE ONE Stop: 04/18/17 10:48 Folic Acid (Folic Acid) 1 mg PO DAILY [facility] Last Admin: 04/17/17 10:38 Dose: 1 mg Heparin Sodium (Porcine) (Heparin) 5,000 units SC Q8 [facility] Last Admin: 04/17/17 15:56 Dose: 5,000 units Sodium Chloride (Sodium Chloride 0.9%) 1,000 mls @ 100 mls/hr IV .Q10H [facility] Last Admin: 04/17/17 12:00 Dose: 100 mls/hr Lorazepam (Ativan) 1 mg PO Q4H PRN PRN Reason: Symptoms of alcohol withdrawl Multivitamins (Hexavitamin) 1 tab PO DAILY [facility] Last Admin: 04/17/17 10:39 Dose: 1 tab Ondansetron HCl (Zofran Inj) 4 mg IVP Q6H [facility] Last Admin: 04/17/17 15:48 Dose: Not Given Pantoprazole Sodium (Protonix Inj) 40 mg IVP DAILY [facility] Last Admin: 04/17/17 10:39 Dose: 40 mg Thiamine HCl (Vitamin B1 Tab) 100 mg PO DAILY [facility] Last Admin: 04/17/17 11:57 Dose: 100 mg - Labs Labs: 04/17/17 04:05 04/17/17 04:05 PT 10.0 SECONDS (9.7-12.2) 04/16/17 20:25 INR 0.9 04/16/17 20:25 APTT 32 SECONDS (21-34) 04/16/17 20:25 - Additional Findings Additional findings: - Constitutional Appears: Non-toxic, No Acute Distress - Head Exam Head Exam: ATRAUMATIC, NORMOCEPHALIC - Eye Exam Eye Exam: EOMI, Normal appearance - ENT Exam ENT Exam: Mucous Membranes Dry - Neck Exam Neck exam: Positive for: Normal Inspection - Respiratory Exam Respiratory Exam: Clear to Auscultation Bilateral, NORMAL BREATHING PATTERN. absent: Respiratory Distress - Cardiovascular Exam Cardiovascular Exam: Tachycardia, +S1, +S2 - GI/Abdominal Exam GI & Abdominal Exam: Soft, Tenderness (diffuse; worst epigastric). absent: Distended, Guarding, Rigid - Extremities Exam Extremities exam: Positive for: normal inspection. Negative for: pedal edema, tenderness Additional comments: Slight upper extremity tremor - Back Exam Back exam: absent: CVA tenderness (L), CVA tenderness (R) - Neurological Exam Neurological exam: Alert, Oriented x3 - Psychiatric Exam Psychiatric exam: Normal Affect, Normal Mood - Skin Skin Exam: Dry, Normal Color, Warm Assessment and Plan - Assessment and Plan (Free Text) Assessment: Chronic Small Bowel Wall Thickening Admit to med/surg Pt with admission in 03/2017 for similar symptoms - given PO antibiotics at discharge which patient completed On admission: afebrile, normal wbc, tender to palpation in lower abd quadrants; UA negative Lipase 153 Gasket Inspector Consult: Dr. 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 10.5 mm noncalcified nodule increased in size from 05/17/2016. Consider follow up based on risk. ( see full report) CT A/P from prior admission (03/17): Segmental acute enteritis involving proximal small bowel. No ascites or mesenteric reaction. No free air/abscess. Right Shoulder Pain F/U shoulder x-ray official report Acute hyponatremia Na 129 on admission - pt admits diarrhea EKG: showed NSR, no ST changes NS @ 100 cc/hr monitor BMP Diarrhea Admits 5-6 episodes daily for last 2 days Stool Leukocytes Negative Possibly 2/2 to alcohol withdrawal Lung nodule CT abd/pelvis w/ IV contrast:10.5 mm noncalcified nodule within left lung base, increased in size from 05/17/2016, yet unchanged from most recent examination in 03/2017. Consider [address] Chest at 3 months (see full report) Hx of alcohol abuse Patient admits last drink yesterday On admission: alcohol quantitative negative; AST/ALT WNL, Lipase 153 WNL; BP and HR elevated on admission Fall precautions/Seizure precautions CIWA scoring Q4H Ativan 1mg PO Q4H PRN Thiamine 100mg IV Once in ED FA/Thiamine/MV PO Daily Hypertension BP and HR well controlled on latest vital check continue home med amlodopine 10mg PO QD Proteinuria UA 2+ protein - seen as well in last admission Consider repeat UA, if persistent add OLGA/ARB Macrocytic Anemia MCV ~100 believed secondary to chronic alcohol use TIBC/Iron Studies WNL Prophylactic measure GI: protonix 40mg ivp qd DVT: heparin 5000u sc q8H SCDs Diet: Liquid Diet <Dotty Dominguez V - Last Filed: 04/19/17 21:48> Objective - Vital Signs/Intake and Output Vital Signs (last 24 hours): Temp Pulse Resp BP Pulse Ox 97.9 F 78 20 126/84 97 04/19/17 16:04 04/19/17 16:04 04/19/17 16:04 04/19/17 16:04 04/19/17 16:04 Intake and Output: 04/19/17 04/20/17 18:59 06:59 Intake Total 1400 Balance 1400 - Medications Medications: Current Medications Acetaminophen (Tylenol 325mg Tab) 650 mg PO Q6 PRN PRN Reason: Pain, moderate (4-7) Last Admin: 04/18/17 16:44 Dose: 650 mg Albuterol/Ipratropium (Duoneb 3 Mg/0.5 Mg (3 Ml) Ud) 3 ml INH RQ6 [facility] Last Admin: 04/19/17 19:31 Dose: 3 ml Amlodipine Besylate (Norvasc) 10 mg PO DAILY [facility] Last Admin: 04/19/17 09:35 Dose: 10 mg Ergocalciferol (Drisdol 50,000 Intl Units Cap) 1 cap PO Q7D [facility] Last Admin: 04/17/17 22:28 Dose: 1 cap Folic Acid (Folic Acid) 1 mg PO DAILY [facility] Last Admin: 04/19/17 09:34 Dose: 1 mg Heparin Sodium (Porcine) (Heparin) 5,000 units SC Q8 [facility] Last Admin: 04/19/17 21:30 Dose: 5,000 units Sodium Chloride (Sodium Chloride 0.9%) 1,000 mls @ 100 mls/hr IV .Q10H [facility] Last Admin: 04/19/17 13:25 Dose: 100 mls/hr Lisinopril (Zestril) 5 mg PO DAILY [facility] Lorazepam (Ativan) 1 mg PO Q4H PRN PRN Reason: Symptoms of alcohol withdrawl Multivitamins (Hexavitamin) 1 tab PO DAILY [facility] Last Admin: 04/19/17 09:34 Dose: 1 tab Nicotine (Nicoderm Cq) 1 patch TD DAILY [facility] Last Admin: 04/19/17 14:50 Dose: 1 patch Ondansetron HCl (Zofran Inj) 4 mg IVP Q6H [facility] Last Admin: 04/19/17 20:26 Dose: 4 mg Pantoprazole Sodium (Protonix Inj) 40 mg IVP DAILY [facility] Last Admin: 04/19/17 09:36 Dose: 40 mg Promethazine HCl/Codeine (Phenergan/Codeine Oral Syrup) 5 ml PO Q4 PRN PRN Reason: Cough Last Admin: 04/19/17 09:33 Dose: 5 ml Thiamine HCl (Vitamin B1 Tab) 100 mg PO DAILY [facility] Last Admin: 04/19/17 09:34 Dose: 100 mg - Labs Labs: 04/19/17 07:42 04/19/17 07:42 PT 10.0 SECONDS (9.7-12.2) 04/16/17 20:25 INR 0.9 04/16/17 20:25 APTT 32 SECONDS (21-34) 04/16/17 20:25 Attending/Attestation - Attestation I have personally seen and examined this patient.: Yes I have fully participated in the care of the patient.: Yes I have reviewed all pertinent clinical information, including history, physical exam and plan: Yes Notes (Text): This is late computer entry for 04/17/17. Patient seen, examined and case discussed with day-time resident. Patient seen in the Emergency Room awaiting a bed for the floors. Patient reports right shoulder pains, abdominal pains, and reports diarrhea. patient ordered for liquid diet. patient is not tremulous on exam. Patient ordered for B12 injection shot for low B12. Pending GI consult. Assessment/Plan 1) Gastroenteritis Chronic Small Bowel Wall Thickening On CT Scan * Admit to med/surg * Pt with admission in 03/2017 for similar symptoms * On admission: afebrile, normal wbc, tender to palpation in lower abd quadrants ; UA negative * CT abd/pelvis w/ IV contrast (04/17/17): Small bowel wall thickening w/o surrounding inflammation or fluid to confirm enteritis. 10.5 mm noncalcified nodule increased in size from 05/17/2016. Consider follow up based on risk. ( see full report) * CT A/P from prior admission (03/17): Segmental acute enteritis involving proximal small bowel. No ascites or mesenteric reaction. No free air/abscess. * Lipase 153 * Gasket Inspector Consult: Dr. 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 * F/u bowel movements * CARL: negative, stool leukocytes: negative, stool culture, stool ova and parasite * Blood alcohol <10 * f/u tissue transamglutinase, Giardia * iron studies are normal; note: patient is not anemic * vitamin D is Low 2) Hyponatremia * Mild * Monitor Na+ * on NS 100cc/hr * patient is having diarrhea 3) Diarrhea * Admits 5-6 episodes daily for last 2 days * Pending: stool culture, ova and parasite * Ova and Parasite: none identified 4) Lung nodule * CT abd/pelvis w/ IV contrast:10.5 mm noncalcified nodule within left lung base , increased in size from 05/17/2016, yet unchanged from most recent examination in 03/2017. Consider [address] Chest at 3 months (see full report) 5) Hx of alcohol use, chronic * Ativan 1mg PO Q4H PRN * Thiamine 100mg PO daily * MV1 1 tab PO daily * Folic acid 1mg PO daily 6) Hypertension * Norvasc 10mg PO daily * Monitor vital signs 7) Vitamin B12 Deficiency * B12 1000mcg IM 04/18/14 for the next 4 weeks * influencing etiology: vegetarian, alcohol use 8) Vitamin D Deficiency * Vitamin D <`2.8 * will need Vitamin D 50,000 ICU 1 cap PO Q 7 day for 8-12 weeks 9) Proteinuria * Repeat UA; possible may need olga/or arb 10) Shoulder Pain, Right * Order for right shoulder xray 11) Low Magnesium * replete and monitor 12) Prophylactic measure * GI: protonix 40mg ivp qd * DVT: heparin 5000u sc q8H * SCDs * PT eval * Start on Liquid diet
--- NOTE | 2017-04-17 16:52 | CP.PCM.CON ---
History of Present Illness - History of Present Illness History of Present Illness: CC: Service GI consult for abdominal pain and "enteritis" HPI: One of multiple admissions and ER presentations for this Gentleman with severe intermittent mid abdominal pain and diarrhea for past [address] scans have been done in the past year, usually without significant GI findings, but now with SB enteritis suggested. Patient is a frequent alcohol drinker. He denies blood in stool. feels cold and total body aches. Denies travel history. Labs are usually normal. No Lipases seen in computer. Review of Systems - Constitutional Constitutional: As Per HPI, Chills, Malaise, Weakness Past Patient History - Infectious Disease Hx of Infectious Diseases: None - Tetanus Immunizations Tetanus Immunization: Unknown - Past Medical History & Family History Past Medical History?: Yes - Past Social History Smoking Status: Light Smoker < 10 Cigarettes Daily - CARDIAC Hx Hypertension: Yes - PULMONARY Hx Asthma: Yes - NEUROLOGICAL Hx Neurological Disorder: No - HEENT Hx HEENT Problems: No - RENAL Hx Chronic Kidney Disease: Yes Hx Kidney Stones: Yes - ENDOCRINE/METABOLIC Hx Endocrine Disorders: No - HEMATOLOGICAL/ONCOLOGICAL Hx Blood Disorders: No - INTEGUMENTARY Hx Dermatological Problems: No - MUSCULOSKELETAL/RHEUMATOLOGICAL Hx Arthritis: Yes Hx Rheumatoid Arthritis: Yes - GASTROINTESTINAL Hx Gastrointestinal Disorders: Yes Hx Constipation: Yes - GENITOURINARY/GYNECOLOGICAL Hx Genitourinary Disorders: No - PSYCHIATRIC Hx Substance Use: No - SURGICAL HISTORY Hx Surgeries: Yes - ANESTHESIA Hx Anesthesia: Yes Hx Anesthesia Reactions: No Hx Malignant Hyperthermia: No Meds Allergies/Adverse Reactions: Allergies Allergy/AdvReac Type Severity Reaction Status Date / Time No Known Allergies Allergy Verified 04/16/17 20:19 - Medications Medications: Current Medications Amlodipine Besylate (Norvasc) 10 mg PO DAILY [facility] Last Admin: 04/17/17 10:39 Dose: 10 mg Cyanocobalamin (Vitamin B12 1000 Mcg/Ml Inj) 1,000 mcg IM ONCE ONE Stop: 04/18/17 10:48 Folic Acid (Folic Acid) 1 mg PO DAILY [facility] Last Admin: 04/17/17 10:38 Dose: 1 mg Heparin Sodium (Porcine) (Heparin) 5,000 units SC Q8 [facility] Last Admin: 04/17/17 15:56 Dose: 5,000 units Sodium Chloride (Sodium Chloride 0.9%) 1,000 mls @ 100 mls/hr IV .Q10H [facility] Last Admin: 04/17/17 12:00 Dose: 100 mls/hr Lorazepam (Ativan) 1 mg PO Q4H PRN PRN Reason: Symptoms of alcohol withdrawl Multivitamins (Hexavitamin) 1 tab PO DAILY [facility] Last Admin: 04/17/17 10:39 Dose: 1 tab Ondansetron HCl (Zofran Inj) 4 mg IVP Q6H [facility] Last Admin: 04/17/17 15:48 Dose: Not Given Pantoprazole Sodium (Protonix Inj) 40 mg IVP DAILY [facility] Last Admin: 04/17/17 10:39 Dose: 40 mg Thiamine HCl (Vitamin B1 Tab) 100 mg PO DAILY [facility] Last Admin: 04/17/17 11:57 Dose: 100 mg Physical Exam - Constitutional Appears: Chronically Ill - Head Exam Head Exam: NORMOCEPHALIC - Eye Exam Eye Exam: absent: Scleral icterus - ENT Exam ENT Exam: Normal Exam - Neck Exam Neck exam: Positive for: Normal Inspection - Respiratory Exam Respiratory Exam: NORMAL BREATHING PATTERN - Cardiovascular Exam Cardiovascular Exam: REGULAR RHYTHM - GI/Abdominal Exam GI & Abdominal Exam: Soft. absent: Distended, Guarding, Mass, Rebound, Tenderness Results - Vital Signs Recent Vital Signs: Last Vital Signs Temp 98 F 04/17/17 04:32 Pulse 82 04/17/17 08:39 Resp 18 04/17/17 08:39 BP 134/82 04/17/17 08:39 Pulse Ox 99 04/17/17 08:39 - Labs Result Diagrams: 04/17/17 04:05 04/17/17 04:05 Labs: Laboratory Results - last 24 hr 04/16/17 04/16/17 04/16/17 20:25 20:25 20:25 WBC 8.6 D RBC 4.28 L Hgb 14.7 Hct 42.6 MCV 99.7 H D MCH 34.4 H MCHC 34.5 RDW 15.1 H Plt Count 260 D MPV 7.9 Neut % (Auto) 75.0 Lymph % (Auto) 11.5 L Ashley % (Auto) 11.4 H Eos % (Auto) 1.4 Baso % (Auto) 0.7 Neut # 6.4 Lymph # 1.0 Ashley # 1.0 H Eos # 0.1 Baso # 0.1 ESR PT 10.0 INR 0.9 APTT 32 Sodium Potassium Chloride Carbon Dioxide Anion Gap BUN Creatinine Est GFR ( Amer) Est GFR (Non-Af Amer) Random Glucose Calcium Phosphorus Magnesium Iron TIBC % Saturation Total Bilirubin AST ALT Alkaline Phosphatase C-React Prot High Sens Total Protein Albumin Globulin Albumin/Globulin Ratio Lipase Vitamin B12 25-OH Vitamin D Total Folate Urine Color Straw Urine Clarity Clear Urine pH 7.0 Ur Specific [place] 1.004 Urine Protein 2+ H Urine Glucose (UA) 1+ H Urine Ketones Negative Urine Blood Negative Urine Nitrate Negative Urine Bilirubin Negative Urine Urobilinogen Normal Ur Leukocyte Esterase Neg Urine WBC (Auto) < 1 Urine RBC (Auto) < 1 Urine Bacteria Rare Stool Leukocytes, Qual Alcohol, Quantitative CARL 6 Profile Influenza Typ A,B (EIA) 04/16/17 04/17/17 04/17/17 20:25 04:05 04:05 WBC 6.7 RBC 3.71 L Hgb 12.8 Hct 37.3 MCV 100.3 H MCH 34.4 H MCHC 34.3 RDW 14.8 H Plt Count 199 MPV 8.1 Neut % (Auto) 63.0 Lymph % (Auto) 18.0 L Ashley % (Auto) 10.4 H Eos % (Auto) 8.0 H Baso % (Auto) 0.6 Neut # 4.2 Lymph # 1.2 Ashley # 0.7 Eos # 0.5 Baso # 0.0 ESR 30 H PT INR APTT Sodium 129 L 131 L Potassium 3.6 4.0 Chloride 91 L 96 L Carbon Dioxide 25 24 Anion Gap 17 14 BUN 3 L 5 L Creatinine 0.5 L 0.6 L Est GFR ( Amer) > 60 > 60 Est GFR (Non-Af Amer) > 60 > 60 Random Glucose 107 103 Calcium 9.2 8.1 L Phosphorus 2.9 Magnesium 1.3 L Iron TIBC % Saturation Total Bilirubin 1.3 0.9 AST 54 41 ALT 30 31 Alkaline Phosphatase 85 82 C-React Prot High Sens Total Protein 9.3 H 7.7 Albumin 5.0 D 3.8 Globulin 4.2 H 4.0 H Albumin/Globulin Ratio 1.2 0.9 L Lipase 153 Vitamin B12 206 L 25-OH Vitamin D Total Folate 8.7 Urine Color Urine Clarity Urine pH Ur Specific [place] Urine Protein Urine Glucose (UA) Urine Ketones Urine Blood Urine Nitrate Urine Bilirubin Urine Urobilinogen Ur Leukocyte Esterase Urine WBC (Auto) Urine RBC (Auto) Urine Bacteria Stool Leukocytes, Qual Alcohol, Quantitative < 10 CARL 6 Profile Influenza Typ A,B (EIA) 04/17/17 04/17/17 04/17/17 04:09 04:49 07:02 WBC RBC Hgb Hct MCV MCH MCHC RDW Plt Count MPV Neut % (Auto) Lymph % (Auto) Ashley % (Auto) Eos % (Auto) Baso % (Auto) Neut # Lymph # Ashley # Eos # Baso # ESR PT INR APTT Sodium Potassium Chloride Carbon Dioxide Anion Gap BUN Creatinine Est GFR ( Amer) Est GFR (Non-Af Amer) Random Glucose Calcium Phosphorus Magnesium Iron 92 TIBC 290 % Saturation 32 Total Bilirubin AST ALT Alkaline Phosphatase C-React Prot High Sens Total Protein Albumin Globulin Albumin/Globulin Ratio Lipase Vitamin B12 25-OH Vitamin D Total < 12.8 L Folate Urine Color Urine Clarity Urine pH Ur Specific [place] Urine Protein Urine Glucose (UA) Urine Ketones Urine Blood Urine Nitrate Urine Bilirubin Urine Urobilinogen Ur Leukocyte Esterase Urine WBC (Auto) Urine RBC (Auto) Urine Bacteria Stool Leukocytes, Qual Negative Alcohol, Quantitative CARL 6 Profile Influenza Typ A,B (EIA) Negative for flu a/b 04/17/17 04/17/17 09:02 09:03 WBC RBC Hgb Hct MCV MCH MCHC RDW Plt Count MPV Neut % (Auto) Lymph % (Auto) Ashley % (Auto) Eos % (Auto) Baso % (Auto) Neut # Lymph # Ashley # Eos # Baso # ESR PT INR APTT Sodium Potassium Chloride Carbon Dioxide Anion Gap BUN Creatinine Est GFR ( Amer) Est GFR (Non-Af Amer) Random Glucose Calcium Phosphorus Magnesium Iron TIBC % Saturation Total Bilirubin AST ALT Alkaline Phosphatase C-React Prot High Sens 12.45 H Total Protein Albumin Globulin Albumin/Globulin Ratio Lipase Vitamin B12 25-OH Vitamin D Total Folate Urine Color Urine Clarity Urine pH Ur Specific [place] Urine Protein Urine Glucose (UA) Urine Ketones Urine Blood Urine Nitrate Urine Bilirubin Urine Urobilinogen Ur Leukocyte Esterase Urine WBC (Auto) Urine RBC (Auto) Urine Bacteria Stool Leukocytes, Qual Alcohol, Quantitative CARL 6 Profile Negative Influenza Typ A,B (EIA) Assessment & Plan (1) Abdominal pain Assessment and Plan: R/o Chronic pancreatitis R/O Peptic pain R/O functional R/O ETOH related Rec: PPI, fecal Elastase and enteric pathogens, Lipase, consider trial of Panc enzyme supplementation Status: Acute
--- NOTE | 2017-04-17 16:56 | RAD ---
PROCEDURE: Radiographs of the Right Shoulder HISTORY: pain with abduction COMPARISON: No prior. FINDINGS: BONES: Examination limited due to patient motion. No evidence of fracture. No dislocation. JOINTS: Normal. Glenohumeral and acromioclavicular joints preserved. No osteoarthritis. SOFT TISSUES: Normal. OTHER FINDINGS: None. IMPRESSION: Unremarkable. Limited examination due to patient motion.
[2017-04-17] MEDS ORDERED: Ergocalciferol 50,000 Intl Units Cap PO SCH ×2 (20:00→22:00)
[2017-04-18] MEDS: Sodium Chloride 0.9% 1,000 ML IV SCH ×3 (05:39→17:49)
--- NOTE | 2017-04-18 05:54 | CP.PCM.PN ---
<DavischiloAmadeochamp - Last Filed: 04/18/17 05:52> Subjective - Date & Time of Evaluation Date of Evaluation: 04/18/17 Time of Evaluation: 05:52 - Subjective Subjective: No acute events noted overnight. Patient was seen and examined in the ED. He still complains of right shoulder pain. He also complained of abdominal tenderness. He also stated he was still having diarrhea. He denied chest pain, vomiting, fever, shortness of breath, hemoptysis. Objective - Vital Signs/Intake and Output Vital Signs (last 24 hours): Temp Pulse Resp BP Pulse Ox 98.6 F 72 20 137/79 99 04/18/17 00:00 04/18/17 00:00 04/18/17 00:00 04/18/17 00:00 04/18/17 00:00 Intake and Output: 04/17/17 04/18/17 18:59 06:59 Intake Total 800 Balance 800 - Medications Medications: Current Medications Amlodipine Besylate (Norvasc) 10 mg PO DAILY [facility] Last Admin: 04/17/17 10:39 Dose: 10 mg Cyanocobalamin (Vitamin B12 1000 Mcg/Ml Inj) 1,000 mcg IM ONCE ONE Stop: 04/18/17 10:48 Ergocalciferol (Drisdol 50,000 Intl Units Cap) 1 cap PO Q7D [facility] Last Admin: 04/17/17 22:28 Dose: 1 cap Folic Acid (Folic Acid) 1 mg PO DAILY [facility] Last Admin: 04/17/17 10:38 Dose: 1 mg Heparin Sodium (Porcine) (Heparin) 5,000 units SC Q8 [facility] Last Admin: 04/18/17 05:39 Dose: 5,000 units Sodium Chloride (Sodium Chloride 0.9%) 1,000 mls @ 100 mls/hr IV .Q10H [facility] Last Admin: 04/18/17 05:39 Dose: 100 mls/hr Lorazepam (Ativan) 1 mg PO Q4H PRN PRN Reason: Symptoms of alcohol withdrawl Multivitamins (Hexavitamin) 1 tab PO DAILY [facility] Last Admin: 04/17/17 10:39 Dose: 1 tab Ondansetron HCl (Zofran Inj) 4 mg IVP Q6H [facility] Last Admin: 04/18/17 01:39 Dose: 4 mg Pantoprazole Sodium (Protonix Inj) 40 mg IVP DAILY [facility] Last Admin: 04/17/17 10:39 Dose: 40 mg Thiamine HCl (Vitamin B1 Tab) 100 mg PO DAILY [facility] Last Admin: 04/17/17 11:57 Dose: 100 mg - Labs Labs: 04/17/17 04:05 04/17/17 04:05 PT 10.0 SECONDS (9.7-12.2) 04/16/17 20:25 INR 0.9 04/16/17 20:25 APTT 32 SECONDS (21-34) 04/16/17 20:25 - Additional Findings Additional findings: - Constitutional Appears: Non-toxic, No Acute Distress - Head Exam Head Exam: ATRAUMATIC, NORMOCEPHALIC - Eye Exam Eye Exam: EOMI, Normal appearance - ENT Exam ENT Exam: Mucous Membranes Dry - Neck Exam Neck exam: Positive for: Normal Inspection - Respiratory Exam Respiratory Exam: Clear to Auscultation Bilateral, NORMAL BREATHING PATTERN. absent: Respiratory Distress - Cardiovascular Exam Cardiovascular Exam: Tachycardia, +S1, +S2 - GI/Abdominal Exam GI & Abdominal Exam: Soft, Tenderness (diffuse; worst epigastric). absent: Distended, Guarding, Rigid - Extremities Exam Extremities exam: Positive for: normal inspection. Negative for: pedal edema, tenderness Additional comments: Slight upper extremity tremor - Back Exam Back exam: absent: CVA tenderness (L), CVA tenderness (R) - Neurological Exam Neurological exam: Alert, Oriented x3 - Psychiatric Exam Psychiatric exam: Normal Affect, Normal Mood - Skin Skin Exam: Dry, Normal Color, Warm Assessment and Plan - Assessment and Plan (Free Text) Assessment: Chronic Small Bowel Wall Thickening Admit to med/surg Pt with admission in 03/2017 for similar symptoms - given PO antibiotics at discharge which patient completed On admission: afebrile, normal wbc, tender to palpation in lower abd quadrants; UA negative 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 10.5 mm noncalcified nodule increased in size from 05/17/2016. Consider follow up based on risk. ( see full report) CT A/P from prior admission (03/17): Segmental acute enteritis involving proximal small bowel. No ascites or mesenteric reaction. No free air/abscess. Right Shoulder Pain F/U shoulder x-ray official report Acute hyponatremia Na 129 on admission - pt admits diarrhea EKG: showed NSR, no ST changes NS @ 100 cc/hr monitor BMP Diarrhea Admits 5-6 episodes daily for last 2 days Stool Leukocytes Negative Possibly 2/2 to alcohol withdrawal Lung nodule CT abd/pelvis w/ IV contrast:10.5 mm noncalcified nodule within left lung base, increased in size from 05/17/2016, yet unchanged from most recent examination in 03/2017. Consider [address] Chest at 3 months (see full report) Hx of alcohol abuse Patient admits last drink yesterday On admission: alcohol quantitative negative; AST/ALT WNL, Lipase 153 WNL; BP and HR elevated on admission Fall precautions/Seizure precautions CIWA scoring Q4H Ativan 1mg PO Q4H PRN Thiamine 100mg IV Once in ED FA/Thiamine/MV PO Daily Hypertension BP and HR well controlled on latest vital check continue home med amlodopine 10mg PO QD Proteinuria UA 2+ protein - seen as well in last admission Consider repeat UA, if persistent add OLGA/ARB Macrocytic Anemia MCV ~100 believed secondary to chronic alcohol use TIBC/Iron Studies WNL Prophylactic measure GI: protonix 40mg ivp qd DVT: heparin 5000u sc q8H SCDs Diet: Liquid Diet <Juan Schuster - Last Filed: 04/18/17 15:50> Objective - Vital Signs/Intake and Output Vital Signs (last 24 hours): Temp Pulse Resp BP Pulse Ox 98.3 F 81 20 149/88 98 04/18/17 08:09 04/18/17 08:09 04/18/17 08:09 04/18/17 08:09 04/18/17 08:09 Intake and Output: 04/18/17 04/18/17 06:59 18:59 Intake Total 1999 1220 Balance 1999 1220 - Medications Medications: Current Medications Acetaminophen (Tylenol 325mg Tab) 650 mg PO Q6 PRN PRN Reason: Pain, moderate (4-7) Last Admin: 04/18/17 09:28 Dose: 650 mg Amlodipine Besylate (Norvasc) 10 mg PO DAILY [facility] Last Admin: 04/18/17 09:30 Dose: 10 mg Ergocalciferol (Drisdol 50,000 Intl Units Cap) 1 cap PO Q7D [facility] Last Admin: 04/17/17 22:28 Dose: 1 cap Folic Acid (Folic Acid) 1 mg PO DAILY [facility] Last Admin: 04/18/17 09:30 Dose: 1 mg Heparin Sodium (Porcine) (Heparin) 5,000 units SC Q8 [facility] Last Admin: 04/18/17 14:13 Dose: 5,000 units Sodium Chloride (Sodium Chloride 0.9%) 1,000 mls @ 100 mls/hr IV .Q10H [facility] Last Admin: 04/18/17 08:37 Dose: Not Given Lorazepam (Ativan) 1 mg PO Q4H PRN PRN Reason: Symptoms of alcohol withdrawl Multivitamins (Hexavitamin) 1 tab PO DAILY [facility] Last Admin: 04/18/17 09:30 Dose: 1 tab Ondansetron HCl (Zofran Inj) 4 mg IVP Q6H [facility] Last Admin: 04/18/17 13:35 Dose: Not Given Pantoprazole Sodium (Protonix Inj) 40 mg IVP DAILY [facility] Last Admin: 04/18/17 09:30 Dose: 40 mg Promethazine HCl/Codeine (Phenergan/Codeine Oral Syrup) 5 ml PO Q4 PRN PRN Reason: Cough Last Admin: 04/18/17 14:13 Dose: 5 ml Thiamine HCl (Vitamin B1 Tab) 100 mg PO DAILY [facility] Last Admin: 04/18/17 09:30 Dose: 100 mg - Labs Labs: 04/18/17 08:28 04/18/17 08:28 PT 10.0 SECONDS (9.7-12.2) 04/16/17 20:25 INR 0.9 04/16/17 20:25 APTT 32 SECONDS (21-34) 04/16/17 20:25 Attending/Attestation - Attestation I have personally seen and examined this patient.: Yes I have fully participated in the care of the patient.: Yes I have reviewed all pertinent clinical information, including history, physical exam and plan: Yes Notes (Text): Patient was seen and examined,complaining of abdominal pain and diarrhea continue liquid diet and follow stool test,GI follow up appreciated I agree with the resident's assessment and the plan.
[2017-04-18 08:41] LABS: BASO # 0.1 K/uL (0.0-0.2); BASO % 1.2 % (0.0-2.0); EOS # 0.9 K/uL (0.0-0.7); EOS % 13.5 % (0.0-4.0); HEMATOCRIT 39.1 % (35.0-51.0); LYMPH # 1.7 K/uL (1.0-4.3); LYMPH % 25.7 % (20.0-40.0); MEAN CORPUSCULAR HEMOGLOBIN 34.8 pg (27.0-31.0); MEAN CORPUSCULAR HGB CONC 33.9 g/dL (33.0-37.0); MONO # 0.7 K/uL (0.0-0.8); MONO % 10.7 % (0.0-10.0); NRBC % 0.1 % (0.0-2.0); RED CELL DISTRIBUTION WIDTH 14.8 % (11.5-14.5); WHITE BLOOD COUNT 6.6 K/uL (4.8-10.8)
[2017-04-18 08:43] LABS: MEAN CELL VOLUME 102.5 fL (80.0-94.0)
[2017-04-18 09:04] LABS: ALKALINE PHOSPHATASE 88 U/L (38-126); ALT/SGPT 31 U/L (21-72); AST/SGOT 67 U/L (17-59); BILIRUBIN,TOTAL 0.7 mg/dL (0.2-1.3); BLOOD UREA NITROGEN 6 mg/dL (9-20); CALCIUM 8.7 mg/dl (8.6-10.4); CARBON DIOXIDE 28 mmol/L (22-30); CHLORIDE 95 mmol/L (98-107); GFR AFRICAN-AMERICAN > 60; GLUCOSE,RANDOM 154 mg/dL (75-110); MAGNESIUM 1.5 mg/dL (1.6-2.3); POTASSIUM 4.2 mmol/L (3.6-5.2); SODIUM 131 mmol/L (132-148); TOTAL PROTEIN 8.2 g/dL (6.3-8.3)
[2017-04-18] MEDS ORDERED: Magnesium Sulfate 1 gm in D5W 1 GM/100 ML BAG IVPB ONE (09:15)
[2017-04-18] MEDS: Promethazine/Cod 6.25mg-10mg/5ml Syr UD PO PRN ×3 (09:29→21:19)
[2017-04-18] MEDS: Multiple Vitamins Tab PO SCH (09:30)
--- NOTE | 2017-04-18 11:48 | CP.PCM.PN ---
Subjective - Date & Time of Evaluation Date of Evaluation: 04/18/17 Time of Evaluation: 11:47 - Subjective Subjective: GI Service follow up for abdominal pain C/O bilat rib pains, cough, loose BMs B12 deficient Objective - Vital Signs/Intake and Output Vital Signs (last 24 hours): Temp Pulse Resp BP Pulse Ox 98.3 F 81 20 149/88 98 04/18/17 08:09 04/18/17 08:09 04/18/17 08:09 04/18/17 08:09 04/18/17 08:09 Intake and Output: 04/18/17 04/18/17 06:59 18:59 Intake Total 1999 Balance 1999 - Medications Medications: Current Medications Acetaminophen (Tylenol 325mg Tab) 650 mg PO Q6 PRN PRN Reason: Pain, moderate (4-7) Last Admin: 04/18/17 09:28 Dose: 650 mg Amlodipine Besylate (Norvasc) 10 mg PO DAILY [facility] Last Admin: 04/18/17 09:30 Dose: 10 mg Ergocalciferol (Drisdol 50,000 Intl Units Cap) 1 cap PO Q7D [facility] Last Admin: 04/17/17 22:28 Dose: 1 cap Folic Acid (Folic Acid) 1 mg PO DAILY [facility] Last Admin: 04/18/17 09:30 Dose: 1 mg Heparin Sodium (Porcine) (Heparin) 5,000 units SC Q8 [facility] Last Admin: 04/18/17 05:39 Dose: 5,000 units Sodium Chloride (Sodium Chloride 0.9%) 1,000 mls @ 100 mls/hr IV .Q10H [facility] Last Admin: 04/18/17 08:37 Dose: Not Given Lorazepam (Ativan) 1 mg PO Q4H PRN PRN Reason: Symptoms of alcohol withdrawl Multivitamins (Hexavitamin) 1 tab PO DAILY [facility] Last Admin: 04/18/17 09:30 Dose: 1 tab Ondansetron HCl (Zofran Inj) 4 mg IVP Q6H [facility] Last Admin: 04/18/17 07:36 Dose: Not Given Pantoprazole Sodium (Protonix Inj) 40 mg IVP DAILY [facility] Last Admin: 04/18/17 09:30 Dose: 40 mg Promethazine HCl/Codeine (Phenergan/Codeine Oral Syrup) 5 ml PO Q4 PRN PRN Reason: Cough Last Admin: 04/18/17 09:29 Dose: 5 ml Thiamine HCl (Vitamin B1 Tab) 100 mg PO DAILY [facility] Last Admin: 04/18/17 09:30 Dose: 100 mg - Labs Labs: 04/18/17 08:28 04/18/17 08:28 PT 10.0 SECONDS (9.7-12.2) 04/16/17 20:25 INR 0.9 04/16/17 20:25 APTT 32 SECONDS (21-34) 04/16/17 20:25 - Constitutional Appears: Well - Respiratory Exam Respiratory Exam: NORMAL BREATHING PATTERN - Cardiovascular Exam Cardiovascular Exam: REGULAR RHYTHM - GI/Abdominal Exam GI & Abdominal Exam: Soft. absent: Tenderness Assessment and Plan (1) Abdominal pain Assessment & Plan: Improved Rec: awaiting stool studies. Replace B12. Status: Acute
[2017-04-18] MEDS ORDERED: Magnesium Sulfate 1 gm in D5W 1 GM/100 ML BAG IVPB SCH (15:00)
--- NOTE | 2017-04-19 02:52 | CP.PCM.PN ---
<Alfonso Carter - Last Filed: 04/19/17 02:47> Subjective - Date & Time of Evaluation Date of Evaluation: 04/19/17 Time of Evaluation: 02:47 - Subjective Subjective: Patient seen. Abdominal Pain and b/l rib pain are improved. Denies any fever, CP , SOB, or urinary symptoms, Objective - Vital Signs/Intake and Output Vital Signs (last 24 hours): Temp Pulse Resp BP Pulse Ox 98.0 F 75 20 145/83 98 04/19/17 00:00 04/19/17 00:00 04/19/17 00:00 04/19/17 00:00 04/19/17 00:00 Intake and Output: 04/18/17 04/19/17 18:59 06:59 Intake Total 1220 1200 Output Total 700 Balance 1220 500 - Medications Medications: Current Medications Acetaminophen (Tylenol 325mg Tab) 650 mg PO Q6 PRN PRN Reason: Pain, moderate (4-7) Last Admin: 04/18/17 16:44 Dose: 650 mg Amlodipine Besylate (Norvasc) 10 mg PO DAILY [facility] Last Admin: 04/18/17 09:30 Dose: 10 mg Ergocalciferol (Drisdol 50,000 Intl Units Cap) 1 cap PO Q7D [facility] Last Admin: 04/17/17 22:28 Dose: 1 cap Folic Acid (Folic Acid) 1 mg PO DAILY [facility] Last Admin: 04/18/17 09:30 Dose: 1 mg Heparin Sodium (Porcine) (Heparin) 5,000 units SC Q8 [facility] Last Admin: 04/18/17 21:15 Dose: 5,000 units Sodium Chloride (Sodium Chloride 0.9%) 1,000 mls @ 100 mls/hr IV .Q10H [facility] Last Admin: 04/18/17 17:49 Dose: 100 mls/hr Lorazepam (Ativan) 1 mg PO Q4H PRN PRN Reason: Symptoms of alcohol withdrawl Multivitamins (Hexavitamin) 1 tab PO DAILY [facility] Last Admin: 04/18/17 09:30 Dose: 1 tab Ondansetron HCl (Zofran Inj) 4 mg IVP Q6H [facility] Last Admin: 04/19/17 01:25 Dose: Not Given Pantoprazole Sodium (Protonix Inj) 40 mg IVP DAILY [facility] Last Admin: 04/18/17 09:30 Dose: 40 mg Promethazine HCl/Codeine (Phenergan/Codeine Oral Syrup) 5 ml PO Q4 PRN PRN Reason: Cough Last Admin: 04/18/17 21:19 Dose: 5 ml Thiamine HCl (Vitamin B1 Tab) 100 mg PO DAILY [facility] Last Admin: 04/18/17 09:30 Dose: 100 mg - Labs Labs: 04/18/17 08:28 04/18/17 08:28 PT 10.0 SECONDS (9.7-12.2) 04/16/17 20:25 INR 0.9 04/16/17 20:25 APTT 32 SECONDS (21-34) 04/16/17 20:25 - Additional Findings Additional findings: - Constitutional Appears: Non-toxic, No Acute Distress - Head Exam Head Exam: ATRAUMATIC, NORMOCEPHALIC - Eye Exam Eye Exam: EOMI, Normal appearance - ENT Exam ENT Exam: Mucous Membranes Dry - Neck Exam Neck exam: Positive for: Normal Inspection - Respiratory Exam Respiratory Exam: Clear to Auscultation Bilateral, NORMAL BREATHING PATTERN. absent: Respiratory Distress - Cardiovascular Exam Cardiovascular Exam: Tachycardia, +S1, +S2 - GI/Abdominal Exam GI & Abdominal Exam: Soft, Tenderness (diffuse; worst epigastric-Improved). absent: Distended, Guarding, Rigid - Extremities Exam Extremities exam: Positive for: normal inspection. Negative for: pedal edema, tenderness Additional comments: Slight upper extremity tremor - Back Exam Back exam: absent: CVA tenderness (L), CVA tenderness (R) - Neurological Exam Neurological exam: Alert, Oriented x3 - Psychiatric Exam Psychiatric exam: Normal Affect, Normal Mood - Skin Skin Exam: Dry, Normal Color, Warm Assessment and Plan - Assessment and Plan (Free Text) Plan: Chronic Small Bowel Wall Thickening Admit to med/surg Pt with admission in 03/2017 for similar symptoms - given PO antibiotics at discharge which patient completed On admission: afebrile, normal wbc, tender to palpation in lower abd quadrants; UA negative 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 10.5 mm noncalcified nodule increased in size from 05/17/2016. Consider follow up based on risk. ( see full report) CT A/P from prior admission (03/17): Segmental acute enteritis involving proximal small bowel. No ascites or mesenteric reaction. No free air/abscess. Right Shoulder Pain Shoulder X-ray (04/17/17): Unremarkable. Limited examination due to patient motion. Acute hyponatremia Na 129 on admission - pt admits diarrhea EKG: showed NSR, no ST changes NS @ 100 cc/hr monitor BMP Diarrhea Admits 5-6 episodes daily for last 2 days Stool Leukocytes Negative Possibly 2/2 to alcohol withdrawal Lung nodule CT abd/pelvis w/ IV contrast:10.5 mm noncalcified nodule within left lung base, increased in size from 05/17/2016, yet unchanged from most recent examination in 03/2017. Consider [address] Chest at 3 months (see full report) Hx of alcohol abuse Patient admits last drink yesterday On admission: alcohol quantitative negative; AST/ALT WNL, Lipase 153 WNL; BP and HR elevated on admission Fall precautions/Seizure precautions CIWA scoring Q4H Ativan 1mg PO Q4H PRN Thiamine 100mg IV Once in ED FA/Thiamine/MV PO Daily Hypertension BP and HR well controlled on latest vital check continue home med amlodopine 10mg PO QD Proteinuria UA 2+ protein - seen as well in last admission Consider repeat UA, if persistent add OLGA/ARB Macrocytic Anemia MCV ~100 believed secondary to chronic alcohol use TIBC/Iron Studies WNL Prophylactic measure GI: protonix 40mg ivp qd DVT: heparin 5000u sc q8H SCD[facility] Diet: Liquid Diet <Dotty Dominguez V - Last Filed: 04/19/17 13:32> Objective - Vital Signs/Intake and Output Vital Signs (last 24 hours): Temp Pulse Resp BP Pulse Ox 97.9 F 79 20 147/84 97 04/19/17 08:27 04/19/17 11:48 04/19/17 08:27 04/19/17 08:27 04/19/17 08:27 Intake and Output: 04/19/17 04/19/17 06:59 18:59 Intake Total 2400 1400 Output Total 700 Balance 1700 1400 - Medications Medications: Current Medications Acetaminophen (Tylenol 325mg Tab) 650 mg PO Q6 PRN PRN Reason: Pain, moderate (4-7) Last Admin: 04/18/17 16:44 Dose: 650 mg Amlodipine Besylate (Norvasc) 10 mg PO DAILY [facility] Last Admin: 04/19/17 09:35 Dose: 10 mg Ergocalciferol (Drisdol 50,000 Intl Units Cap) 1 cap PO Q7D [facility] Last Admin: 04/17/17 22:28 Dose: 1 cap Folic Acid (Folic Acid) 1 mg PO DAILY [facility] Last Admin: 04/19/17 09:34 Dose: 1 mg Heparin Sodium (Porcine) (Heparin) 5,000 units SC Q8 [facility] Last Admin: 04/19/17 05:21 Dose: 5,000 units Sodium Chloride (Sodium Chloride 0.9%) 1,000 mls @ 100 mls/hr IV .Q10H [facility] Last Admin: 04/19/17 05:20 Dose: 100 mls/hr Lorazepam (Ativan) 1 mg PO Q4H PRN PRN Reason: Symptoms of alcohol withdrawl Multivitamins (Hexavitamin) 1 tab PO DAILY [facility] Last Admin: 04/19/17 09:34 Dose: 1 tab Ondansetron HCl (Zofran Inj) 4 mg IVP Q6H [facility] Last Admin: 04/19/17 08:05 Dose: Not Given Pantoprazole Sodium (Protonix Inj) 40 mg IVP DAILY [facility] Last Admin: 04/19/17 09:36 Dose: 40 mg Promethazine HCl/Codeine (Phenergan/Codeine Oral Syrup) 5 ml PO Q4 PRN PRN Reason: Cough Last Admin: 04/19/17 09:33 Dose: 5 ml Thiamine HCl (Vitamin B1 Tab) 100 mg PO DAILY [facility] Last Admin: 04/19/17 09:34 Dose: 100 mg - Labs Labs: 04/19/17 07:42 04/19/17 07:42 PT 10.0 SECONDS (9.7-12.2) 04/16/17 20:25 INR 0.9 04/16/17 20:25 APTT 32 SECONDS (21-34) 04/16/17 20:25 Attending/Attestation - Attestation I have personally seen and examined this patient.: Yes I have fully participated in the care of the patient.: Yes I have reviewed all pertinent clinical information, including history, physical exam and plan: Yes Notes (Text): Patient seen, examined, and case discussed with day-time resident. Assistance with translation using [employer] Monitoring Seun Boles (ID #[id number]). Patient reports pleuritic chest pain which has improved, and report abdominal pain has improved. Patient reports yesterday he had loose stool but by midnight the stool appeared more formed. Patient reports he does at least 1-3 beers a week for some-time and drank about 5 days ago. Patient reports he does smoke, but it is less than what he used to smoke. Explained the the patient, that the alcohol use has many implications including adverse sequela to abdomen and bone marrow. Patient reports he is vegetarian which also helps to explain his B12 deficiency. 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 Assessment/Plan 1) Gastroenteritis Chronic Small Bowel Wall Thickening On CT Scan * Admit to med/surg * Pt with admission in 03/2017 for similar symptoms * On admission: afebrile, normal wbc, tender to palpation in lower abd quadrants ; UA negative * CT abd/pelvis w/ IV contrast (04/17/17): Small bowel wall thickening w/o surrounding inflammation or fluid to confirm enteritis. 10.5 mm noncalcified nodule increased in size from 05/17/2016. Consider follow up based on risk. ( see full report) * CT A/P from prior admission (03/17): Segmental acute enteritis involving proximal small bowel. No ascites or mesenteric reaction. No free air/abscess. 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 * F/u bowel movements, which are improving * CARL: negative * leukocytes: negative * Blood alcohol <10 * Stool culture: no salmonella, shigella, or campylobacter isolated * Ova and Parasite: none identified * Pending * fecal Fat QL: * Calprotectin Feval * Fecal pancreatic elastase * Giardia AG EIA * Tissue Transgulatamine * NS 100cc/hr 2) Acute hyponatremia * mild * Improving diarrhea * on NS 100cc/hr 3) Diarrhea * Admits 5-6 episodes daily for last 2 days * Improving * Stool culture: no salmonella, shigella, or campylobacter isolated * Ova and Parasite: none identified * Pending * fecal Fat QL: * Calprotectin Feval * Fecal pancreatic elastase * Giardia AG EIA * Tissue Transgulatamine 4) Lung nodule * CT abd/pelvis w/ IV contrast:10.5 mm noncalcified nodule within left lung base , increased in size from 05/17/2016, yet unchanged from most recent examination in 03/2017. Consider [address] Chest at 3 months (see full report) * Patient is a smoker, he reports he has reduced smoking--Recommend nictone smoking patch and refrain from tobacco use 5) Hx of alcohol use, chronic * Ativan 1mg PO Q4H PRN * Thiamine 100mg PO daily * MV1 1 tab PO daily * Folic acid 1mg PO daily 6) Hypertension * Norvasc 10mg PO daily * Monitor vital signs 7) Vitamin B12 Deficiency * B12 1000mcg IM 04/18/14 for the next 4 weeks * influencing etiology: vegetarian, alcohol use 8) Vitamin D Deficiency * Vitamin D <`2.8 * Vitamin D 50,000 ICU 1 cap PO Q 7 day for 8-12 weeks 9) Proteinuria * start Lisinopril 5mg PO daily 10) Shoulder Pain, Right * Shoulder xray: normal 11) Tobacco cessation * Patient reports he has lower his use * Start on Nicotone patch * Duonebs PRN shortness of breathe * will order for portable chest xray given cough 12) Low Magnesium * Awaiting Mg2+ today * will replete if low 13) Prophylactic measure * GI: protonix 40mg ivp qd * DVT: heparin 5000u sc q8H * SCDs * PT eval-->help appreciated; recommend home
[2017-04-19] MEDS: Sodium Chloride 0.9% 1,000 ML IV SCH ×3 (03:45→13:25)
[2017-04-19 07:54] LABS: BASO # 0.1 K/uL (0.0-0.2); BASO % 1.3 % (0.0-2.0); EOS # 0.9 K/uL (0.0-0.7); EOS % 14.4 % (0.0-4.0); HEMATOCRIT 38.3 % (35.0-51.0); LYMPH # 1.7 K/uL (1.0-4.3); LYMPH % 26.4 % (20.0-40.0); MEAN CELL VOLUME 101.4 fL (80.0-94.0); MEAN CORPUSCULAR HEMOGLOBIN 34.5 pg (27.0-31.0); MEAN PLATELET VOLUME 8.2 fL (7.2-11.7); MONO # 0.7 K/uL (0.0-0.8); MONO % 10.9 % (0.0-10.0); NRBC % 0.1 % (0.0-2.0); RED CELL DISTRIBUTION WIDTH 15.2 % (11.5-14.5); WHITE BLOOD COUNT 6.3 K/uL (4.8-10.8)
[2017-04-19 08:32] LABS: ALB/GLOB RATIO 1.3 (1.0-2.1); ALKALINE PHOSPHATASE 73 U/L (38-126); ALT/SGPT 30 U/L (21-72); AST/SGOT 94 U/L (17-59); BILIRUBIN,TOTAL 0.9 mg/dL (0.2-1.3); BLOOD UREA NITROGEN 4 mg/dL (9-20); CALCIUM 8.4 mg/dl (8.6-10.4); CARBON DIOXIDE 23 mmol/L (22-30); CHLORIDE 97 mmol/L (98-107); GFR AFRICAN-AMERICAN > 60; GLUCOSE,RANDOM 87 mg/dL (75-110); POTASSIUM 3.5 mmol/L (3.6-5.2); SODIUM 130 mmol/L (132-148); TOTAL PROTEIN 6.9 g/dL (6.3-8.3)
[2017-04-19] MEDS: Promethazine/Cod 6.25mg-10mg/5ml Syr UD PO PRN (09:33)
[2017-04-19] MEDS: Multiple Vitamins Tab PO SCH (09:34)
--- NOTE | 2017-04-19 11:14 | CP.PCM.PN ---
Subjective - Date & Time of Evaluation Date of Evaluation: 04/19/17 Time of Evaluation: 11:13 - Subjective Subjective: GI Service Stable Objective - Vital Signs/Intake and Output Vital Signs (last 24 hours): Temp Pulse Resp BP Pulse Ox 97.9 F 72 20 147/84 97 04/19/17 08:27 04/19/17 08:27 04/19/17 08:27 04/19/17 08:27 04/19/17 08:27 Intake and Output: 04/19/17 04/19/17 06:59 18:59 Intake Total 2400 Output Total 700 Balance 1700 - Medications Medications: Current Medications Acetaminophen (Tylenol 325mg Tab) 650 mg PO Q6 PRN PRN Reason: Pain, moderate (4-7) Last Admin: 04/18/17 16:44 Dose: 650 mg Amlodipine Besylate (Norvasc) 10 mg PO DAILY [facility] Last Admin: 04/19/17 09:35 Dose: 10 mg Ergocalciferol (Drisdol 50,000 Intl Units Cap) 1 cap PO Q7D [facility] Last Admin: 04/17/17 22:28 Dose: 1 cap Folic Acid (Folic Acid) 1 mg PO DAILY [facility] Last Admin: 04/19/17 09:34 Dose: 1 mg Heparin Sodium (Porcine) (Heparin) 5,000 units SC Q8 [facility] Last Admin: 04/19/17 05:21 Dose: 5,000 units Sodium Chloride (Sodium Chloride 0.9%) 1,000 mls @ 100 mls/hr IV .Q10H [facility] Last Admin: 04/19/17 05:20 Dose: 100 mls/hr Lorazepam (Ativan) 1 mg PO Q4H PRN PRN Reason: Symptoms of alcohol withdrawl Multivitamins (Hexavitamin) 1 tab PO DAILY [facility] Last Admin: 04/19/17 09:34 Dose: 1 tab Ondansetron HCl (Zofran Inj) 4 mg IVP Q6H [facility] Last Admin: 04/19/17 08:05 Dose: Not Given Pantoprazole Sodium (Protonix Inj) 40 mg IVP DAILY [facility] Last Admin: 04/19/17 09:36 Dose: 40 mg Promethazine HCl/Codeine (Phenergan/Codeine Oral Syrup) 5 ml PO Q4 PRN PRN Reason: Cough Last Admin: 04/19/17 09:33 Dose: 5 ml Thiamine HCl (Vitamin B1 Tab) 100 mg PO DAILY [facility] Last Admin: 04/19/17 09:34 Dose: 100 mg - Labs Labs: 04/19/17 07:42 04/19/17 07:42 PT 10.0 SECONDS (9.7-12.2) 04/16/17 20:25 INR 0.9 04/16/17 20:25 APTT 32 SECONDS (21-34) 04/16/17 20:25 - Constitutional Appears: Well, No Acute Distress - Eye Exam Eye Exam: Normal appearance - Respiratory Exam Respiratory Exam: NORMAL BREATHING PATTERN - Cardiovascular Exam Cardiovascular Exam: REGULAR RHYTHM - GI/Abdominal Exam GI & Abdominal Exam: Soft Assessment and Plan (1) Abdominal pain Assessment & Plan: Stable Advise to stop ETOH Check fecal elastase B12 replaced Advance diet Discussed with Dr Dominguez Status: Acute
[2017-04-19 13:43] LABS: MAGNESIUM 1.4 mg/dL (1.6-2.3)
--- NOTE | 2017-04-19 15:38 | RAD ---
Chest x-ray single frontal view History: Cough. Comparison: 03/15/2017 Findings: Hyperinflation suggestive for COPD and or emphysematous changes. Right hilar prominence. Small nodular density in the lateral aspect of the right midlung measuring up to 4 millimeters. Additional small nodular densities seen at the lateral aspect of the left mid lung. This may be better evaluated with chest CT. Right apical pleural thickening. Tortuous aorta. Degenerative changes in the spine and shoulders. Impression: Hyperinflation suggestive for COPD and or emphysematous changes. Right hilar prominence. Small nodular density in the lateral aspect of the right midlung measuring up to 4 millimeters. Additional small nodular densities seen at the lateral aspect of the left mid lung. This may be better evaluated with chest CT. Right apical pleural thickening.
[2017-04-19] MEDS: Albuterol-Ipratrop 3 mg / 0.5 (3 ml) UD INH SCH (19:31)
[2017-04-20] MEDS: Sodium Chloride 0.9% 1,000 ML IV SCH (00:19)
[2017-04-20] MEDS: Promethazine/Cod 6.25mg-10mg/5ml Syr UD PO PRN ×2 (00:31→08:09)
[2017-04-20] MEDS: Albuterol-Ipratrop 3 mg / 0.5 (3 ml) UD INH SCH ×4 (01:28→19:32)
[2017-04-20 06:39] LABS: BASO # 0.1 K/uL (0.0-0.2); BASO % 1.2 % (0.0-2.0); EOS # 0.5 K/uL (0.0-0.7); EOS % 6.1 % (0.0-4.0); HEMATOCRIT 39.5 % (35.0-51.0); LYMPH # 1.7 K/uL (1.0-4.3); LYMPH % 22.6 % (20.0-40.0); MEAN CELL VOLUME 100.8 fL (80.0-94.0); MEAN CORPUSCULAR HEMOGLOBIN 34.6 pg (27.0-31.0); MEAN CORPUSCULAR HGB CONC 34.3 g/dL (33.0-37.0); MEAN PLATELET VOLUME 7.8 fL (7.2-11.7); MONO # 0.9 K/uL (0.0-0.8); MONO % 11.8 % (0.0-10.0); NRBC % 0.1 % (0.0-2.0); WHITE BLOOD COUNT 7.5 K/uL (4.8-10.8)
[2017-04-20 06:55] LABS: ALKALINE PHOSPHATASE 64 U/L (38-126); ALT/SGPT 40 U/L (21-72); AST/SGOT 65 U/L (17-59); BILIRUBIN,TOTAL 0.5 mg/dL (0.2-1.3); BLOOD UREA NITROGEN 3 mg/dL (9-20); CARBON DIOXIDE 25 mmol/L (22-30); CHLORIDE 96 mmol/L (98-107); GFR AFRICAN-AMERICAN > 60; GLUCOSE,RANDOM 100 mg/dL (75-110); MAGNESIUM 1.3 mg/dL (1.6-2.3); POTASSIUM 3.3 mmol/L (3.6-5.2); SODIUM 132 mmol/L (132-148)
--- NOTE | 2017-04-20 08:15 | CP.PCM.PN ---
Subjective - Date & Time of Evaluation Date of Evaluation: 04/20/17 Time of Evaluation: 08:15 - Subjective Subjective: Progress note for Dr. Cutler Patient seen and examined at bedside. No acute events overnight. patient states his abdominal pain is a 7-8 out of 10. He says he's eating well, but has some abdominal pain. Patient states his last drink was one week ago. Patient denies chest pain, shortness of breath. Patient says he walks to bathroom. Objective - Vital Signs/Intake and Output Vital Signs (last 24 hours): Temp Pulse Resp BP Pulse Ox 97.8 F 92 H 20 148/89 98 04/20/17 00:00 04/20/17 00:00 04/20/17 00:00 04/20/17 00:00 04/20/17 00:00 Intake and Output: 04/20/17 04/20/17 06:59 18:59 Intake Total 1840 Output Total 550 Balance 1290 - Medications Medications: Current Medications Acetaminophen (Tylenol 325mg Tab) 650 mg PO Q6 PRN PRN Reason: Pain, moderate (4-7) Last Admin: 04/20/17 08:08 Dose: 650 mg Albuterol/Ipratropium (Duoneb 3 Mg/0.5 Mg (3 Ml) Ud) 3 ml INH RQ6 [facility] Last Admin: 04/20/17 08:11 Dose: 3 ml Amlodipine Besylate (Norvasc) 10 mg PO DAILY [facility] Last Admin: 04/19/17 09:35 Dose: 10 mg Ergocalciferol (Drisdol 50,000 Intl Units Cap) 1 cap PO Q7D [facility] Last Admin: 04/17/17 22:28 Dose: 1 cap Folic Acid (Folic Acid) 1 mg PO DAILY [facility] Last Admin: 04/19/17 09:34 Dose: 1 mg Lisinopril (Zestril) 5 mg PO DAILY [facility] Lorazepam (Ativan) 1 mg PO Q4H PRN PRN Reason: Symptoms of alcohol withdrawl Multivitamins (Hexavitamin) 1 tab PO DAILY [facility] Last Admin: 04/19/17 09:34 Dose: 1 tab Nicotine (Nicoderm Cq) 1 patch TD DAILY [facility] Last Admin: 04/19/17 14:50 Dose: 1 patch Ondansetron HCl (Zofran Inj) 4 mg IVP Q6H [facility] Last Admin: 04/20/17 08:08 Dose: 4 mg Pantoprazole Sodium (Protonix Inj) 40 mg IVP DAILY [facility] Last Admin: 04/19/17 09:36 Dose: 40 mg Promethazine HCl/Codeine (Phenergan/Codeine Oral Syrup) 5 ml PO Q4 PRN PRN Reason: Cough Last Admin: 04/20/17 08:09 Dose: 5 ml Thiamine HCl (Vitamin B1 Tab) 100 mg PO DAILY [facility] Last Admin: 04/19/17 09:34 Dose: 100 mg - Labs Labs: 04/20/17 06:17 04/20/17 06:17 PT 10.0 SECONDS (9.7-12.2) 04/16/17 20:25 INR 0.9 04/16/17 20:25 APTT 32 SECONDS (21-34) 04/16/17 20:25 - Head Exam Head Exam: NORMAL INSPECTION - Eye Exam Eye Exam: EOMI, Normal appearance - ENT Exam ENT Exam: Mucous Membranes Moist, Normal Exam - Neck Exam Neck Exam: Normal Inspection - Respiratory Exam Respiratory Exam: Decreased Breath Sounds. 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 iZegler Stool Leukocytes Negative CARL 6 Profile Negative Influenza Negative TIBC/Iron Studies WNL Folate WNL CRP 12.45 (high) ESR 30 (high) Vitamin B12 206 (low) 25-OH Vitamin D <12.8 (low) F/U Tissue transamglutinase F/U [place] Meds: NS @ 100cc/hr Vitamin B12 1000mcg IM Once Ondansetron 4mg IVP Q6H Imaging: CT abd/pelvis w/ IV contrast (04/17/17): Small bowel wall thickening w/o surrounding inflammation or fluid to confirm enteritis. 10.5 mm noncalcified nodule increased in size from 05/17/2016. Consider follow up based on risk. ( see full report) CT A/P from prior admission (03/17): Segmental acute enteritis involving proximal small bowel. No ascites or mesenteric reaction. No free air/abscess. Right Shoulder Pain Shoulder X-ray (04/17/17): Unremarkable. Limited examination due to patient motion. Acute hyponatremia Na 129 on admission - pt admits diarrhea EKG: showed NSR, no ST changes NS @ 100 cc/hr monitor BMP Diarrhea Admits 5-6 episodes daily for last 2 days Stool Leukocytes Negative Possibly 2/2 to alcohol withdrawal Lung nodule CT abd/pelvis w/ IV contrast:10.5 mm noncalcified nodule within left lung base, increased in size from 05/17/2016, yet unchanged from most recent examination in 03/2017. Consider [address] Chest at 3 months (see full report) 03/19 CXR: hyperinflation suggestive for COPD and/or emphysematous changes, right hilar prominence 4mm Right mid lung nodular density. small nodular densities at lateral aspect of left mid lung. right apical pleural thickening. degenerative changes in spine and shoulders. Hx of alcohol abuse Patient admits last drink yesterday On admission: alcohol quantitative negative; AST/ALT WNL, Lipase 153 WNL; BP and HR elevated on admission Fall precautions/Seizure precautions CIWA scoring Q4H Ativan 1mg PO Q4H PRN Thiamine 100mg IV Once in ED FA/Thiamine/MV PO Daily Hypertension BP and HR well controlled on latest vital check continue home med amlodopine 10mg PO QD Proteinuria UA 2+ protein - seen as well in last admission Consider repeat UA, if persistent add OLGA/ARB Macrocytic Anemia MCV ~100 believed secondary to chronic alcohol use TIBC/Iron Studies WNL Diet: Regular Diet Prophylactic measure GI: protonix 40mg IVP QD DVT: heparin 5000u SC Q8H [facility]
[2017-04-20] MEDS: Multiple Vitamins Tab PO SCH (09:28)
[2017-04-20] MEDS: Potassium Chloride 20 mEq ER Tab PO SCH ×2 (11:17→23:07)
[2017-04-20 12:14] LABS: URINE BACTERIA RARE (<OCC); URINE BILIRUBIN NEGATIVE (NEGATIVE); URINE BLOOD NEGATIVE (NEGATIVE); URINE COLOR Straw (YELLOW); URINE GLUCOSE (UA) NORMAL (Normal); URINE KETONE NEGATIVE (NEGATIVE); URINE LEUKOCYTE ESTERASE NEG Leu/uL (Negative); URINE PROTEIN NEGATIVE (NEGATIVE); URINE UROBILINOGEN NORMAL mg/dL (0.2-1.0); WBC URINE < 1 /hpf (0-5)
--- NOTE | 2017-04-20 15:40 | CP.PCM.PN ---
Subjective - Date & Time of Evaluation Date of Evaluation: 04/20/17 Time of Evaluation: 15:38 - Subjective Subjective: GI Service note Feels well Denies abdominal pain Objective - Vital Signs/Intake and Output Vital Signs (last 24 hours): Temp Pulse Resp BP Pulse Ox 97.5 F L 109 H 20 138/93 H 99 04/20/17 08:21 04/20/17 08:21 04/20/17 08:21 04/20/17 08:21 04/20/17 08:21 Intake and Output: 04/20/17 04/20/17 06:59 18:59 Intake Total 1840 950 Output Total 550 Balance 1290 950 - Medications Medications: Current Medications Acetaminophen (Tylenol 325mg Tab) 650 mg PO Q6 PRN PRN Reason: Pain, moderate (4-7) Last Admin: 04/20/17 08:08 Dose: 650 mg Albuterol/Ipratropium (Duoneb 3 Mg/0.5 Mg (3 Ml) Ud) 3 ml INH RQ6 [facility] Last Admin: 04/20/17 14:54 Dose: Not Given Amlodipine Besylate (Norvasc) 10 mg PO DAILY [facility] Last Admin: 04/20/17 09:28 Dose: 10 mg Ergocalciferol (Drisdol 50,000 Intl Units Cap) 1 cap PO Q7D [facility] Last Admin: 04/17/17 22:28 Dose: 1 cap Folic Acid (Folic Acid) 1 mg PO DAILY [facility] Last Admin: 04/20/17 09:28 Dose: 1 mg Lisinopril (Zestril) 5 mg PO DAILY [facility] Last Admin: 04/20/17 09:28 Dose: 5 mg Lorazepam (Ativan) 1 mg PO Q4H PRN PRN Reason: Symptoms of alcohol withdrawl Multivitamins (Hexavitamin) 1 tab PO DAILY [facility] Last Admin: 04/20/17 09:28 Dose: 1 tab Nicotine (Nicoderm Cq) 1 patch TD DAILY [facility] Last Admin: 04/20/17 09:29 Dose: 1 patch Ondansetron HCl (Zofran Inj) 4 mg IVP Q6H [facility] Last Admin: 04/20/17 13:50 Dose: 4 mg Pantoprazole Sodium (Protonix Inj) 40 mg IVP DAILY [facility] Last Admin: 04/20/17 09:28 Dose: 40 mg Potassium Chloride (K-Dur 20 Meq Er Tab) 20 meq PO BID [facility] Stop: 04/20/17 18:01 Last Admin: 04/20/17 11:17 Dose: 20 meq Promethazine HCl/Codeine (Phenergan/Codeine Oral Syrup) 5 ml PO Q4 PRN PRN Reason: Cough Last Admin: 04/20/17 08:09 Dose: 5 ml Thiamine HCl (Vitamin B1 Tab) 100 mg PO DAILY [facility] Last Admin: 04/20/17 09:28 Dose: 100 mg - Labs Labs: 04/20/17 06:17 04/20/17 06:17 PT 10.0 SECONDS (9.7-12.2) 04/16/17 20:25 INR 0.9 04/16/17 20:25 APTT 32 SECONDS (21-34) 04/16/17 20:25 - Constitutional Appears: Well, No Acute Distress - Eye Exam Eye Exam: absent: Scleral icterus - Respiratory Exam Respiratory Exam: NORMAL BREATHING PATTERN - Cardiovascular Exam Cardiovascular Exam: REGULAR RHYTHM - GI/Abdominal Exam GI & Abdominal Exam: Soft. absent: Tenderness Assessment and Plan (1) Abdominal pain Assessment & Plan: Resolved No further plans for GI Awaiting several stool test results Status: Acute
[2017-04-20] MEDS ORDERED: Potassium Chloride 20 mEq ER Tab PO ONE (23:15)
[2017-04-21] MEDS: Albuterol-Ipratrop 3 mg / 0.5 (3 ml) UD INH SCH ×3 (01:25→13:26)
[2017-04-21 07:30] LABS: BASO # 0.1 K/uL (0.0-0.2); BASO % 1.2 % (0.0-2.0); EOS % 15.6 % (0.0-4.0); HEMATOCRIT 39.4 % (35.0-51.0); LYMPH # 1.4 K/uL (1.0-4.3); LYMPH % 20.6 % (20.0-40.0); MEAN CELL VOLUME 102.6 fL (80.0-94.0); MEAN CORPUSCULAR HEMOGLOBIN 35.1 pg (27.0-31.0); MEAN CORPUSCULAR HGB CONC 34.3 g/dL (33.0-37.0); MEAN PLATELET VOLUME 8.1 fL (7.2-11.7); MONO # 0.9 K/uL (0.0-0.8); MONO % 13.7 % (0.0-10.0); RED CELL DISTRIBUTION WIDTH 15.5 % (11.5-14.5); WHITE BLOOD COUNT 6.6 K/uL (4.8-10.8)
[2017-04-21 08:25] LABS: ALKALINE PHOSPHATASE 82 U/L (38-126); ALT/SGPT 37 U/L (21-72); AST/SGOT 58 U/L (17-59); BILIRUBIN,TOTAL 0.4 mg/dL (0.2-1.3); BLOOD UREA NITROGEN 9 mg/dL (9-20); CALCIUM 9.3 mg/dl (8.6-10.4); CARBON DIOXIDE 27 mmol/L (22-30); CHLORIDE 98 mmol/L (98-107); GFR AFRICAN-AMERICAN > 60; GLUCOSE,RANDOM 115 mg/dL (75-110); POTASSIUM 4.3 mmol/L (3.6-5.2); SODIUM 133 mmol/L (132-148); TOTAL PROTEIN 8.3 g/dL (6.3-8.3)
[2017-04-21 09:40] VITALS: TEMP 98
[2017-04-21] MEDS: Multiple Vitamins Tab PO SCH (09:56)
[2017-04-21] MEDS: Promethazine/Cod 6.25mg-10mg/5ml Syr UD PO PRN (10:03)
--- NOTE | 2017-04-21 11:36 | CP.PCM.DIS ---
Provider - Provider Date of Admission: 04/17/17 00:41 Attending physician: Michael Cutler MD Consults: Dr. Ziegler GI consult Time Spent in preparation of Discharge (in minutes): 35 Hospital Course - Lab Results Lab Results: Micro Results 04/17/17 08:30 Stool Stool Culture - Final NO SALMONELLA, SHIGELLA OR CAMPYLOBACTER ISOLATED. 04/17/17 08:30 Stool Ova and Parasite Concentrate Exam - Final Most Recent Lab Values WBC 6.6 K/uL (4.8-10.8) 04/21/17 07:14 RBC 3.84 Mil/uL (4.40-5.90) L 04/21/17 07:14 Hgb 13.5 g/dL (12.0-18.0) 04/21/17 07:14 Hct 39.4 % (35.0-51.0) 04/21/17 07:14 MCV 102.6 fL (80.0-94.0) H 04/21/17 07:14 MCH 35.1 pg (27.0-31.0) H 04/21/17 07:14 MCHC 34.3 g/dL (33.0-37.0) 04/21/17 07:14 RDW 15.5 % (11.5-14.5) H 04/21/17 07:14 Plt Count 284 K/uL (130-400) 04/21/17 07:14 MPV 8.1 fL (7.2-11.7) 04/21/17 07:14 Neut % (Auto) 48.9 % (50.0-75.0) L 04/21/17 07:14 Lymph % (Auto) 20.6 % (20.0-40.0) 04/21/17 07:14 [place] % (Auto) 13.7 % (0.0-10.0) H 04/21/17 07:14 Eos % (Auto) 15.6 % (0.0-4.0) H 04/21/17 07:14 Baso % (Auto) 1.2 % (0.0-2.0) 04/21/17 07:14 Neut # 3.2 K/uL (1.8-7.0) 04/21/17 07:14 Lymph # 1.4 K/uL (1.0-4.3) 04/21/17 07:14 [place] # 0.9 K/uL (0.0-0.8) H 04/21/17 07:14 Eos # 1.0 K/uL (0.0-0.7) H 04/21/17 07:14 Baso # 0.1 K/uL (0.0-0.2) 04/21/17 07:14 ESR 25 mm/hr (0-15) H 04/18/17 08:28 PT 10.0 SECONDS (9.7-12.2) 04/16/17 20:25 INR 0.9 04/16/17 20:25 APTT 32 SECONDS (21-34) 04/16/17 20:25 Sodium 133 mmol/L (132-148) 04/21/17 07:14 Potassium 4.3 mmol/L (3.6-5.2) 04/21/17 07:14 Chloride 98 mmol/L (98-107) 04/21/17 07:14 Carbon Dioxide 27 mmol/L (22-30) 04/21/17 07:14 Anion Gap 13 (10-20) 04/21/17 07:14 BUN 9 mg/dL (9-20) 04/21/17 07:14 Creatinine 0.7 mg/dL (0.8-1.5) L 04/21/17 07:14 Est GFR ( Amer) > 60 04/21/17 07:14 Est GFR (Non-Af Amer) > 60 04/21/17 07:14 Random Glucose 115 mg/dL (75-110) H 04/21/17 07:14 Calcium 9.3 mg/dl (8.6-10.4) 04/21/17 07:14 Phosphorus 2.9 mg/dL (2.5-4.5) 04/17/17 04:05 Magnesium 1.3 mg/dL (1.6-2.3) L 04/20/17 06:17 Iron 92 ug/dL (49-181) 04/17/17 04:09 TIBC 290 ug/dL (250-450) 04/17/17 04:09 % Saturation 32 (20-55) 04/17/17 04:09 Total Bilirubin 0.4 mg/dL (0.2-1.3) 04/21/17 07:14 AST 58 U/L (17-59) 04/21/17 07:14 ALT 37 U/L (21-72) 04/21/17 07:14 Alkaline Phosphatase 82 U/L (38-126) 04/21/17 07:14 C-React Prot High Sens 10.43 mg/L (1.00-3.00) H 04/18/17 08:28 Total Protein 8.3 g/dL (6.3-8.3) 04/21/17 07:14 Albumin 4.1 g/dL (3.5-5.0) 04/21/17 07:14 Globulin 4.2 gm/dL (2.2-3.9) H 04/21/17 07:14 Albumin/Globulin Ratio 1.0 (1.0-2.1) 04/21/17 07:14 Lipase 150 U/L (23-300) 04/17/17 19:04 Vitamin B12 206 pg/mL (239-931) L 04/17/17 04:05 25-OH Vitamin D Total < 12.8 NG/ML (30.0-100.0) L 04/17/17 04:09 Folate 8.7 ng/mL 04/17/17 04:05 Urine Color Straw (YELLOW) 04/20/17 12:02 Urine Clarity Clear (Clear) 04/20/17 12:02 Urine pH 7.0 (5.0-8.0) 04/20/17 12:02 Ur Specific [place] 1.003 (1.003-1.030) 04/20/17 12:02 Urine Protein Negative mg/dL (NEGATIVE) 04/20/17 12:02 Urine Glucose (UA) Normal mg/dL (Normal) 04/20/17 12:02 Urine Ketones Negative mg/dL (NEGATIVE) 04/20/17 12:02 Urine Blood Negative (NEGATIVE) 04/20/17 12:02 Urine Nitrate Negative (NEGATIVE) 04/20/17 12:02 Urine Bilirubin Negative (NEGATIVE) 04/20/17 12:02 Urine Urobilinogen Normal mg/dL (0.2-1.0) 04/20/17 12:02 Ur Leukocyte Esterase Neg [place]/uL (Negative) 04/20/17 12:02 Urine WBC (Auto) < 1 /hpf (0-5) 04/20/17 12:02 Urine RBC (Auto) < 1 /hpf (0-3) 04/16/17 20:25 Urine Bacteria Rare (<OCC) 04/20/17 12:02 Stool Leukocytes, Qual Negative (NEGATIVE) 04/17/17 04:49 Alcohol, Quantitative < 10 mg/dl (0-10) 04/16/17 20:25 CARL 6 Profile Negative (NEGATIVE) 04/17/17 09:03 Tiss Transglutamin IgG 1 U/mL 04/18/17 08:28 Tiss Transglutamin IgA 1 U/mL 04/18/17 08:28 Influenza Typ A,B (EIA) Negative for flu a/b (NEGATIVE) 04/17/17 07:02 - Hospital Course Hospital Course: HPI Patient is a 56 year old male, with a PMHx of HTN, nephrolithiasis, hx of tuberculosis, compression deformity of T11 vertebral body, and ETOH abuse, as well as recent admission to [facility] in March 2017, for enteritis, presented to the ED c/o of worsening intermittent periumbilical abdominal pain rated 10/10 that started 2 days ago. Patient describes the pain as "aching and stabbing that radiates to his sides" bilaterally. The pain has been constant for 2 days and has not tried taking over the counter medications for the pain. Patient notes non-bloody diarrhea (5-6x per day) for the past 2 days and vomiting yesterday, and this morning. Patient also states he is constantly feeling cold and has been drinking 3 glasses of lorin each day for the past 2 days thinking it would alleviate his chills. He states he experienced a similar episode half a month ago which he admitted to the hospital for and given antibiotics. Patient admits decreased appetite, and states he does not feel hungry, and feels he has lost weight recently though he cannot quantify the amount. Patient denies fever, vision changes, chest pain, palpitations, shortness of breath, hematemsis, hematochezia, dysuria, recent travel, and sick contacts. Hospital course: Patient was admitted for enteritis. In the ED, CT abd/ pelvis with PO and IV contrast was done and showed small bowel thickening without surrounding inflammation or fluid to confirm an acute enteritis, and 10,5 mm noncalcified nodule increased in size from 05/17/2016. GI consult was placed. GI plans were PPI, fecal elastase and enteric pathogens, lipase, and consider trial of pancreatic enzyme supplementation. Ova, parasite, and stool cultures were done and were negative. Chest x-ray was done and showed small nodular density in the lateral aspect of the right midlung measuring up to 4 mm, and additional small nodular densities seen at the lateral aspect of the left mid lung. Diet was advanced and patient was tolerating. Patient was cleared for discharged. Patient has an appointment with [facility] for May 05 at 9am. Patient is to follow up with GI doctor in one week. Patient was discharged with the following medications: colase, pepcid and htn medications. - Date & Time of H&P Date of H&P: 04/21/17 Time of H&P: 11:47 Discharge Exam - Head Exam Head Exam: NORMAL INSPECTION - Eye Exam Eye Exam: EOMI, Normal appearance - ENT Exam ENT Exam: Mucous Membranes Moist - Neck Exam Neck exam: Full Rom - Respiratory Exam Respiratory Exam: Decreased Breath Sounds. absent: Accessory Muscle Use - Cardiovascular Exam Cardiovascular Exam: +S1, +S2 - Extremities Exam Extremities exam: full ROM - Neurological Exam Neurological exam: Alert - Psychiatric Exam Psychiatric exam: Normal Affect, Normal Mood - Skin Skin Exam: Dry Discharge Plan - Discharge Medications Prescriptions: amLODIPine [Norvasc] 10 mg PO DAILY #30 tab Docusate [Colace] 100 mg PO DAILY #30 cap Famotidine [Pepcid] 20 mg PO DAILY #30 tab Hydrocortisone 2.5% (Rectal) [Anusol-HC] 30 gm NC DAILY PRN #1 tube PRN Reason: Hemorrhoids - Follow Up Plan Condition: FAIR Disposition: HOME/ ROUTINE Instructions: Famotidine (By mouth), Laxative, Stool Softeners (By mouth), Amlodipine (By mouth), Hydrocortisone (Into the rectum), Abdominal Pain (ED) Additional Instructions: follow up with primary care doctor in 1 week follow up with GI doctor in 1 week anusol, colase, fluids, high fiber diet for management of hemorrhoid until management is done by primary care doctor return to Emergency room if abdominal pain, diarrhea, blood in stool Referrals: Non [facility] Provider, [Non-Staff] - Asad Ziegler MD [Staff Provider] -
[2017-04-21 15:32] VITALS: PULSE 85; O2SAT 100
[2017-04-21 16:10] VITALS: BP 132/82; RESP 20
== END 2017-04-21 16:45 | disposition home or self-care (01) | DRG 813 ==
LOC: C.ER 20:01 → SUPCPDRO 20:01 → C.9E 04-17 00:41 → C.3T 04-17 18:41
PROVIDERS: ADMIT Internal Medicine; ATTEND Internal Medicine
DX: K52.9 Noninfective gastroenteritis and colitis, unspecified (principal); E87.1 Hypo-osmolality and hyponatremia; I12.9 Hypertensive chronic kidney disease with stage 1 through stage 4 chronic kidney disease, or unspecified chronic kidney disease; F10.239 Alcohol dependence with withdrawal, unspecified; N18.9 Chronic kidney disease, unspecified; E53.8 Deficiency of other specified B group vitamins; M25.511 Pain in right shoulder; Y90.0 Blood alcohol level of less than 20 mg/100 ml; R80.9 Proteinuria, unspecified; D53.9 Nutritional anemia, unspecified; Z87.442 Personal history of urinary calculi; Z86.11 Personal history of tuberculosis; J45.909 Unspecified asthma, uncomplicated; M19.90 Unspecified osteoarthritis, unspecified site; M06.9 Rheumatoid arthritis, unspecified; R91.1 Solitary pulmonary nodule; E86.0 Dehydration; F17.210 Nicotine dependence, cigarettes, uncomplicated; E55.9 Vitamin D deficiency, unspecified

== ENCOUNTER 2017-05-07 00:18 | Emergency (ER) | payer SELFPAY ==
[2017-05-07 00:18] VITALS: BMI 23.8
[2017-05-07] MEDS ORDERED: Iohexol 240 (50 ml) PO ONE (00:58)
--- NOTE | 2017-05-07 01:05 | C.PDOC ---
History Of Present Illness 56 year old male presents to the ED for evaluation abdominal pain which has been intermittent for around 1 week. Patient admits to history of chronic alcoholism. Patient denies fever, chills, nausea, vomiting. Chief Complaint (Nursing): Abdominal Pain History Per: Patient History/Exam Limitations: no limitations Onset/Duration Of Symptoms: Intermittent Episodes (1 week ) Current Symptoms Are (Timing): Still Present Location Of Pain/Discomfort: Diffuse Radiation Of Pain To:: None Quality Of Discomfort: "Pain" Associated Symptoms: denies: Fever, Chills, Nausea, Vomiting Additional History Per: Patient Past Medical History Reviewed: Historical Data, Nursing Documentation, Vital Signs Vital Signs: Last Vital Signs Temp Pulse 102 H 05/07/17 02:20 Resp 16 05/07/17 02:20 BP 115/82 05/07/17 00:22 Pulse Ox 98 05/07/17 02:20 - Medical History PMH: Arthritis, Asthma, Back Problems, HTN, Kidney Stones, Chronic Kidney Disease, Rheumatoid Arthritis Surgical History: Back Surgery Family History: States: Unknown Family Hx - Social History Hx Tobacco Use: Yes Hx Alcohol Use: Yes Hx Substance Use: No - Immunization History Hx Tetanus Toxoid Vaccination: No Hx Influenza Vaccination: Yes (04/11/2016) Hx Pneumococcal Vaccination: Yes (04/11/2016) Review Of Systems Constitutional: Negative for: Fever, Chills Gastrointestinal: Positive for: Abdominal Pain. Negative for: Nausea, Vomiting Physical Exam - Physical Exam Appears: Non-toxic, No Acute Distress Skin: Normal Color, Warm, Dry Head: Atraumatic, Normacephalic Eye(s): bilateral: Normal Inspection Oral Mucosa: Moist Neck: Supple Chest: Symmetrical, No Deformity, No Tenderness Cardiovascular: Rhythm Regular, No Murmur Respiratory: Normal Breath Sounds, No Rales, No Rhonchi, No Wheezing Gastrointestinal/Abdominal: Tenderness (to epigastric and mid-abdominal region ) , No Guarding, No Rebound Extremity: Normal ROM, Capillary Refill (less than 2 seconds ) Neurological/Psych: Oriented x3, Normal Speech, Normal Cognition Gait: Steady ED Course And Treatment - Laboratory Results Result Diagrams: 05/07/17 01:23 05/07/17 01:23 O2 Sat by Pulse Oximetry: 100 (on RA) Pulse Ox Interpretation: Normal Progress Note: Bloodwork, UA, CT A/P ordered and reviewed. Disposition Counseled Patient/Family Regarding: Diagnosis - Disposition Referrals: [facility] [Outside] Disposition: HOME/ ROUTINE Disposition Time: 04:36 Condition: STABLE Prescriptions: Famotidine [Pepcid] 20 mg PO BID #20 tab Instructions: Gastritis (GEN), Abuse of Alcohol (ED) Forms: [employer] ([place]) - POA Present On Arrival: None - Clinical Impression Clinical Impression: Abdominal discomfort, Gastritis, Alcohol abuse - Scribe Statement The provider has reviewed the documentation as recorded by the Scribe (Macie Solomon) Provider Attestation: All medical record entries made by the Scribe were at my direction and personally dictated by me. I have reviewed the chart and agree that the record accurately reflects my personal performance of the history, physical exam, medical decision making, and the department course for this patient. I have also personally directed, reviewed, and agree with the discharge instructions and disposition.
[2017-05-07] MEDS ORDERED: Iohexol 240 (50 ml) ONE (01:24)
[2017-05-07 01:27] LABS: BASO # 0.1 K/uL (0.0-0.2); BASO % 1.2 % (0.0-2.0); EOS # 0.5 K/uL (0.0-0.7); EOS % 8.9 % (0.0-4.0); HEMATOCRIT 39.8 % (35.0-51.0); LYMPH # 1.6 K/uL (1.0-4.3); LYMPH % 30.2 % (20.0-40.0); MEAN CELL VOLUME 100.8 fL (80.0-94.0); MEAN CORPUSCULAR HEMOGLOBIN 34.8 pg (27.0-31.0); MEAN CORPUSCULAR HGB CONC 34.6 g/dL (33.0-37.0); MEAN PLATELET VOLUME 7.5 fL (7.2-11.7); MONO # 0.4 K/uL (0.0-0.8); MONO % 8.2 % (0.0-10.0); RED CELL DISTRIBUTION WIDTH 14.9 % (11.5-14.5); WHITE BLOOD COUNT 5.2 K/uL (4.8-10.8)
[2017-05-07 01:37] LABS: RBC URINE < 1 /hpf (0-3); URINE BILIRUBIN NEGATIVE (NEGATIVE); URINE BLOOD NEGATIVE (NEGATIVE); URINE COLOR Yellow (YELLOW); URINE GLUCOSE (UA) NORMAL (Normal); URINE KETONE NEGATIVE (NEGATIVE); URINE LEUKOCYTE ESTERASE NEG Leu/uL (Negative); URINE PROTEIN 2+ mg/dL (NEGATIVE); URINE UROBILINOGEN NORMAL mg/dL (0.2-1.0); WBC URINE < 1 /hpf (0-5)
[2017-05-07 02:00] LABS: ALB/GLOB RATIO 1.2 (1.0-2.1); ALCOHOL SERUM 258 mg/dl (0-10); ALKALINE PHOSPHATASE 58 U/L (38-126); ALT/SGPT 14 U/L (21-72); AST/SGOT 45 U/L (17-59); BILIRUBIN,TOTAL 1.1 mg/dL (0.2-1.3); BLOOD UREA NITROGEN 6 mg/dL (9-20); CARBON DIOXIDE 26 mmol/L (22-30); CHLORIDE 101 mmol/L (98-107); GFR AFRICAN-AMERICAN > 60; GLUCOSE,RANDOM 112 mg/dL (75-110); SODIUM 139 mmol/L (132-148); TOTAL PROTEIN 8.3 g/dL (6.3-8.3)
[2017-05-07 02:07] LABS: POTASSIUM 4.8 mmol/L (3.6-5.2)
[2017-05-07] MEDS ORDERED: Iodixanol 320 MG/ML 100 ML BOTTLE IV ONE (02:28)
--- NOTE | 2017-05-07 04:07 | CT ---
EXAM: CT Abdomen and Pelvis With Intravenous Contrast CLINICAL HISTORY: 56 years old, male; Pain; Abdominal pain; Patient HX: 10-5-17. Ho. Kidney stone; Additional info: Abd pain mid and upper abd tenderness TECHNIQUE: Axial computed tomography images of the abdomen and pelvis with intravenous contrast. All CT scans at this facility use one or more dose reduction techniques, viz.: automated exposure control; ma/kV adjustment per patient size (including targeted exams where dose is matched to indication; i.e. head); or iterative reconstruction technique. Coronal and sagittal reformatted images were created and reviewed. CONTRAST: 100 mL of [id number] administered intravenously. COMPARISON: CT abdomen/pelvis 04/16/2017, CT chest 05/17/2016 FINDINGS: Limitations: Motion artifact - mild. Lower thorax: Several pulmonary nodules, grossly stable. Minimal atelectasis/scarring. LEFT pleural calcification. ABDOMEN: Liver: Probable mild fatty infiltration. Gallbladder and bile ducts: No calcified stones. No ductal dilation. Pancreas: No ductal dilation. No mass. Spleen: No splenomegaly. Adrenals: No mass. Kidneys and ureters: No mass. No hydronephrosis. Stomach and bowel: Segmental areas of mild mural thickening vs underdistention of large bowel. No associated inflammatory stranding. Appendix: No definite findings to suggest acute appendicitis. PELVIS: Bladder: Unremarkable. Reproductive: Unremarkable as visualized. ABDOMEN and PELVIS: Intraperitoneal space: No significant fluid collection. No free air. Bones/joints: Deformity/fusion across T10-T11 level, stable. Chronic L5 pars defects. No acute fracture. Soft tissues: Unremarkable. Vasculature: Mild atherosclerotic disease. No aneurysm. Lymph nodes: No pathologically enlarged lymph nodes. IMPRESSION: 1. Mild colitis vs underdistention. Favor underdistention. Clinical correlation is needed. 2. Pulmonary nodules, grossly stable. Followup as clinically warranted. 3. Incidental/non-acute findings are described above.
[2017-05-07 05:26] VITALS: BP 117/73; PULSE 110; RESP 20; TEMP 98; O2SAT 99
== END 2017-05-07 06:25 | disposition home or self-care (01) ==
LOC: C.ER 00:18
DX: K29.70 Gastritis, unspecified, without bleeding (principal); R10.13 Epigastric pain; F10.10 Alcohol abuse, uncomplicated; Y90.8 Blood alcohol level of 240 mg/100 ml or more
CPT/HCPCS: 74177; 80053; 81001; 83690; 85025; 96374; 99285; G0480; Q9966; Q9967